=== PATIENT | male | born 1945 | race Caucasian/White ===

== ENCOUNTER 2017-01-28 04:24 | Inpatient (IN) ==
[2017-01-28] MEDS ORDERED: ONDANSETRON 4 MG/2 ML VIAL IV STA (04:47)
[2017-01-28] MEDS ORDERED: NITROGLYCERIN 2% OINT 1 INCH/GM PACK TOP STA (04:47)
[2017-01-28] MEDS ORDERED: ASPIRIN 325 MG TABLET PO STA (04:47)
[2017-01-28] MEDS ORDERED: ALUM/MAG/SIMETH/LIDO VISC 1:1 30 ML BOTTLE PO STA (04:47)
[2017-01-28] MEDS ORDERED: MORPHINE 2 MG/1 ML SYRINGE IV STA (04:47)
--- NOTE | 2017-01-28 04:50 | EKG Report ---
Stationary ECG Study 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
--- NOTE | 2017-01-28 04:50 | EKG Report ---
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
--- NOTE | 2017-01-28 05:26 | Emergency Department Note ---
Madi Sheehan Brittany, am scribing for, and in the presence of, Rufino Reyes MD 05:23. Eric Sheehan Charles R, MD, personally performed the services described in this documentation, ascribed by Tessa Barraza in my presence, and it is both accurate and complete . Arrival - Arrival ED Nursing Triage Note: C/O Midsternal chest pain/sweating waking him up from sleep at 0345. Describes pain as sharp in natures radiating into left shoulder. Reports that the pain lasted approx 10 minutes then went away. Denies having any pain at time of triage. Mode of Arrival: Wheelchair Limitations: No Limitations Source: Patient, RN Notes Reviewed - History of Present Illness Onset (ago): hour(s) (1) Consistency: now resolved Severity: moderate Quality: sharp <Rufino Reyes - Last Filed: 01/28/17 06:08> <Perico Calderón - Last Filed: 01/28/17 07:09> - Arrival Chief Complaint: Chest Pain Stated Complaint: chest pains sweats Time Seen by Provider: 01/28/17 04:42 - History of Present Illness HPI Narrative: Patient is a 71 y/o white male presenting to the ED with c/o sharp, left-sided chest pain that radiates into the shoulder that woke him out of his sleep at 0345 this morning. Patient reports that he did become diaphoretic and clammy, but has not had any shortness of breath or nausea/vomiting. He states that after onset of pain he took an Aspirin with relief. Pain is not worsened upon exertion or taking deep breaths. Patient reports that as of now he feels back to his normal. PMHx of HTN and Diabetes Mellitus, but denies any prior cardiac history. PCP is Dr. Landry. Denies use of cigarettes. No further complaints. (Tessa Barraza) Patient is a 71 y/o white male presenting to the ED with c/o sharp, left-sided chest pain that radiates into the shoulder that woke him out of his sleep at 0345 this morning. Patient reports that he did become diaphoretic and clammy, but has not had any shortness of breath or nausea/vomiting. He states that after onset of pain he took an Aspirin with relief. Pain is not worsened upon exertion or taking deep breaths. Patient reports that as of now he feels back to his normal. PMHx of HTN and Diabetes Mellitus, but denies any prior cardiac history. PCP is Dr. Landry. Denies use of cigarettes. No further complaints. (Rufino Reyes) Allergies/Adverse Reactions: Allergies Allergy/AdvReac Type Severity Reaction Status Date / Time No Known Allergies Allergy Verified 01/28/17 04:28 Home Medications: Home Medications Medication Instructions Recorded Confirmed Type Unable To Obtain [Unable to Obtain] 01/28/17 01/28/17 History Review of System - Review of System 12 point system: reviewed and no additional remarkable complaints except as stated - Review of System Constitutional: Present: diaphoresis Respiratory: Absent: respiratory distress Cardiovascular: Present: chest pain Gastrointestinal: Absent: nausea <Rufino Reyes - Last Filed: 01/28/17 06:08> Medical,Surgical,& Family Hx - Medical History Cardio: History of: Hypertension Endocrine: History of: Dyslipidemia - Social History Smoking Status: Never smoker Frequency of Alcohol Use: None Type of Drug Use: None <Rufino Reyes - Last Filed: 01/28/17 06:08> Exam - General General appearance: alert, in no apparent distress - Head Head exam: Present: atraumatic, normocephalic, normal inspection - Eye Eye exam: Present: normal appearance, PERRL, EOMI - ENT ENT exam: Present: normal exam, normal oropharynx - Neck Neck exam: Present: normal inspection, full ROM, trachea midline - Chest Chest inspection: Present: normal inspection, symmetric chest wall rise - Respiratory Respiratory exam: Present: normal lung sounds bilaterally - Cardiovascular Cardiovascular exam: Present: regular rate, normal rhythm, normal heart sounds - Abdominal Exam Abdominal exam: Present: soft, normal bowel sounds. Absent: tenderness - Extremities Exam Extremities exam: Present: normal inspection - Back Exam Back exam: Present: normal inspection - Neurological Exam Neurological exam: Present: alert, oriented X3, CN II-XII intact. Absent: motor sensory deficit - Psychiatric Psychiatric exam: Present: normal affect, normal mood - Skin Skin exam: Present: warm, dry, intact, normal color <Rufino Reyes - Last Filed: 01/28/17 06:08> Vital Signs: Vital Signs Temperature 98.4 F 01/28/17 04:28 Pulse Rate 53 L 01/28/17 07:00 Respiratory Rate 20 01/28/17 07:00 Blood Pressure 147/77 01/28/17 07:00 O2 Sat by Pulse Oximetry 98 01/28/17 07:00 Course - Consultations Time: 06:08 <Rufino Reyes - Last Filed: 01/28/17 06:08> - Consultations Time: 07:09 <Perico Calderón - Last Filed: 01/28/17 07:09> - Consultations Consultation #1: Signed out to Dr. Calderón assuming care of this patient ER physician (Rufino Reyes) Consultation #2: Discussed with hospitalist. Patient will be seen by them in the emergency department. (Perico Calderón) Results <Rufino Reyes - Last Filed: 01/28/17 06:08> - Labs CBC & BMP: 01/28/17 05:54 01/28/17 05:54 Lab Results: I have reviewed the patients labs - EKG EKG results: interpreted by ERMD - Diagnostic Findings Procedure: Chest x-ray: image reviewed by me (No infiltrates, no pleural effusions.) <Perico Calderón - Last Filed: 01/28/17 07:09> - Labs Labs: Laboratory Tests 01/28/17 05:54 Troponin I < 0.015 (Perico Calderón) - Impressions EKG: Normal sinus rhythm with first-degree AV block, rate 63, nonspecific ST-T wave changes, incomplete right bundle branch block (Perico Calderón) Disposition Case discussed with: patient <Rufino Reyes - Last Filed: 01/28/17 06:08> Case discussed with: patient <Perico Calderón - Last Filed: 01/28/17 07:09> Clinical Impression: Chest pain, Unstable angina Disposition: Still a Patient Condition: Stable
[2017-01-28] MEDS ORDERED: ASPIRIN 325 MG TABLET ONE (05:40)
[2017-01-28] MEDS ORDERED: MORPHINE 2 MG/1 ML SYRINGE ONE (05:40)
[2017-01-28] MEDS ORDERED: ALUM/MAG/SIMETH/LIDO VISC 1:1 30 ML BOTTLE PO ONE (05:40)
[2017-01-28] MEDS ORDERED: ONDANSETRON 4 MG/2 ML VIAL ONE (05:40)
[2017-01-28] MEDS ORDERED: NITROGLYCERIN 2% OINT 1 INCH/GM PACK TOP ONE (05:40)
[2017-01-28 06:12] LABS: Basophils # 0.1 10*3/uL (0.0-0.2); Basophils % 0.7 % (0.0-0.8); Eosinophils # 0.2 10*3/uL (0.0-0.87); Eosinophils % 3.1 % (0.00-10.9); Hematocrit 42.2 VOL% (42.0-52.0); Hemoglobin 14.6 GM/DL (14.0-18.0); Immature Granulocytes % 0.4 %; Immature Granulocytes Absolute 0.03 #; Lymphocytes # 2.4 10*3/uL (1.4-4.0); Lymphocytes % 35.1 % (21.2-54.2); Mean Corpuscular HGB Conc 34.6 GM/DL (32-36); Mean Corpuscular Hemoglobin 35 PG (27-34); Mean Corpuscular Volume 101.2 FL (87-102); Monocytes # 0.7 10*3/uL (0.11-0.8); Monocytes % 10.6 % (1.7-12.7); Neutrophils # 3.4 10*3/uL (1.4-7.4); Neutrophils % 50.1 % (38.7-73.9); Platelet Count 156 T/CUMM (130-400); Red Blood Count 4.17 MC/CUMM (3.8-5.5); White Blood Count 6.8 T/CUMM (4-12)
[2017-01-28 06:35] LABS: Alanine Aminotransferase 47 U/L (16-61); Albumin 3.8 G/DL (3.4-5.0); Alkaline Phosphatase 98 U/L (45-117); Aspartate Amino Transferase 30 U/L (0-37); Bilirubin,Total < 0.39 MG/DL (0.2-1.0); Blood Urea Nitrogen 21 MG/DL (7-18); Calcium 8.8 MG/DL (8.5-10.1); Glucose 108 MG/DL (74-106); Magnesium 2.5 MG/DL (1.8-2.4); Sodium 143 MMOL/L (136-145); Total Protein 6.9 G/DL (6.4-8.3)
[2017-01-28] MEDS ORDERED: ENOXAPARIN 80 MG/0.8 ML SYRINGE SUBCUT STA (06:50)
[2017-01-28] MEDS ORDERED: ENOXAPARIN 80 MG/0.8 ML SYRINGE SUBCUT ONE (06:55)
[2017-01-28] MEDS ORDERED: MAGNESIUM SULF RIDER 2 GM in PREMIX 1 EACH IV PRN (08:13)
[2017-01-28] MEDS ORDERED: INSULIN LISPRO 100 UNIT/ML SUBCUT ONE (08:13)
[2017-01-28] MEDS ORDERED: ONDANSETRON 4 MG/2 ML VIAL IV PRN (08:13)
[2017-01-28] MEDS ORDERED: POTASSIUM CHLORIDE 20 MEQ TABLET PO PRN (08:13)
[2017-01-28] MEDS ORDERED: MAGNESIUM SULF RIDER 4 GM in PREMIX 1 EACH IV PRN (08:13)
--- NOTE | 2017-01-28 08:27 | EKG Report ---
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
--- NOTE | 2017-01-28 09:20 | XRay Report ---
Single view the chest. Indication: Chest pain. The heart is enlarged. The pulmonary vasculature is normal. The lung davidson are clear. No pneumothorax or pleural effusion. Normal osseous structures. Impression: Cardiomegaly. PROCEDURE INTERPRETED AT [facility] DEPARTMENT OF RADIOLOGY Final Report Signed by: Dr. Charlene Myles
--- NOTE | 2017-01-28 09:29 | Hospitalist History & Physical ---
<Ozzie Bansal - Last Filed: 01/28/17 09:09> Assessment and Plan - Time spent with patient Time spent with patient: Greater than 30 minutes (1) Chest pain Status: Acute Assessment and plan: Admit to telemetry. Serial EKGs and troponins. Consult cardiology for possible outpatient stress test. Current Visit: Yes (2) Hypertension Status: Acute Assessment and plan: Generally well controlled on home medications. Continue to monitor and restart home medications. (Patient has asked to take his own medications) Current Visit: Yes (3) Diabetes mellitus Status: Acute Assessment and plan: Continue home medications. Current Visit: Yes History of Present Illness Chief complaint: chest pain History of present illness: Mr. Matos is a 71 year old white male with a risk factors significant for age, hypertension, hyperlipidemia, and diabetes mellitus who presents to the [place] ED with complains of chest pain that started around 0340 this morning. This patient reports that this pain woke him from his sleep at which time he took 1/2 of a 325 mg aspirin then another whole 325 mg aspirin prior to heading to the hospital. He describes this pain as a "sharp electrical shock" that radiated to his left shoulder. He rates it a 7/10. Patient notes that, since taking the aspirin, the pain has subsided. He reports that he has not had any pain since arriving at the emergency room. He denies headache, blurry vision, current chest pain, pain on inspiration, nausea or vomiting, numbness/tingling, edema. Serial EKGs show sinus bradycardia with prolonged [place] interval. Troponins have been negative so far. Lab work reveals: WBC 6.8, hemoglobin 14.6, hematocrit 42.2, platelets 156, sodium 143, potassium 4.0, chloride 115, BUN 21, creatinine 1.00, serum glucose 108, magnesium 2.5. Patient tells me that he is quite active plays tennis, rides bikes, and swims several times a week. He denies alcohol and tobacco use. He reports he has been admitted for similar complaints before; however, his last stress test was in the 80's. Given his history and description of the chest pain, it would not be unwise to admit for observation with cardiology consult. This case has been discussed with Dr. Calderón, ER physician, and Dr. Au , admitting physician, and the patient will be admitted to the hospital medicine service for further evaluation and treatment. Home Medications Medication Instructions Recorded Confirmed Type Aspirin 162.5 mg PO QAM 01/28/17 01/28/17 History Glimepiride [Glimepiride] 2 mg PO QAM 01/28/17 01/28/17 History Metoprolol Succinate Xl [Toprol Xl] 100 mg PO QAM 01/28/17 01/28/17 History Rosuvastatin Calcium [Rosuvastatin 10 mg PO QAM 01/28/17 01/28/17 History Calcium] Allergies Allergy/AdvReac Type Severity Reaction Status Date / Time No Known Allergies Allergy Verified 01/28/17 04:28 Medical,Surgical,& Family Hx - Medical History Cardio: History of: Hypertension Endocrine: History of: Dyslipidemia - Family History Family History: Reports;: Family Diabetes, Family Hypertension, Family Stroke - Social History Smoking Status: Never smoker Frequency of Alcohol Use: None Type of Drug Use: None Marital Status: Lives With:: Spouse Functional capacity: independent ambulation 12 point system: reviewed and no additional remarkable complaints except as stated Exam - Constitutional Vitals: Period Temp Pulse Resp BP Sys/Espinal Pulse Ox Last 24 Hr 98.4 F-98.4 F 53-66 16-220 137-197/70-88 98-100 Exam: General appearance: normal weight, no acute distress - Head Head exam: Present: normocephalic, atraumatic - Eye Eye exam: Present: EOMI. Absent: conjunctival injection, nystagmus Pupils: Present: VIKAS, normal accommodation - ENT ENT exam: Present: normal exam, normal external ear exam - Neck Neck exam: Present: normal inspection. Absent: lymphadenopathy, tenderness, thyromegaly - Respiratory Respiratory exam: Present: clear to auscultation bilaterally. Absent: rales, rhonchi, wheezes - Cardiovascular Cardiovascular exam: Present: regular rate and rhythm. Absent: carotid bruit, gallop, rubs - GI/Abdominal GI/Abdominal exam: Present: normal bowel sounds. Absent: ascites, distended, mass - Extremities Exam Extremities exam: Present: normal inspection, normal capillary refill. Absent: edema - Back Exam Back exam: Absent: CVA tenderness (L), CVA tenderness (R) - Neurological Exam Neurological exam: Present: alert, oriented X3, CN II-XII intact, reflexes normal - Psychiatric Psychiatric exam: Present: normal affect, normal mood - Skin Skin exam: Present: normal color, warm, dry Results - Labs CBC & BMP: 01/28/17 05:54 01/28/17 05:54 Lab Results: I have reviewed the past 24 hour labs - EKG EKG results: interpreted by ROSALIO EKG shows: bradycardia <RoeSpencer - Last Filed: 01/28/17 17:42> History of Present Illness History of present illness: Patient seen and examined independently of MARIE Bansal, agree with history, assessment and plan as documented. Agree that his clinical picture is more consistent with GERD type pain. Cardiology consulted. Plan is for stress test tomorrow. Exam - Constitutional Vitals: Period Temp Pulse Resp BP Sys/Espinal Pulse Ox Last 24 Hr 97.4 F-98.9 F 48-66 16-220 115-197/60-88 96-100 Results - Labs CBC & BMP: 01/28/17 05:54 01/28/17 05:54
[2017-01-28] MEDS: GLIMEPIRIDE 2 MG TABLET PO SCH (13:07)
[2017-01-28] MEDS: ROSUVASTATIN 10 MG TABLET PO SCH (13:08)
[2017-01-28] MEDS: METOPROLOL SUCCINATE XL 100 MG TABLET PO SCH (13:08)
--- NOTE | 2017-01-28 15:06 | Cardiology Consult Note ---
Assessment and Plan (1) Chest pain Status: Acute Assessment and plan: 71-year-old male, presenting with rest onset chest pain, not typical for angina. Type 2 diabetes mellitus, hyperlipidemia, controlled Doubt ACS. Pain is more suggestive of GI or musculoskeletal origin. -We discussed cardiac evaluation options. We will proceed with stress test, n.p.o. 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 He was not seen by cardiology before He was admitted with sudden onset chest pain, which started last night, woke him up from sleep. He described his lower left chest pain, shooting, happening every few seconds, radiating to his left arm. He became anxious, diaphoretic. He took half an aspirin the pain slowly subsided In the ER, EKG showed no ischemic changes, cardiac biomarkers unremarkable. He is not anemic. MCV normal. No prior history of black stools or GI bleed, or ulcer disease. Chest x-ray quite unremarkable. He is currently feeling fine. He is quite active and participates in multiple sports activities, without exertional issues. No lower extremity swelling, history of DVT PE. Has history of hyperlipidemia, type 2 diabetes mellitus, all well-controlled. CC: Spencer Au MD - Home Medications and Allergies Home Medications: Home Medications Medication Instructions Recorded Confirmed Type Aspirin 162.5 mg PO QAM 01/28/17 01/28/17 History Glimepiride [Glimepiride] 2 mg PO QAM 01/28/17 01/28/17 History Metoprolol Succinate Xl [Toprol Xl] 100 mg PO QAM 01/28/17 01/28/17 History Rosuvastatin Calcium [Rosuvastatin 10 mg PO QAM 01/28/17 01/28/17 History Calcium] Allergies/Adverse Reactions: Allergies Allergy/AdvReac Type Severity Reaction Status Date / Time No Known Allergies Allergy Verified 01/28/17 04:28 12 point system: reviewed and no additional remarkable complaints except as stated Medical,Surgical,& Family Hx - Medical History Cardio: History of: Hypertension HEENT: History of: Ear Problem (tinnitus) Endocrine: History of: Dyslipidemia, Endocrine Problems (borderline diabetic) - Family History Family History: Reports;: Family Diabetes, Family Hypertension, Family Stroke - Social History Smoking Status: Never smoker Frequency of Alcohol Use: None Type of Drug Use: None Physical Examination Vital Signs Temp Pulse Resp BP Pulse Ox 98.4 F 66 16 196/88 98 01/28/17 04:28 01/28/17 04:01/28/17 04:01/28/17 04:01/28/17 04:28 General: Present: Appears Well, No Apparent Distress HEENT: Present: Normocephaly, Mucus Membranes Moist Neck: Present: No JVD/HJR, No Bruit, No Thyromegaly Cardiac: Present: Regular Rate, Regular Rhythm, No Murmur Lungs: Present: Normal Breath Sounds, No Wheeze, Rales, Rhonchi Neuro: Present: Grossly Intact Abdomen: Present: Soft, Active Bowel Sounds Skin: Present: Clear Musculoskeletal: Present: No Pain Gait: Present: Normal Gait Extremities: Present: No Clubbing, No Cyanosis, No Edema Result/EKG - Labs CBC & BMP: 01/28/17 05:54 01/28/17 05:54 Lab Results: I have reviewed the past 24 hour labs Labs: Laboratory Results - last 24 hr 01/28/17 01/28/17 01/28/17 05:54 05:54 05:54 WBC 6.8 RBC 4.17 Hgb 14.6 Hct 42.2 MCV 101.2 MCH 35 H MCHC 34.6 RDW 13.0 Plt Count 156 MPV 11.0 Neut % (Auto) 50.1 Lymph % (Auto) 35.1 Hall % (Auto) 10.6 Eos % (Auto) 3.1 Baso % (Auto) 0.7 Neut # (Auto) 3.4 Lymph # (Auto) 2.4 Hall # (Auto) 0.7 Eos # (Auto) 0.2 Baso # (Auto) 0.1 Immature Gran % 0.4 Nucleated RBC % 0.0 Immature Gran # 0.03 Nucleated RBCs # 0.00 Immature Plt Fraction 0.0 Sodium 143 Potassium 4.0 Chloride 110 H Carbon Dioxide 27 Anion Gap 10.0 BUN 21 H Creatinine 1.00 GFR Calculation 82 BUN/Creatinine Ratio 21.00 H Glucose 108 H POC Glucose Calculated Osmolality 288.0 Calcium 8.8 Magnesium 2.5 H Total Bilirubin < 0.39 AST 30 ALT 47 Alkaline Phosphatase 98 Troponin I B-Natriuretic Peptide 55 Total Protein 6.9 Albumin 3.8 Globulin 3.1 Albumin/Globulin Ratio 1.2 Lipase 299.0 01/28/17 01/28/17 01/28/17 05:54 08:30 11:00 WBC RBC Hgb Hct MCV MCH MCHC RDW Plt Count MPV Neut % (Auto) Lymph % (Auto) Hall % (Auto) Eos % (Auto) Baso % (Auto) Neut # (Auto) Lymph # (Auto) Hall # (Auto) Eos # (Auto) Baso # (Auto) Immature Gran % Nucleated RBC % Immature Gran # Nucleated RBCs # Immature Plt Fraction Sodium Potassium Chloride Carbon Dioxide Anion Gap BUN Creatinine GFR Calculation BUN/Creatinine Ratio Glucose POC Glucose Calculated Osmolality Calcium Magnesium Total Bilirubin AST ALT Alkaline Phosphatase Troponin I < 0.015 < 0.015 < 0.015 B-Natriuretic Peptide Total Protein Albumin Globulin Albumin/Globulin Ratio Lipase 01/28/17 12:39 WBC RBC Hgb Hct MCV MCH MCHC RDW Plt Count MPV Neut % (Auto) Lymph % (Auto) Hall % (Auto) Eos % (Auto) Baso % (Auto) Neut # (Auto) Lymph # (Auto) Hall # (Auto) Eos # (Auto) Baso # (Auto) Immature Gran % Nucleated RBC % Immature Gran # Nucleated RBCs # Immature Plt Fraction Sodium Potassium Chloride Carbon Dioxide Anion Gap BUN Creatinine GFR Calculation BUN/Creatinine Ratio Glucose POC Glucose 200 H Calculated Osmolality Calcium Magnesium Total Bilirubin AST ALT Alkaline Phosphatase Troponin I B-Natriuretic Peptide Total Protein Albumin Globulin Albumin/Globulin Ratio Lipase - EKG EKG results: interpreted by me
[2017-01-28] MEDS: INSULIN LISPRO 100 UNIT/ML SUBCUT SCH ×2 (17:22→20:53)
--- NOTE | 2017-01-28 18:18 | EKG Report ---
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
[2017-01-29 06:43] LABS: Risk Ratio 2.77; VLDL CHOLESTEROL 15.2 MG/DL
--- NOTE | 2017-01-29 09:46 | Cardiology Progress Note ---
Assessment and Plan - Time spent with patient Time spent with patient: Less than 30 minutes (1) Chest pain Status: Acute Assessment and plan: See plan of care listed below. Current Visit: Yes (2) Hypertension Status: Chronic Assessment and plan: See plan of care listed below. Current Visit: Yes (3) Diabetes mellitus Status: Chronic Assessment and plan: See plan of care listed below. Current Visit: Yes (4) Hyperlipidemia Status: Chronic Assessment and plan: See plan of care listed below. 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 Matos is a 71-year-old WM who is known to cardiology. He is admitted to the hospital with sudden onset chest pain which woke him up from sleep, not typical for angina. His EKG and cardiac biomarkers have been unremarkable. He is quite active and participates in multiple sports activities without exertional issues. Cardiac evaluation options were discussed and he was scheduled for nuclear stress testing this morning. 2016: Patient underwent nuclear stress testing this morning without difficulty. Results pending. He will be held NPO pending results of stress test. He denies any further episodes of chest discomfort. His vital signs and lab work are stable. His pain is more suggestive of GI or musculoskeletal etiology; if stress test negative, would pursue evaluation for other causes. Dr. Ingram to follow with further plan an addendum. IMPRESSION/PLAN: 1. CHEST PAIN: Patient underwent nuclear stress testing this morning without difficulty. His EKGs and cardiac biomarkers have remained unremarkable. If stress test is negative, would pursue further evaluation of GI or musculoskeletal etiology of pain. Continue aspirin, Crestor, Toprol-XL. 2. HYPERTENSION: Continue Toprol-XL. Currently well controlled. Will continue to monitor and adjust accordingly. 3. DIABETES MELLITUS: He is on Accu-Cheks with sliding scale insulin. 4. HYPERLIPIDEMIA: LDL 96. Continue Crestor. Exam (Progress Note) - Constitutional Vitals: Period Temp Pulse Resp BP Sys/Espinal Pulse Ox Last 24 Hr 97.4 F-99 F 50-63 17-20 115-155/67-88 95-98 Exam: General appearance: Appears well. Pleasant and cooperative. Overweight, no acute distress. Head exam: Present: normal inspection, normocephalic, atraumatic. Absent: hematoma, laceration Eye exam: Present: EOMI. Absent: conjunctival injection, nystagmus, periorbital swelling, scleral icterus, laceration to eyelids, jaundice Pupils: Present: PERRL. Absent: constricted, dilated, fixed, irregular, unequal ENT exam: Present: normal exam, normal external ear exam, mucous membranes moist. Neck exam: Present: normal inspection, midline trachea. Absent: masses, lymphadenopathy, tenderness, thyromegaly, carotid bruit Respiratory exam: Present: clear to auscultation bilaterally. Absent: accessory muscle use, chest wall tenderness, rales, rhonchi, wheezing. Cardiovascular exam: Present: regular rate and rhythm. Absent: gallop, JVD, rubs, murmur GI/Abdominal exam: Present: normal bowel sounds, soft. Absent: distended, firm , hernia, mass, tenderness. Extremities exam: Present: Normal Gait, No Clubbing, No Cyanosis, Upper Extr. Pulses 2+, Lower Extr. Pulses 2+, No edema. Capillary refill less than 3 seconds. Musculoskeletal: Present: No Fluid Collection, No Pain, Normal Range of Motion Back exam: Present: normal inspection. Absent: muscle spasm, vertebral tenderness Neurological exam: Present: awake, alert, oriented X3, Moves all extremities well without hemiparesis or paralysis. Grossly intact without resting or essential tremor Psychiatric exam: Present: normal affect, normal mood Skin exam: Present: normal color, warm, dry, intact. Absent: cyanosis, diaphoretic, rash, urticaria Result/EKG - Labs CBC & BMP: 01/28/17 05:54 01/28/17 05:54 Lab Results: I have reviewed the past 24 hour labs Labs: Laboratory Results - last 24 hr 01/28/17 01/28/17 01/28/17 11:00 12:39 16:46 POC Glucose 200 H 187 H Troponin I < 0.015 Triglycerides Cholesterol LDL Cholesterol VLDL Cholesterol HDL Cholesterol Heart Disease Risk Ratio 01/28/17 01/29/17 19:38 05:36 POC Glucose 109 H Troponin I Triglycerides 76 Cholesterol 172 LDL Cholesterol 96.0 VLDL Cholesterol 15.2 HDL Cholesterol 62 H Heart Disease Risk Ratio 2.77 - EKG EKG results: interpreted by me, sinus rhythm (With first-degree AV block)
--- NOTE | 2017-01-29 09:48 | Event Note ---
Patient with atypical chest pain for nuclear stress test this morning. Resting EKG showed sinus rhythm with first-degree AV block. Patient had approximately 1.5-[address] depression inferior laterally during stress testing, improved with rest. No other significant EKG changes noted. Target heart rate achieved in stage III of Joaquim protocol. Blood pressure responded appropriately. Patient had moderate dyspnea on exertion and fatigue, fair exercise tolerance. No chest pain, heaviness, or tightness. No dizziness, lightheadedness, or syncope. Patient now to nuclear medicine for final scan. Dr. Ingram to read, interpreted, and advise.
[2017-01-29] MEDS: INSULIN LISPRO 100 UNIT/ML SUBCUT SCH ×4 (10:29→21:56)
[2017-01-29] MEDS: ROSUVASTATIN 10 MG TABLET PO SCH (10:31)
[2017-01-29] MEDS: GLIMEPIRIDE 2 MG TABLET PO SCH (10:31)
[2017-01-29] MEDS: METOPROLOL SUCCINATE XL 100 MG TABLET PO SCH (10:31)
[2017-01-29] MEDS ORDERED: RANITIDINE 150 MG TABLET PO SCH (13:00)
[2017-01-29] MEDS: ASPIRIN EC 325 MG TABLET PO SCH (13:26)
[2017-01-29] MEDS ORDERED: MAGNESIUM SULF RIDER 2 GM in PREMIX 1 EACH IV PRN (17:30)
[2017-01-29] MEDS ORDERED: POTASSIUM CHLORIDE RIDER 10 MEQ in PREMIX 1 EACH IV PRN (17:30)
--- NOTE | 2017-01-29 18:00 | Hospitalist Progress Note ---
Assessment and Plan (1) Chest pain Status: Acute Assessment and plan: The patient has been offered coronary arteriogram due to abnormal stress test. Current Visit: Yes (2) Hypertension Status: Chronic Current Visit: Yes (3) Diabetes mellitus Status: Chronic Current Visit: Yes Hospitalist: Subjective Interval history: Mr. Matos was admitted to the hospital with chest pain which awakened him about 2 AM. The patient had treadmill exercise test today and had some ST depression. He has been offered coronary arteriogram for tomorrow morning. Exam - Constitutional Vitals: Period Temp Pulse Resp BP Sys/Espinal Pulse Ox Last 24 Hr 97.3 F-99 F 50-58 18-20 119-155/71-79 95-100 General appearance: normal weight - Respiratory Respiratory exam: Present: clear to auscultation bilaterally - Cardiovascular Cardiovascular exam: Present: regular rate and rhythm - GI/Abdominal GI/Abdominal exam: Present: normal bowel sounds Results - Labs CBC & BMP: 01/28/17 05:54 01/28/17 05:54 Lab Results: I have reviewed the past 24 hour labs
[2017-01-29] MEDS ORDERED: CLORAZEPATE 3.75 MG TABLET PO PRN (18:37)
[2017-01-29] MEDS ORDERED: hydrALAZINE 20 MG/1 ML VIAL IV ONE (21:02)
--- NOTE | 2017-01-29 21:23 | Nuclear Medicine Report ---
ATTENDING PHYSICIAN: Dr. Au. BRIEF CLINICAL SUMMARY: The patient is a 71-year-old with history of chest pain. EXERCISE SESTAMIBI MYOCARDIAL PERFUSION SCAN WITH GATING: The patient was injected with 10 mCi of sestamibi before being sent for resting images to be obtained. He was then placed on a treadmill where he completed achieved target heart rate in stage III on a Naima protocol. He had moderate dyspnea on exertion and fatigue, but had no chest discomfort. He had some significant greater than [address] depression that is flat in the anterolateral leads. At peak exercise, he was injected with 30 mCi of sestamibi and later sent for stress images to be obtained. The 3-D orthogonal and reconstruction views show a modest-sized reversible anterior defect of moderate severity. Perfusion of the inferior and lateral segments appears to be normal. The gated stress images show normal LV systolic function with ejection fraction estimated to be 58%. Wall motion is normal by regional wall motion analysis with normal end- diastolic volume. The raw data in cine mode shows moderate increased pulmonary uptake with moderate patient motion. There is modest artifact from the subdiaphragmatic structures. IMPRESSION: 1. CLINICALLY UNREMARKABLE AND ELECTROCARDIOGRAPHICALLY POSITIVE EXERCISE TREADMILL TEST WITH GREATER THAN [address] DEPRESSION NOTED AT ONE MINUTE AND 32 SECONDS IN STAGE III ON A NAIMA PROTOCOL WITH MILD BASELINE ABNORMALITY. 2. MODERATE ANTERIOR ISCHEMIA NOTED ON MYOCARDIAL SCAN OTHERWISE NORMAL. 3. NORMAL LEFT VENTRICULAR SYSTOLIC FUNCTION WITH EJECTION FRACTION ESTIMATED TO BE 58%. 4. NORMAL WALL MOTION BY REGIONAL WALL MOTION ANALYSIS WITH NORMAL END- DIASTOLIC VOLUME. DISPOSITION: This study suggesting moderate amount of anterior ischemia without scarring or abnormality on the distributions. The patient has normal LV function and fairly good exercise tolerance or encouraging with regard to his cardiovascular prognosis. Consider invasive evaluation versus medical therapy. Procedure performed and interpreted at [facility] Department of Radiology. [facility]
[2017-01-29] MEDS: FAMOTIDINE 20 MG TABLET PO SCH (21:52)
[2017-01-30 05:47] LABS: Basophils % 0.6 % (0.0-0.8); Eosinophils # 0.2 10*3/uL (0.0-0.87); Eosinophils % 3.6 % (0.00-10.9); Hematocrit 39.8 VOL% (42.0-52.0); Hemoglobin 13.8 GM/DL (14.0-18.0); Immature Granulocytes % 0.3 %; Immature Granulocytes Absolute 0.02 #; Lymphocytes # 2.4 10*3/uL (1.4-4.0); Lymphocytes % 38.3 % (21.2-54.2); Mean Corpuscular HGB Conc 34.7 GM/DL (32-36); Mean Corpuscular Hemoglobin 35 PG (27-34); Mean Corpuscular Volume 99.7 FL (87-102); Mean Platelet Volume 11.1 FL (9.6-12.0); Monocytes # 0.7 10*3/uL (0.11-0.8); Monocytes % 11.1 % (1.7-12.7); NRBC # 0.03 10*3/uL; Neutrophils # 2.9 10*3/uL (1.4-7.4); Neutrophils % 46.1 % (38.7-73.9); Platelet Count 149 T/CUMM (130-400); Red Blood Count 3.99 MC/CUMM (3.8-5.5); White Blood Count 6.3 T/CUMM (4-12)
[2017-01-30 05:59] LABS: PT Patient Result 10.4 SECS
[2017-01-30 06:18] LABS: Calcium 8.4 MG/DL (8.5-10.1); Magnesium 2.4 MG/DL (1.8-2.4); Potassium 3.9 MMOL/L (3.5-5.1)
[2017-01-30] MEDS ORDERED: diphenhydrAMINE CAP 25 MG CAPSULE PO ONE (07:00)
[2017-01-30] MEDS ORDERED: DIAZEPAM 5 MG TABLET PO ONE (07:00)
--- NOTE | 2017-01-30 08:27 | History and Physical Update ---
Sedation H&P Update - History and Physical H&P was reviewed, the patient examined and there: are no changes in the patients condition since last H&P was completed. (The patient had a high risk stress test with ST depression and reversible ischemia in the anterior ventricular myocardium EF 58%) - Dictation Physical: refer to H&P completed by admitting physician - Physical Exam Mental Status: alert and oriented Heart: regular rate and rhythm Lung: clear to auscultation Abdomen: within normal limits Vitals: within normal limits - Sedation Plan for Sedation: moderate Patient Consent: Procedure disscussed with patient and patinet has consented., Risks and benefits were discussed with patient,including infection,, bleeding, injury to surrounding structures, seizure, temporary nerve, Patient understands and accepts potential risks/benefits and agrees to, proceed. ASA Class: II Airway Assessment: Class II: Soft palate, uvula, fauces visible
[2017-01-30] MEDS: METOPROLOL SUCCINATE XL 100 MG TABLET PO SCH (08:28)
[2017-01-30] MEDS: ROSUVASTATIN 10 MG TABLET PO SCH (08:28)
[2017-01-30] MEDS: ASPIRIN EC 325 MG TABLET PO SCH (08:29)
[2017-01-30] MEDS: FAMOTIDINE 20 MG TABLET PO SCH ×2 (08:29→21:06)
[2017-01-30] MEDS ORDERED: LIDOCAINE 1% 20 ML VIAL ONE (08:32)
[2017-01-30] MEDS ORDERED: HEPARIN/NACL 0.9% 2 UNITS/ML 1,000 ML IV ONE (08:32)
[2017-01-30] MEDS ORDERED: NITROGLYCERIN DRIP 50 MG/250 ML BOTTLE IV ONE (08:32)
[2017-01-30] MEDS ORDERED: VERAPAMIL 5 MG/2 ML VIAL ONE (08:32)
[2017-01-30] MEDS: INSULIN LISPRO 100 UNIT/ML SUBCUT SCH ×4 (08:41→21:13)
[2017-01-30] MEDS ORDERED: MIDAZOLAM 2 MG/2 ML VIAL ONE (08:48)
[2017-01-30] MEDS ORDERED: fentaNYL 100 MCG/2 ML VIAL ONE (08:48)
[2017-01-30] MEDS ORDERED: ENOXAPARIN 60 MG/0.6 ML SYRINGE ONE (09:00)
--- NOTE | 2017-01-30 09:46 | Event Note ---
Please see the [facility] operative note. The patient has triple-vessel coronary disease been referred for coronary bypass grafting Dr. Rose saw the patient the Tamper Operator the patient will be scheduled for multivessel coronary bypass grafting on . I discussed with the patient I discussed with the patient' s Dr. Rose discussed with the patient's will discuss and examined the patient tomorrow morning.
[2017-01-30] MEDS ORDERED: GLUCAGON 1 MG VIAL IM PRN (09:56)
[2017-01-30] MEDS ORDERED: DEXTROSE 50% 25 GM/50 ML VIAL IV PRN (09:56)
[2017-01-30] MEDS ORDERED: SODIUM CHLORIDE 0.45% 1,000 ML IV SCH (10:00)
[2017-01-30] MEDS ORDERED: SODIUM CHLORIDE 0.9% 1,000 ML IV SCH (10:00)
--- NOTE | 2017-01-30 10:00 | Cardiothoracic Progress Note ---
Cardiothoracic Subjective Interval history: Patient is a 71-year-old man with severe coronary disease including left main coronary involvement. I reviewed the films and discussed with Dr. Oakley and we both agree that coronary bypass surgery is best approach. Our tentative plan is for surgery morning. Exam (Progress Note) - Constitutional Vitals: Period Temp Pulse Resp BP Sys/Espinal Pulse Ox Last 24 Hr 97.3 F-98.1 F 51-56 18-20 119-173/63-89 96-100 Result/EKG - Labs CBC & BMP: 01/30/17 05:23 01/30/17 05:23 Labs: Laboratory Results - last 24 hr 01/29/17 01/29/17 01/30/17 07:25 12:13 05:23 WBC 6.3 RBC 3.99 Hgb 13.8 L Hct 39.8 L MCV 99.7 MCH 35 H MCHC 34.7 RDW 13.0 Plt Count 149 MPV 11.1 Neut % (Auto) 46.1 Lymph % (Auto) 38.3 [place] % (Auto) 11.1 Eos % (Auto) 3.6 Baso % (Auto) 0.6 Neut # (Auto) 2.9 Lymph # (Auto) 2.4 [place] # (Auto) 0.7 Eos # (Auto) 0.2 Baso # (Auto) 0.0 Immature Gran % 0.3 Nucleated RBC % 0.5 Immature Gran # 0.02 Nucleated RBCs # 0.03 Immature Plt Fraction 0.0 INR PT Patient/Control Mix Sodium Potassium Chloride Carbon Dioxide Anion Gap BUN Creatinine GFR Calculation BUN/Creatinine Ratio Glucose POC Glucose 91 102 Calculated Osmolality Calcium Magnesium 01/30/17 01/30/17 01/30/17 05:23 05:23 07:30 WBC RBC Hgb Hct MCV MCH MCHC RDW Plt Count MPV Neut % (Auto) Lymph % (Auto) [place] % (Auto) Eos % (Auto) Baso % (Auto) Neut # (Auto) Lymph # (Auto) [place] # (Auto) Eos # (Auto) Baso # (Auto) Immature Gran % Nucleated RBC % Immature Gran # Nucleated RBCs # Immature Plt Fraction INR 1.0 PT Patient/Control Mix 10.4 Sodium 143 Potassium 3.9 Chloride 110 H Carbon Dioxide 26 Anion Gap 10.9 BUN 17 Creatinine 0.90 GFR Calculation 93 BUN/Creatinine Ratio 18.00 Glucose 99 POC Glucose 111 H Calculated Osmolality 286.0 Calcium 8.4 L Magnesium 2.4 Quality Measures - VTE Contraindication to Pharmacological VTE Prophylaxis: Already on Theraputic Agent , No Prophylaxis Needed
[2017-01-30 10:20] LABS: Basophils % 0.7 % (0.0-0.8); Eosinophils # 0.2 10*3/uL (0.0-0.87); Eosinophils % 3.1 % (0.00-10.9); Hematocrit 40.2 VOL% (42.0-52.0); Immature Granulocytes % 0.4 %; Immature Granulocytes Absolute 0.02 #; Lymphocytes # 1.9 10*3/uL (1.4-4.0); Lymphocytes % 33.2 % (21.2-54.2); Mean Corpuscular HGB Conc 34.8 GM/DL (32-36); Mean Corpuscular Hemoglobin 35 PG (27-34); Monocytes # 0.5 10*3/uL (0.11-0.8); Neutrophils % 53.6 % (38.7-73.9); Platelet Count 147 T/CUMM (130-400); Red Blood Count 4.02 MC/CUMM (3.8-5.5); White Blood Count 5.6 T/CUMM (4-12)
[2017-01-30] MEDS: GLIMEPIRIDE 2 MG TABLET PO SCH (12:50)
--- NOTE | 2017-01-30 15:57 | Hospitalist Progress Note ---
Assessment and Plan (1) Chest pain Status: Acute Assessment and plan: The patient is scheduled for CAB on . Current Visit: Yes (2) Hypertension Status: Chronic Current Visit: Yes (3) Diabetes mellitus Status: Chronic Current Visit: Yes Hospitalist: Subjective Interval history: The patient had an abnormal stress test. Coronary Arteriogram shows multivessel disease with left main involvement. The patient is scheduled for CAB on . Exam - Constitutional Vitals: Period Temp Pulse Resp BP Sys/Espinal Pulse Ox Last 24 Hr 97.1 F-98.1 F 40-61 14-20 96-173/42-89 97-100 General appearance: no acute distress - Respiratory Respiratory exam: Present: clear to auscultation bilaterally - Cardiovascular Cardiovascular exam: Present: regular rate and rhythm Results - Labs CBC & BMP: 01/30/17 10:12 01/30/17 05:23 Lab Results: I have reviewed the past 24 hour labs Quality Measures - VTE Contraindication to Pharmacological VTE Prophylaxis: Already on Theraputic Agent , No Prophylaxis Needed
[2017-01-30] MEDS: CHLORHEXIDINE 0.12% ORAL RINSE 60 ML BOTTLE SWISH/SPIT SCH (21:06)
[2017-01-31 03:52] LABS: ABG Base Excess -0.7 MMOL/L (-2.5-2.5); ABG HCO3 23.8 MMOL/L (20-26); ABG Oxygen Saturation 97.7 % (95-100); ABG PCO2 35.9 MM HG (35-48); ABG PH 7.419 (7.35-7.45); ABG TCO2 19.9 MMOL/L (23-27); Allen Test Positive; Pt O2 Delivery Device Room Air
[2017-01-31 05:36] LABS: Basophils # 0.1 10*3/uL (0.0-0.2); Basophils % 0.8 % (0.0-0.8); Eosinophils # 0.3 10*3/uL (0.0-0.87); Hematocrit 40.5 VOL% (42.0-52.0); Hemoglobin 13.7 GM/DL (14.0-18.0); Immature Granulocytes % 0.3 %; Immature Granulocytes Absolute 0.02 #; Lymphocytes # 2.5 10*3/uL (1.4-4.0); Lymphocytes % 38.5 % (21.2-54.2); Mean Corpuscular HGB Conc 33.8 GM/DL (32-36); Mean Corpuscular Hemoglobin 34 PG (27-34); Mean Corpuscular Volume 100.5 FL (87-102); Monocytes # 0.6 10*3/uL (0.11-0.8); Monocytes % 9.6 % (1.7-12.7); Neutrophils # 3.1 10*3/uL (1.4-7.4); Neutrophils % 46.8 % (38.7-73.9); Platelet Count 141 T/CUMM (130-400); Red Blood Count 4.03 MC/CUMM (3.8-5.5); Red Cell Distribution Width 13.2 % (9.3-17.3); White Blood Count 6.5 T/CUMM (4-12)
[2017-01-31 06:06] LABS: Calcium 8.3 MG/DL (8.5-10.1); Osmolality,Calculated 282.3 MOS/KG (273-304); Potassium 4.1 MMOL/L (3.5-5.1)
[2017-01-31 06:10] LABS: Albumin 3.3 G/DL (3.4-5.0); Bilirubin,Total 0.7 MG/DL (0.2-1.0); Calcium 8.5 MG/DL (8.5-10.1); Osmolality,Calculated 282.3 MOS/KG (273-304); Potassium 4.1 MMOL/L (3.5-5.1); Total Protein 6.2 G/DL (6.4-8.3)
--- NOTE | 2017-01-31 06:27 | Cardiothoracic Progress Note ---
Cardiothoracic Subjective Interval history: Patient is scheduled for surgery morning. This is been discussed at length with the patient's and I will discuss further with her and with her later this morning. Her was still sedated when I saw him yesterday. Exam (Progress Note) - Constitutional Vitals: Period Temp Pulse Resp BP Sys/Espinal Pulse Ox Last 24 Hr 97.1 F-98.0 F 40-61 14-20 96-155/42-72 97-100 Result/EKG - Labs CBC & BMP: 01/31/17 05:14 01/31/17 05:14 Labs: Laboratory Results - last 24 hr 01/30/17 01/30/17 01/30/17 07:30 10:12 12:06 WBC 5.6 RBC 4.02 Hgb 14.0 Hct 40.2 L MCV 100.0 MCH 35 H MCHC 34.8 RDW 13.0 Plt Count 147 MPV 11.0 Neut % (Auto) 53.6 Lymph % (Auto) 33.2 [place] % (Auto) 9.0 Eos % (Auto) 3.1 Baso % (Auto) 0.7 Neut # (Auto) 3.0 Lymph # (Auto) 1.9 [place] # (Auto) 0.5 Eos # (Auto) 0.2 Baso # (Auto) 0.0 Immature Gran % 0.4 Nucleated RBC % 0.0 Immature Gran # 0.02 Nucleated RBCs # 0.00 Immature Plt Fraction 0.0 ABG pH ABG pCO2 ABG pO2 ABG HCO3 ABG Total CO2 ABG O2 Saturation ABG Base Excess FiO2 Sodium Potassium Chloride Carbon Dioxide Anion Gap BUN Creatinine GFR Calculation BUN/Creatinine Ratio Glucose POC Glucose 111 H 97 Calculated Osmolality Calcium Total Bilirubin AST ALT Alkaline Phosphatase Total Protein Albumin Globulin Albumin/Globulin Ratio Blood Type Antibody Screen 01/30/17 01/30/17 01/31/17 15:20 21:09 03:37 WBC RBC Hgb Hct MCV MCH MCHC RDW Plt Count MPV Neut % (Auto) Lymph % (Auto) [place] % (Auto) Eos % (Auto) Baso % (Auto) Neut # (Auto) Lymph # (Auto) [place] # (Auto) Eos # (Auto) Baso # (Auto) Immature Gran % Nucleated RBC % Immature Gran # Nucleated RBCs # Immature Plt Fraction ABG pH 7.419 ABG pCO2 35.9 ABG pO2 101.0 H ABG HCO3 23.8 ABG Total CO2 19.9 L ABG O2 Saturation 97.7 ABG Base Excess -0.7 FiO2 21.00 Sodium Potassium Chloride Carbon Dioxide Anion Gap BUN Creatinine GFR Calculation BUN/Creatinine Ratio Glucose POC Glucose 161 H 117 H Calculated Osmolality Calcium Total Bilirubin AST ALT Alkaline Phosphatase Total Protein Albumin Globulin Albumin/Globulin Ratio Blood Type Antibody Screen 01/31/17 01/31/17 01/31/17 05:14 05:14 05:14 WBC 6.5 RBC 4.03 Hgb 13.7 L Hct 40.5 L MCV 100.5 MCH 34 MCHC 33.8 RDW 13.2 Plt Count 141 MPV 11.0 Neut % (Auto) 46.8 Lymph % (Auto) 38.5 [place] % (Auto) 9.6 Eos % (Auto) 4.0 Baso % (Auto) 0.8 Neut # (Auto) 3.1 Lymph # (Auto) 2.5 [place] # (Auto) 0.6 Eos # (Auto) 0.3 Baso # (Auto) 0.1 Immature Gran % 0.3 Nucleated RBC % 0.0 Immature Gran # 0.02 Nucleated RBCs # 0.00 Immature Plt Fraction 0.0 ABG pH ABG pCO2 ABG pO2 ABG HCO3 ABG Total CO2 ABG O2 Saturation ABG Base Excess FiO2 Sodium 141 141 Potassium 4.1 4.1 Chloride 109 H 109 H Carbon Dioxide 24 24 Anion Gap 12.1 12.1 BUN 19 H 19 H Creatinine 0.90 0.90 GFR Calculation 93 93 BUN/Creatinine Ratio 21.00 H 21.00 H Glucose 100 103 POC Glucose Calculated Osmolality 282.3 282.3 Calcium 8.3 L 8.5 Total Bilirubin 0.70 AST 25 ALT 35 Alkaline Phosphatase 87 Total Protein 6.2 L Albumin 3.3 L Globulin 2.9 Albumin/Globulin Ratio 1.1 Blood Type Antibody Screen 01/31/17 01/31/17 05:15 Unknown WBC RBC Hgb Hct MCV MCH MCHC RDW Plt Count MPV Neut % (Auto) Lymph % (Auto) [place] % (Auto) Eos % (Auto) Baso % (Auto) Neut # (Auto) Lymph # (Auto) [place] # (Auto) Eos # (Auto) Baso # (Auto) Immature Gran % Nucleated RBC % Immature Gran # Nucleated RBCs # Immature Plt Fraction ABG pH ABG pCO2 ABG pO2 ABG HCO3 ABG Total CO2 ABG O2 Saturation ABG Base Excess FiO2 Sodium Potassium Chloride Carbon Dioxide Anion Gap BUN Creatinine GFR Calculation BUN/Creatinine Ratio Glucose POC Glucose Calculated Osmolality Calcium Total Bilirubin AST ALT Alkaline Phosphatase Total Protein Albumin Globulin Albumin/Globulin Ratio Blood Type A POSITIVE A POSITIVE Antibody Screen Negative Quality Measures - VTE Contraindication to Pharmacological VTE Prophylaxis: Already on Theraputic Agent , No Prophylaxis Needed
--- NOTE | 2017-01-31 07:49 | EKG Report ---
Stationary ECG Study [facility] Test Date: 01/31/2017 7:50:59 AM Pat Name: EDU MERA Department: Room: 280 Gender: M Back Hoe Operator: MAGGI : [id number] Requested by: Jay Overton Order Number: [id number] Reading MD: LAMAR MORLEY Intervals [place] Rate: 57 P: 70 VT: 219 QRS: 23 QRSD: 86 T: 44 QT: 432 QTc: 425 Interpretive Statements SINUS RHYTHM WITH FIRST-DEGREE A-V B, WITH OCCASIONAL SUPRAVENTRICULAR PREMATURE COMPLEXES at 57 bpm POSSIBLE RIGHT VENTRICULAR CONDUCTION DELAY SEPTAL MYOCARDIAL INFARCTION, OF INDETERMINATE AGE Electronically Signed On 02-03-17 12:16:35 CDT by LAMAR MORLEY [email or web address]
--- NOTE | 2017-01-31 08:25 | XRay Report ---
XR chest 2V Indication: Coronary artery disease Comparison: 28 January 2017 Findings: The heart and mediastinum are normal in size and configuration. The pulmonary vascularity is normal in caliber. No lung infiltrates, effusions, pneumothorax or other abnormality is demonstrated. Impression: No acute cardiopulmonary disease. PROCEDURE INTERPRETED AT [facility] DEPARTMENT OF RADIOLOGY Final Report Signed by: Dr. Olayinka Saeed
[2017-01-31] MEDS: GLIMEPIRIDE 2 MG TABLET PO SCH (09:09)
[2017-01-31] MEDS: ROSUVASTATIN 10 MG TABLET PO SCH (09:10)
[2017-01-31] MEDS: ASPIRIN EC 325 MG TABLET PO SCH (09:10)
[2017-01-31] MEDS: FAMOTIDINE 20 MG TABLET PO SCH (09:10)
[2017-01-31] MEDS: CHLORHEXIDINE 0.12% ORAL RINSE 60 ML BOTTLE SWISH/SPIT SCH ×2 (09:11→21:28)
[2017-01-31] MEDS: INSULIN LISPRO 100 UNIT/ML SUBCUT SCH ×4 (09:17→21:35)
[2017-01-31] MEDS: METOPROLOL SUCCINATE XL 100 MG TABLET PO SCH (09:20)
[2017-01-31] MEDS ORDERED: CEFUROXIME INJ 1,500 MG in SODIUM CHLORIDE 0.9% 100 ML IV ONE (09:56)
[2017-01-31] MEDS: CHLORHEXIDINE 4% SOLN 118 ML BOTTLE TOP SCH ×2 (11:00→21:28)
--- NOTE | 2017-01-31 14:34 | Hospitalist Progress Note ---
Assessment and Plan (1) Chest pain Status: Acute Assessment and plan: The patient is scheduled for CAB on . Current Visit: Yes (2) Hypertension Status: Chronic Current Visit: Yes (3) Diabetes mellitus Status: Chronic Current Visit: Yes Hospitalist: Subjective Interval history: Mr. Matos has no further angina. The patient says that he is ready for his bypass surgery tomorrow. Exam - Constitutional Vitals: Period Temp Pulse Resp BP Sys/Espinal Pulse Ox Last 24 Hr 97.1 F-98.2 F 46-60 16-18 104-155/57-79 95-99 General appearance: no acute distress - Respiratory Respiratory exam: Present: clear to auscultation bilaterally - Cardiovascular Cardiovascular exam: Present: regular rate and rhythm Results - Labs CBC & BMP: 01/31/17 05:14 01/31/17 05:14 Lab Results: I have reviewed the past 24 hour labs Quality Measures - VTE Contraindication to Pharmacological VTE Prophylaxis: Already on Theraputic Agent , No Prophylaxis Needed
--- NOTE | 2017-01-31 14:51 | Cardiology Progress Note ---
Assessment and Plan - Time spent with patient Time spent with patient: Less than 30 minutes (1) Coronary artery disease Status: Acute Assessment and plan: See plan of care listed below. Current Visit: Yes (2) Hypertension Status: Chronic Assessment and plan: See plan of care listed below. Current Visit: Yes (3) Diabetes mellitus Status: Chronic Assessment and plan: See plan of care listed below. Current Visit: Yes (4) Hyperlipidemia Status: Chronic Assessment and plan: See plan of care listed below. Current Visit: Yes Cardiology - PN: Subj Interval history: Non Destructive Evaluation Manager: new to Dr. Cardona SUMMARY: Mr. Matos is a 71-year-old WM who is known to cardiology. He is admitted to the hospital with sudden onset chest pain which woke him up from sleep, not typical for angina. His EKG and cardiac biomarkers have been unremarkable. He is quite active and participates in multiple sports activities without exertional issues. He had an abnormal stress test and underwent cardiac catheterization which revealed severe 3 vessel coronary artery disease. He was referred to Dr. Rose for CABG and is planned for surgery on 02/01/17. 2016: Mr. Matos is doing well today. He has no complaints. His right radial cath site looks good. It is covered with a bandaid. There is no bleeding, hematoma, or bruit at site. Right radial pulse is 3+. He is scheduled for CABG in the morning with Dr. Rose. We will continue to follow post operatively. Dr. Ingram to follow with further plan and addendum. IMPRESSION/PLAN: 1. CORONARY ARTERY DISEASE: Patient is for CABG on 02/01/17. C revealed severe three-vessel coronary artery disease. 2. HYPERTENSION: Continue Toprol-XL. Currently well controlled. Will continue to monitor and adjust accordingly. 3. DIABETES MELLITUS: He is on Accu-Cheks with sliding scale insulin. 4. HYPERLIPIDEMIA: LDL 96. Continue Crestor. Exam (Progress Note) - Constitutional Vitals: Period Temp Pulse Resp BP Sys/Espinal Pulse Ox Last 24 Hr 97.1 F-98.2 F 46-60 16-18 104-155/57-79 95-99 Exam: General appearance: Appears well. Pleasant and cooperative. Overweight, no acute distress. Head exam: Present: normal inspection, normocephalic, atraumatic. Absent: hematoma, laceration Eye exam: Present: EOMI. Absent: conjunctival injection, nystagmus, periorbital swelling, scleral icterus, laceration to eyelids, jaundice Pupils: Present: PERRL. Absent: constricted, dilated, fixed, irregular, unequal ENT exam: Present: normal exam, normal external ear exam, mucous membranes moist. Neck exam: Present: normal inspection, midline trachea. Absent: masses, lymphadenopathy, tenderness, thyromegaly, carotid bruit Respiratory exam: Present: clear to auscultation bilaterally. Absent: accessory muscle use, chest wall tenderness, rales, rhonchi, wheezing. Cardiovascular exam: Present: regular rate and rhythm. Absent: gallop, JVD, rubs, murmur GI/Abdominal exam: Present: normal bowel sounds, soft. Absent: distended, firm , hernia, mass, tenderness. Extremities exam: Present: Normal Gait, No Clubbing, No Cyanosis, Upper Extr. Pulses 2+, Lower Extr. Pulses 2+, No edema. Capillary refill less than 3 seconds. Musculoskeletal: Present: No Fluid Collection, No Pain, Normal Range of Motion Back exam: Present: normal inspection. Absent: muscle spasm, vertebral tenderness Neurological exam: Present: awake, alert, oriented X3, Moves all extremities well without hemiparesis or paralysis. Grossly intact without resting or essential tremor Psychiatric exam: Present: normal affect, normal mood Skin exam: Present: normal color, warm, dry, intact. Absent: cyanosis, diaphoretic, rash, urticaria Cath site: Right wrist with bandaid intact. No bleeding, hematoma, or bruit. Radial pulse 3+. Result/EKG - Labs CBC & BMP: 01/31/17 05:14 01/31/17 05:14 Lab Results: I have reviewed the past 24 hour labs Labs: Laboratory Results - last 24 hr 01/30/17 01/30/17 01/31/17 15:20 21:09 03:37 WBC RBC Hgb Hct MCV MCH MCHC RDW Plt Count MPV Neut % (Auto) Lymph % (Auto) [place] % (Auto) Eos % (Auto) Baso % (Auto) Neut # (Auto) Lymph # (Auto) [place] # (Auto) Eos # (Auto) Baso # (Auto) Immature Gran % Nucleated RBC % Immature Gran # Nucleated RBCs # Immature Plt Fraction ABG pH 7.419 ABG pCO2 35.9 ABG pO2 101.0 H ABG HCO3 23.8 ABG Total CO2 19.9 L ABG O2 Saturation 97.7 ABG Base Excess -0.7 FiO2 21.00 Sodium Potassium Chloride Carbon Dioxide Anion Gap BUN Creatinine GFR Calculation BUN/Creatinine Ratio Glucose POC Glucose 161 H 117 H Calculated Osmolality Calcium Total Bilirubin AST ALT Alkaline Phosphatase Total Protein Albumin Globulin Albumin/Globulin Ratio Blood Type Antibody Screen Crossmatch 01/31/17 01/31/17 01/31/17 05:14 05:14 05:14 WBC 6.5 RBC 4.03 Hgb 13.7 L Hct 40.5 L MCV 100.5 MCH 34 MCHC 33.8 RDW 13.2 Plt Count 141 MPV 11.0 Neut % (Auto) 46.8 Lymph % (Auto) 38.5 [place] % (Auto) 9.6 Eos % (Auto) 4.0 Baso % (Auto) 0.8 Neut # (Auto) 3.1 Lymph # (Auto) 2.5 [place] # (Auto) 0.6 Eos # (Auto) 0.3 Baso # (Auto) 0.1 Immature Gran % 0.3 Nucleated RBC % 0.0 Immature Gran # 0.02 Nucleated RBCs # 0.00 Immature Plt Fraction 0.0 ABG pH ABG pCO2 ABG pO2 ABG HCO3 ABG Total CO2 ABG O2 Saturation ABG Base Excess FiO2 Sodium 141 141 Potassium 4.1 4.1 Chloride 109 H 109 H Carbon Dioxide 24 24 Anion Gap 12.1 12.1 BUN 19 H 19 H Creatinine 0.90 0.90 GFR Calculation 93 93 BUN/Creatinine Ratio 21.00 H 21.00 H Glucose 100 103 POC Glucose Calculated Osmolality 282.3 282.3 Calcium 8.3 L 8.5 Total Bilirubin 0.70 AST 25 ALT 35 Alkaline Phosphatase 87 Total Protein 6.2 L Albumin 3.3 L Globulin 2.9 Albumin/Globulin Ratio 1.1 Blood Type Antibody Screen Crossmatch 01/31/17 01/31/17 01/31/17 05:15 08:00 11:01 WBC RBC Hgb Hct MCV MCH MCHC RDW Plt Count MPV Neut % (Auto) Lymph % (Auto) [place] % (Auto) Eos % (Auto) Baso % (Auto) Neut # (Auto) Lymph # (Auto) [place] # (Auto) Eos # (Auto) Baso # (Auto) Immature Gran % Nucleated RBC % Immature Gran # Nucleated RBCs # Immature Plt Fraction ABG pH ABG pCO2 ABG pO2 ABG HCO3 ABG Total CO2 ABG O2 Saturation ABG Base Excess FiO2 Sodium Potassium Chloride Carbon Dioxide Anion Gap BUN Creatinine GFR Calculation BUN/Creatinine Ratio Glucose POC Glucose 99 153 H Calculated Osmolality Calcium Total Bilirubin AST ALT Alkaline Phosphatase Total Protein Albumin Globulin Albumin/Globulin Ratio Blood Type A POSITIVE Antibody Screen Negative Crossmatch See Detail 01/31/17 Unknown WBC RBC Hgb Hct MCV MCH MCHC RDW Plt Count MPV Neut % (Auto) Lymph % (Auto) [place] % (Auto) Eos % (Auto) Baso % (Auto) Neut # (Auto) Lymph # (Auto) [place] # (Auto) Eos # (Auto) Baso # (Auto) Immature Gran % Nucleated RBC % Immature Gran # Nucleated RBCs # Immature Plt Fraction ABG pH ABG pCO2 ABG pO2 ABG HCO3 ABG Total CO2 ABG O2 Saturation ABG Base Excess FiO2 Sodium Potassium Chloride Carbon Dioxide Anion Gap BUN Creatinine GFR Calculation BUN/Creatinine Ratio Glucose POC Glucose Calculated Osmolality Calcium Total Bilirubin AST ALT Alkaline Phosphatase Total Protein Albumin Globulin Albumin/Globulin Ratio Blood Type A POSITIVE Antibody Screen Crossmatch - EKG EKG results: interpreted by me, sinus rhythm EKG shows: bradycardia Quality Measures - VTE Contraindication to Pharmacological VTE Prophylaxis: Already on Theraputic Agent , No Prophylaxis Needed
[2017-01-31] MEDS ORDERED: CLORAZEPATE 3.75 MG TABLET PO PRN (16:07)
--- NOTE | 2017-01-31 18:18 | Sleep Medicine Consult ---
Assessment and Plan (1) Obstructive sleep apnea Status: Acute Assessment and plan: This patient has had difficult control obstructive sleep apnea in the past. He is undergoing bypass surgery tomorrow. We will follow-up with him postoperatively and schedule him for follow-up in the sleep clinic after discharge. We can utilize auto titration BiPAP postoperatively if needed. He has had significant difficulty with BiPAP in the past primarily related to treatment emergent central sleep apnea and I think he would be better served by reassessment with follow-up in sleep lab. Current Visit: Yes (2) Hypertension Status: Chronic Assessment and plan: The prevalence rate for obstructive sleep apnea patients with hypertension is 35 %. That rate can be as high as 80% in patients who require 4 or more medications for blood pressure control. Current Visit: Yes (3) Diabetes mellitus Status: Chronic Assessment and plan: The prevalence rate for obstructive sleep apnea in patients with type 2 diabetes can be as high as 86%. Those patients with moderate to severe obstructive sleep apnea are at a greater risk for diabetic nephropathy and neuropathy. Compliance with CPAP therapy for these patients can lead to improvement in glycemic control and improvement in insulin sensitivity. Current Visit: Yes History of Present Illness Chief complaint: Sleep apnea History of present illness: Mr. Matos is a 71 year old male known to me from previous sleep evaluation several years ago. He was found to have mild obstructive sleep apnea with a diagnostic AHI of 13.9. However, with CPAP titration, he developed treatment emergent central sleep apnea and ended up on BiPAP. He continued to do poorly on BiPAP and still had evidence of uncontrolled sleep apnea. It was recommended at that time that he come in for adaptive servo ventilation therapy but he did not keep those appointments and did not return phone calls. He has been admitted with chest pain and has been found to have multivessel coronary artery disease and is scheduled for bypass surgery tomorrow. He does continue to snore loudly and does have abnormal breathing. His notes the significance of his snoring and no longer sleeps in the same bedroom with him because of his snoring. He does still seem to be bothered with sleep and is willing to have his sleep apnea reevaluated and treated. Home Medications Medication Instructions Recorded Confirmed Type Aspirin 162.5 mg PO QAM 01/28/17 01/28/17 History Glimepiride [Glimepiride] 2 mg PO QAM 01/28/17 01/28/17 History Metoprolol Succinate Xl [Toprol Xl] 100 mg PO QAM 01/28/17 01/28/17 History Rosuvastatin Calcium [Rosuvastatin 10 mg PO QAM 01/28/17 01/28/17 History Calcium] Allergies Allergy/AdvReac Type Severity Reaction Status Date / Time No Known Allergies Allergy Verified 01/28/17 04:28 Review of systems: Otherwise unremarkable from sleep standpoint. Exam (Pulmonay) H&P - Constitutional Vitals: Period Temp Pulse Resp BP Sys/Espinal Pulse Ox Last 24 Hr 97.1 F-98.2 F 46-60 16-20 104-155/57-79 95-99 Exam: He is alert and responsive in no acute distress. Pupils equal round reactive to light and accommodation. Extraocular movements intact. Oropharynx with a class III Mallampati exam. Neck supple without adenopathy or thyromegaly. No supraclavicular adenopathy is noted. Chest with symmetrical breath sounds without focal wheeze, rhonchi, or rales. Cardiac exam reveals regular rhythm without murmur or gallop. Abdomen soft nontender without palpable hepatosplenomegaly or mass. Extremities without increased clubbing, cyanosis, or edema. Neurologically, he is grossly intact. He moves all extremities with good strength and ambulates with a normal gait. Medical,Surgical,& Family Hx - Medical History Cardio: History of: Hypertension HEENT: History of: Ear Problem (tinnitus) Endocrine: History of: Dyslipidemia, Endocrine Problems (borderline diabetic) - Family History Family History: Reports;: Family Diabetes, Family Hypertension, Family Stroke - Social History Smoking Status: Never smoker Frequency of Alcohol Use: None Type of Drug Use: None Results - Labs CBC & BMP: 01/31/17 05:14 01/31/17 05:14 Lab Results: I have reviewed the past 24 hour labs Quality Measures - VTE Contraindication to Pharmacological VTE Prophylaxis: Already on Theraputic Agent , No Prophylaxis Needed
[2017-01-31] MEDS ORDERED: ROSUVASTATIN 20 MG TABLET PO SCH (21:00)
[2017-01-31] MEDS: CAPTOPRIL 6.25 MG TABLET PO SCH (21:28)
[2017-01-31] MEDS: METOPROLOL TARTRATE 25 MG TABLET PO SCH (21:28)
[2017-02-01] MEDS ORDERED: PAPAVERINE 60 MG/2 ML VIAL ONE (04:49)
[2017-02-01] MEDS ORDERED: VANCOMYCIN 1,000 MG VIAL ONE (04:49)
[2017-02-01] MEDS ORDERED: LORazepam 1 MG TABLET PO ONE (05:30)
[2017-02-01] MEDS: FAMOTIDINE 20 MG TABLET PO SCH ×2 (05:47→09:26)
[2017-02-01] MEDS: METOPROLOL TARTRATE 25 MG TABLET PO SCH ×2 (05:48→09:25)
[2017-02-01] MEDS ORDERED: SODIUM CHLORIDE 0.9% 1,000 ML IV SCH (06:00)
[2017-02-01] MEDS ORDERED: CEFUROXIME INJ 1,500 MG in SODIUM CHLORIDE 0.9% 100 ML IV ONE (06:00)
[2017-02-01] MEDS ORDERED: PHENYLEPHRINE 1 MG/10 ML SYRINGE IV ONE (06:45)
[2017-02-01] MEDS ORDERED: MINERAL OIL/PETROLATUM OPH OINT 3.5 GM TUBE ONE (06:45)
[2017-02-01] MEDS ORDERED: NITROGLYCERIN 50 MG/250 ML BOTTLE IV ONE (06:45)
[2017-02-01] MEDS ORDERED: PHENYLEPHRINE 20 MG/250 ML PREMIX IV ONE (06:45)
[2017-02-01] MEDS ORDERED: AMINOCAPROIC ACID 5,000 MG/20 ML VIAL IV ONE (06:45)
[2017-02-01] MEDS ORDERED: HEPARIN/NACL 0.9% 2 UNITS/ML 500 ML IV ONE (06:45)
[2017-02-01] MEDS ORDERED: ETOMIDATE 20 MG/10 ML VIAL IV ONE (06:45)
[2017-02-01] MEDS ORDERED: LIDOCAINE 2% 5 ML VIAL ONE (06:45)
[2017-02-01] MEDS ORDERED: ROCURONIUM 100 MG/10 ML VIAL IV ONE (06:45)
[2017-02-01 07:56] LABS: ABG Base Excess -1.5 MMOL/L (-2.5-2.5); ABG HCO3 23.2 MMOL/L (20-26); ABG Oxygen Saturation 99.4 % (95-100); ABG PCO2 32.1 MM HG (35-48); ABG PH 7.438 (7.35-7.45); ABG TCO2 18.6 MMOL/L (23-27); Glucose Heart Surgery 128 MG/DL (74-106); Hematocrit Heart Surgery 42.7 PERCENT (42-52); Hemoglobin Heart Surgery 13.9 G/DL (14.0-18.0); Ionized Calcium Arterial 1.13 MMOL/L (1.21-1.46); PCO2 Patient Temp Arterial 32.1 MMHG; PH Patient Temp Arterial 7.438; Patient Temperature 37 CELCIUS; Potassium Heart/CVR 3.6 MMOL/L (3.5-5.1); Sodium Heart/CVR 141 MMOL/L (135-145)
[2017-02-01 08:01] LABS: Apearance,Urine CLEAR (Clear); Bilirubin,Urine Negative (Negative); Blood, Urine Negative (Negative); Glucose,Urine (UA) Negative (Negative); Hyaline Casts,Urine 3 /LPF (0-3); Ketones,Urine 20 mg/dL (Negative); Mucus,Urine Occasional /LPF (Occasional); Nitrite,Urine Negative (Negative); Protein,Urine Negative; RBC,Urine <1 /HPF (0-4); Squamous Epithelial Cell,Urine Occasional /HPF (0-10); Urine Color Yellow (Yellow); Urine Specific Gravity 1.021 (1.001-1.035); Urine Urobilinogen < 2.0 EU/DL (0.2-1.0); WBC,Urine <1 /HPF (0-6)
[2017-02-01] MEDS ORDERED: PHENYLEPHRINE DRIP 40 MG/250 ML PREMIX IV ONE (08:57)
[2017-02-01] MEDS ORDERED: POTASSIUM CHLORIDE RIDER 100 ML IV ONE (08:57)
[2017-02-01] MEDS ORDERED: CALCIUM CHLORIDE 1,000 MG/10 ML SYRINGE IV ONE (08:57)
[2017-02-01] MEDS ORDERED: NITROPRUSSIDE 50 MG/2 ML VIAL ONE (08:57)
[2017-02-01] MEDS ORDERED: SODIUM BICARBONATE 50 MEQ/50 ML SYRINGE IV ONE ×2 (08:59→12:26)
[2017-02-01] MEDS ORDERED: ALBUMIN 5% 12.5 GM/250 ML VIAL IV ONE (08:59)
[2017-02-01] MEDS: INSULIN LISPRO 100 UNIT/ML SUBCUT SCH ×2 (09:24→11:40)
[2017-02-01] MEDS: ASPIRIN EC 325 MG TABLET PO SCH (09:25)
[2017-02-01] MEDS: GLIMEPIRIDE 2 MG TABLET PO SCH (09:25)
[2017-02-01] MEDS: CAPTOPRIL 6.25 MG TABLET PO SCH (09:25)
[2017-02-01] MEDS: CHLORHEXIDINE 4% SOLN 118 ML BOTTLE TOP SCH (09:25)
[2017-02-01] MEDS: CHLORHEXIDINE 0.12% ORAL RINSE 60 ML BOTTLE SWISH/SPIT SCH ×2 (09:26→20:21)
[2017-02-01 10:42] LABS: Hematocrit Heart Surgery 27.6 PERCENT (42-52); Hemoglobin Heart Surgery 8.9 G/DL (14.0-18.0); PCO2 Patient Temp Venous 36.5 MM HG; PH Patient Temp Venous 7.421; PO2 Patient Temp Venous 39.8 MM HG; Potassium Heart/CVR 5.1 MMOL/L (3.5-5.1); VBG Base Excess -0.4 MEQ/L (0-4); VBG HCO3 23.9 MEQ/L (24-28); VBG Oxygen Saturation 84.3 %; VBG PCO2 42.2 MMHG (41-51); VBG PH 7.377; VBG PO2 48.9 MMHG (17-40)
[2017-02-01 11:17] LABS: Hematocrit Heart Surgery 28.3 PERCENT (42-52); Hemoglobin Heart Surgery 9.1 G/DL (14.0-18.0); PCO2 Patient Temp Venous 32.7 MM HG; PH Patient Temp Venous 7.446; PO2 Patient Temp Venous 39.7 MM HG; Potassium Heart/CVR 4.1 MMOL/L (3.5-5.1); VBG HCO3 23.4 MEQ/L (24-28); VBG Oxygen Saturation 84.7 %; VBG PCO2 37.8 MMHG (41-51); VBG PH 7.402; VBG PO2 48.8 MMHG (17-40)
[2017-02-01 12:23] LABS: ABG Base Excess -2.4 MMOL/L (-2.5-2.5); ABG HCO3 22.4 MMOL/L (20-26); ABG Oxygen Saturation 98.4 % (95-100); ABG PCO2 44.7 MM HG (35-48); ABG PH 7.331 (7.35-7.45); ABG TCO2 21.5 MMOL/L (23-27); Glucose Heart Surgery 225 MG/DL (74-106); Hematocrit Heart Surgery 32.7 PERCENT (42-52); Hemoglobin Heart Surgery 10.6 G/DL (14.0-18.0); Ionized Calcium Arterial 1.24 MMOL/L (1.21-1.46); PCO2 Patient Temp Arterial 44.7 MMHG; PH Patient Temp Arterial 7.331; Patient Temperature 37 CELCIUS; Potassium Heart/CVR 3.6 MMOL/L (3.5-5.1); Sodium Heart/CVR 142 MMOL/L (135-145)
[2017-02-01] MEDS ORDERED: ALBUMIN 25% 25 GM/100 ML VIAL IV ONE (12:26)
[2017-02-01] MEDS ORDERED: DEXTROSE 5% KCL 20 MEQ 20 MEQ/1,000 ML BAG IV ONE (12:26)
[2017-02-01] MEDS ORDERED: PROTAMINE SULFATE 250 MG/25 ML VIAL IV ONE (12:26)
[2017-02-01] MEDS ORDERED: MANNITOL 100 GM/500 ML BAG IV ONE (12:26)
[2017-02-01] MEDS ORDERED: PHENYLEPHRINE DRIP 20 MG/250 ML PREMIX IV ONE (12:26)
[2017-02-01] MEDS ORDERED: MAGNESIUM SULFATE 1 GM/2 ML VIAL ONE (12:26)
[2017-02-01] MEDS ORDERED: HEPARIN 10,000 UNIT/10 ML VIAL ONE (12:27)
[2017-02-01] MEDS ORDERED: POTASSIUM CHLORIDE 20 MEQ/10 ML VIAL ONE (12:27)
[2017-02-01] MEDS ORDERED: FUROSEMIDE 20 MG/2 ML VIAL ONE (12:27)
[2017-02-01] MEDS ORDERED: methylPREDNISolone SOD SUC 1,000 MG/8 ML VIAL ONE (12:27)
[2017-02-01] MEDS ORDERED: INSULIN REGULAR DRIP 100 ML IV ONE (12:35)
[2017-02-01] MEDS ORDERED: PROTAMINE SULFATE 50 MG/5 ML VIAL IV ONE ×2 (13:04→13:40)
--- NOTE | 2017-02-01 13:05 | Operative Note ---
Date of procedure: 02/01/17 Pre-op diagnosis: Coronary artery disease Post-op diagnosis: same Procedure: Coronary bypass grafting 3 with a left internal mammary artery graft to the diagonal coronary artery and saphenous vein graft to the obtuse marginal and right posterior descending coronary arteries. Findings: Patient is a 71-year-old man who presented with three-vessel coronary disease including left main coronary involvement. The time of surgery left ventricular function was noted to be normal. Saphenous vein grafts were placed to the obtuse marginal and to the right posterior descending coronary arteries. The left internal mammary artery was grafted to what I think was a diagonal coronary artery. He was the only vessel I could find on the anterior lateral surface of the heart and it appeared to be more lateral than the normal LAD position. However I was unable to find a vessel in the normal position of the anterior descending coronary artery. All of the distal vessels were of adequate size and free of disease at the site of anastomosis. Of note is that the saphenous vein in the lower legs was suboptimal for grafting. Accordingly vein was taken from the left thigh. Procedure: Patient brought to the operating room placed on the operating table in supine position. After satisfactory induction of general anesthesia the chest abdomen and legs were prepped and draped in sterile fashion. The greater saphenous vein was harvested as noted above from the left thigh. There was prepared as an arterial graft. Incisions in the leg were closed with 3-0 subcutaneous Monocryl and skin katelynn in the skin. Standard sternotomy incision was made and the sternum was divided and the heart suspended in a pericardial cradle. Left internal mammary artery was dissected free and prepared as an arterial graft. Patient was prepared for cardiopulmonary bypass with systemic heparinization and cannulation of the ascending aorta and right atrium. Cardiopulmonary bypass was begun and the aorta was crossclamped and the heart arrested with cardioplegia solution injected into the aortic root. Heart was protected during the period of crossclamping with topical saline slush. Distal anastomoses were constructed as noted above and then the aorta was unclamped reestablishing cardiac action. Proximal anastomoses were constructed between the ascending aorta and influenza of the saphenous vein grafts. Following this the patient was weaned from cardiopulmonary bypass without difficulty and heparin effect was reversed with protamine. Operative field was inspected for hemostasis and this was considered adequate the incision was closed with interrupted stainless steel wire and the sternum and 0 Monocryl on the presternal fascia. The skin was closed with 3-0 subcuticular Monocryl. Chest tubes were left in the left hemithorax in the right hemithorax in the anterior mediastinum and these were all brought out through separate stab incisions. Sterile dressings were applied and the patient was returned to intensive care in satisfactory condition. Anesthesia: SHERIF Surgeon / Physician: Jay Rose Estimated blood loss: other (Unable to determine because of cardiopulmonary bypass) Condition: stable Disposition: ICU Results - Labs CBC & BMP: 02/01/17 12:12 01/31/17 05:14 Discharge Plan - Discharge Medications No Action Rosuvastatin Calcium [Rosuvastatin Calcium] 10 mg PO QAM Aspirin 162.5 mg PO QAM Metoprolol Succinate Xl [Toprol Xl] 100 mg PO QAM Glimepiride [Glimepiride] 2 mg PO QAM - Follow Up or Referral - Forms/Instructions
[2017-02-01] MEDS ORDERED: ONDANSETRON 4 MG/2 ML VIAL IV PRN (13:11)
[2017-02-01] MEDS ORDERED: MAGNESIUM SULF RIDER 4 GM in PREMIX 1 EACH IV PRN (13:11)
[2017-02-01] MEDS ORDERED: DEXTROSE 50% 25 GM/50 ML SYRINGE IV PRN ×2 (13:11)
[2017-02-01] MEDS ORDERED: POTASSIUM CHLORIDE RIDER 10 MEQ in PREMIX 1 EACH IV PRN (13:11)
[2017-02-01] MEDS ORDERED: INSULIN REGULAR 100 UNIT/ML IV PRN (13:11)
[2017-02-01] MEDS ORDERED: LACTATED RINGERS 250 ML IV PRN (13:11)
[2017-02-01] MEDS ORDERED: PHENYLEPHRINE DRIP 40 MG/250 ML PREMIX IV PRN (13:11)
[2017-02-01] MEDS ORDERED: VECURONIUM 10 MG VIAL IV PRN ×2 (13:11)
[2017-02-01] MEDS ORDERED: MAGNESIUM SULF RIDER 2 GM in PREMIX 1 EACH IV PRN (13:11)
[2017-02-01] MEDS ORDERED: CALCIUM CHLORIDE 1,000 MG/10 ML SYRINGE IV PRN (13:11)
[2017-02-01] MEDS ORDERED: INSULIN REGULAR 100 UNIT/ML IV ONE (13:11)
[2017-02-01] MEDS ORDERED: ACETAMINOPHEN 650 MG SUPP RECTAL PRN (13:11)
[2017-02-01] MEDS ORDERED: MIDAZOLAM 10 MG/2 ML VIAL IV PRN (13:11)
[2017-02-01] MEDS ORDERED: NITROPRUSSIDE 100 MG in DEXTROSE 5% 250 ML IV PRN (13:11)
[2017-02-01] MEDS ORDERED: SEVOFLURANE 1 UNIT/15 MINUTE INH ONE (13:13)
[2017-02-01] MEDS ORDERED: SUFentanil 250 MCG/5 ML AMP ONE (13:13)
[2017-02-01] MEDS ORDERED: ePHEDrine 50 MG/ML AMP ONE (13:14)
[2017-02-01] MEDS ORDERED: SODIUM CHLORIDE 0.9% 250 ML IV ONE (13:14)
[2017-02-01] MEDS ORDERED: SODIUM CHLORIDE 0.9% 1,000 ML IV ONE (13:14)
[2017-02-01] MEDS: INSULIN REGULAR DRIP 100 ML IV SCH (13:15)
[2017-02-01 13:24] LABS: ABG Base Excess -1.7 MMOL/L (-2.5-2.5); ABG HCO3 20.7 MMOL/L (20-26); ABG Oxygen Saturation 97.7 % (95-100); ABG PCO2 28.4 MM HG (35-48); ABG TCO2 21.5 MMOL/L (23-27); Glucose Heart Surgery 202 MG/DL (74-106); Potassium Heart/CVR 3.9 MMOL/L (3.5-5.1)
[2017-02-01] MEDS: SODIUM CHLORIDE 0.45% 1,000 ML IV SCH ×2 (13:25→13:26)
[2017-02-01 13:28] LABS: Basophils % 0.2 % (0.0-0.8); Eosinophils % 0.3 % (0.00-10.9); Hematocrit 35.7 VOL% (42.0-52.0); Hemoglobin 12.5 GM/DL (14.0-18.0); Immature Granulocytes % 0.4 %; Immature Granulocytes Absolute 0.04 #; Lymphocytes % 9.2 % (21.2-54.2); Mean Corpuscular Hemoglobin 35 PG (27-34); Mean Platelet Volume 11.2 FL (9.6-12.0); Monocytes # 0.3 10*3/uL (0.11-0.8); Monocytes % 2.5 % (1.7-12.7); Neutrophils # 9.1 10*3/uL (1.4-7.4); Neutrophils % 87.4 % (38.7-73.9); Platelet Count 110 T/CUMM (130-400); Red Blood Count 3.57 MC/CUMM (3.8-5.5); Red Cell Distribution Width 13.2 % (9.3-17.3); White Blood Count 10.4 T/CUMM (4-12)
[2017-02-01] MEDS: MIDAZOLAM 2 MG/2 ML VIAL IV PRN (13:40)
[2017-02-01 13:46] LABS: INR 1.3; PT Patient Result 13.7 SECS; Partial Thromboplastin Time 28.5 SECS (0-40)
--- NOTE | 2017-02-01 13:49 | Hospitalist Progress Note ---
Assessment and Plan (1) Chest pain Status: Acute Assessment and plan: The patient had bypass surgery today. Dr. Rose says ventricular function was good. We anticipate a routine postoperative recovery Current Visit: Yes (2) Hypertension Status: Chronic Current Visit: Yes (3) Diabetes mellitus Status: Chronic Current Visit: Yes Hospitalist: Subjective Interval history: I evaluated Mr. Matos in the cardiovascular intensive care unit. I coordinated care with Dr. Rose. The patient tolerated bypass surgery well. Exam - Constitutional Vitals: Period Temp Pulse Resp BP Sys/Espinal Pulse Ox Last 24 Hr 97.2 F-98.0 F 55-64 10-20 109-154/66-72 96-98 General appearance: mild distress - Respiratory Respiratory exam: Present: clear to auscultation bilaterally - Cardiovascular Cardiovascular exam: Present: regular rate and rhythm - GI/Abdominal GI/Abdominal exam: Present: hypoactive bowel sounds Results - Labs CBC & BMP: 02/01/17 13:10 01/31/17 05:14 Lab Results: I have reviewed the past 24 hour labs Quality Measures - VTE Contraindication to Pharmacological VTE Prophylaxis: Already on Theraputic Agent , No Prophylaxis Needed
[2017-02-01 13:57] LABS: Albumin 3.4 G/DL (3.4-5.0); Bilirubin,Total 1.7 MG/DL (0.2-1.0); Calcium 8.5 MG/DL (8.5-10.1); Magnesium 2.4 MG/DL (1.8-2.4); Osmolality,Calculated 300.4 MOS/KG (273-304); Potassium 4.2 MMOL/L (3.5-5.1); Total Protein 5.7 G/DL (6.4-8.3)
[2017-02-01 13:59] LABS: CKMB % 7.4 %
[2017-02-01 14:02] LABS: Troponin I Only 7.79 NG/ML (0.00-0.045)
--- NOTE | 2017-02-01 14:08 | Cardiology Progress Note ---
Assessment and Plan - Time spent with patient Time spent with patient: Less than 30 minutes (1) Coronary artery disease Status: Acute Assessment and plan: See plan of care listed below. Current Visit: Yes (2) Hypertension Status: Chronic Assessment and plan: See plan of care listed below. Current Visit: Yes (3) Diabetes mellitus Status: Chronic Assessment and plan: See plan of care listed below. Current Visit: Yes (4) Hyperlipidemia Status: Chronic Assessment and plan: See plan of care listed below. Current Visit: Yes Cardiology - PN: Subj Interval history: [employer]: new to Dr. Cardona SUMMARY: Mr. Matos is a 71-year-old WM who is known to cardiology. He is admitted to the hospital with sudden onset chest pain which woke him up from sleep, not typical for angina. His EKG and cardiac biomarkers have been unremarkable. He is quite active and participates in multiple sports activities without exertional issues. He had an abnormal stress test and underwent cardiac catheterization which revealed severe 3 vessel coronary artery disease. He was referred to Dr. Rose for CABG and is planned for surgery on 02/01/17. 2016: Mr. Matos is seen post operatively from CABG. He is currently stable, requiring low doses of vasopressors. Mediastinal chest tubes are intact. He is currently fairly stable. We will continue to follow post operatively. Once able, we will resume his metoprolol, captopril, and crestor. Dr. Ingram to follow with further plan and addendum. IMPRESSION/PLAN: 1. CORONARY ARTERY DISEASE: Patient is post operative from CABG x3 with HESS to diagonal, SVG to obtuse marginal, and SVG to right PDA. 2. HYPERTENSION: Continue Toprol-XL once able to tolerate. Currently requiring vasopressors. 3. DIABETES MELLITUS: He is on Accu-Cheks with insulin infusion. 4. HYPERLIPIDEMIA: LDL 96. Continue Crestor once able. Exam (Progress Note) - Constitutional Vitals: Period Temp Pulse Resp BP Sys/Espinal Pulse Ox Last 24 Hr 97.2 F-98.0 F 55-64 10-20 109-154/66-72 96-98 Exam: General appearance: Orally intubated and on ventilator. Normal weight, no acute distress. Head exam: Present: normal inspection, normocephalic, atraumatic. Absent: hematoma, laceration Eye exam: Present: EOMI. Absent: conjunctival injection, nystagmus, periorbital swelling, scleral icterus, laceration to eyelids Pupils: Present: PERRL. Absent: constricted, dilated, fixed, irregular, unequal ENT exam: Present: Orally intubated, normal external ear exam Neck exam: Present: normal inspection. Absent: lymphadenopathy, meningismus, tenderness, thyromegaly Respiratory exam: Present: Mechanically ventilated breath sounds. Absent: accessory muscle use Cardiovascular exam: Present: regular rate and rhythm. Absent: carotid bruit, gallop, JVD, rubs, murmur GI/Abdominal exam: Present: absent, soft. Absent: distended, firm, guarding, hernia, mass, tenderness, rebound. Extremities exam: Present: normal inspection, normal capillary refill. Upper extremity pulses 2+. Lower extremity pulses 2+. Absent: calf tenderness, edema Back exam: Present: Unable to examine due to habitus. Post op on mechanical ventilator. Neurological exam: Present: Limited due to habitus (on ventilator). No resting or essential tremor. Psychiatric exam: Present: Unable to adequately assess due to patient being post op from CABG and on mechanical ventilation. Skin exam: Present: normal color, warm, dry, intact. Absent: cyanosis, diaphoretic, rash, urticaria Result/EKG - Labs CBC & BMP: 02/01/17 13:10 02/01/17 13:10 Lab Results: I have reviewed the past 24 hour labs Labs: Laboratory Results - last 24 hr 01/31/17 01/31/17 01/31/17 05:15 15:21 19:28 WBC RBC Hgb Hct MCV MCH MCHC RDW Plt Count MPV Neut % (Auto) Lymph % (Auto) [place] % (Auto) Eos % (Auto) Baso % (Auto) Neut # (Auto) Lymph # (Auto) [place] # (Auto) Eos # (Auto) Baso # (Auto) Immature Gran % Nucleated RBC % Immature Gran # Nucleated RBCs # Immature Plt Fraction INR PT Patient/Control Mix Circ Anticoag PTT Patient Temperature ABG pH ABG pH at Pt Temp ABG pCO2 ABG pCO2 at Pt Temp ABG pO2 ABG pO2 at Pt Temp ABG HCO3 ABG Total CO2 ABG O2 Saturation ABG Base Excess ABG Sodium VBG pH VBG pCO2 VBG pO2 VBG HCO3 VBG Total CO2 VBG O2 Saturation VBG Base Excess Hemoglobin Hematocrit Potassium Glucose Ionized Calcium FiO2 Sodium Chloride Carbon Dioxide Anion Gap BUN Creatinine GFR Calculation BUN/Creatinine Ratio POC Glucose 117 H 196 H Calculated Osmolality Calcium Venous Ioniz Calcium Magnesium Total Bilirubin AST ALT Alkaline Phosphatase Total Creatine Kinase CK-MB (CK-2) CK and CKMB Interp Troponin I Total Protein Albumin Globulin Albumin/Globulin Ratio Urine Color Urine Appearance Urine pH Ur Specific [place] Urine Protein Urine Glucose (UA) Urine Ketones Urine Blood Urine Nitrate Urine Bilirubin Urine Urobilinogen Urine Leukocytes Urine RBC Urine WBC Ur Squamous Epith Cells Hyaline Casts Urine Mucus Ur Culture Indicated? Blood Type A POSITIVE Antibody Screen Negative Crossmatch See Detail 02/01/17 02/01/17 02/01/17 04:35 07:51 07:51 WBC RBC Hgb Hct MCV MCH MCHC RDW Plt Count 83 L D MPV Neut % (Auto) Lymph % (Auto) [place] % (Auto) Eos % (Auto) Baso % (Auto) Neut # (Auto) Lymph # (Auto) [place] # (Auto) Eos # (Auto) Baso # (Auto) Immature Gran % Nucleated RBC % Immature Gran # Nucleated RBCs # Immature Plt Fraction INR PT Patient/Control Mix Circ Anticoag PTT Patient Temperature 37 ABG pH 7.438 ABG pH at Pt Temp 7.438 ABG pCO2 32.1 L ABG pCO2 at Pt Temp 32.1 ABG pO2 267.0 H ABG pO2 at Pt Temp 267.0 ABG HCO3 23.2 ABG Total CO2 18.6 L ABG O2 Saturation 99.4 ABG Base Excess -1.5 ABG Sodium 141 VBG pH VBG pCO2 VBG pO2 VBG HCO3 VBG Total CO2 VBG O2 Saturation VBG Base Excess Hemoglobin 13.9 L Hematocrit 42.7 Potassium 3.6 Glucose 128 H Ionized Calcium 1.13 L FiO2 Sodium Chloride Carbon Dioxide Anion Gap BUN Creatinine GFR Calculation BUN/Creatinine Ratio POC Glucose 120 H Calculated Osmolality Calcium Venous Ioniz Calcium Magnesium Total Bilirubin AST ALT Alkaline Phosphatase Total Creatine Kinase CK-MB (CK-2) CK and CKMB Interp Troponin I Total Protein Albumin Globulin Albumin/Globulin Ratio Urine Color Urine Appearance Urine pH Ur Specific [place] Urine Protein Urine Glucose (UA) Urine Ketones Urine Blood Urine Nitrate Urine Bilirubin Urine Urobilinogen Urine Leukocytes Urine RBC Urine WBC Ur Squamous Epith Cells Hyaline Casts Urine Mucus Ur Culture Indicated? Blood Type Antibody Screen Crossmatch 02/01/17 02/01/17 02/01/17 07:54 10:40 11:10 WBC RBC Hgb Hct MCV MCH MCHC RDW Plt Count MPV Neut % (Auto) Lymph % (Auto) [place] % (Auto) Eos % (Auto) Baso % (Auto) Neut # (Auto) Lymph # (Auto) [place] # (Auto) Eos # (Auto) Baso # (Auto) Immature Gran % Nucleated RBC % Immature Gran # Nucleated RBCs # Immature Plt Fraction INR PT Patient/Control Mix Circ Anticoag PTT Patient Temperature 34 34 ABG pH ABG pH at Pt Temp 7.421 7.446 ABG pCO2 ABG pCO2 at Pt Temp 36.5 32.7 ABG pO2 ABG pO2 at Pt Temp 39.8 39.7 ABG HCO3 ABG Total CO2 ABG O2 Saturation ABG Base Excess ABG Sodium 136 139 VBG pH 7.377 7.402 VBG pCO2 42.2 37.8 L VBG pO2 48.9 H 48.8 H VBG HCO3 23.9 L 23.4 L VBG Total CO2 23.0 21.7 VBG O2 Saturation 84.3 84.7 VBG Base Excess -0.4 L -1.0 L Hemoglobin 8.9 L D 9.1 L Hematocrit 27.6 L 28.3 L Potassium 5.1 4.1 Glucose 357 H 288 H Ionized Calcium FiO2 80.00 80.00 Sodium Chloride Carbon Dioxide Anion Gap BUN Creatinine GFR Calculation BUN/Creatinine Ratio POC Glucose Calculated Osmolality Calcium Venous Ioniz Calcium 0.90 L 0.94 L Magnesium Total Bilirubin AST ALT Alkaline Phosphatase Total Creatine Kinase CK-MB (CK-2) CK and CKMB Interp Troponin I Total Protein Albumin Globulin Albumin/Globulin Ratio Urine Color Yellow Urine Appearance Clear Urine pH 5.0 Ur Specific [place] 1.021 Urine Protein Negative Urine Glucose (UA) Negative Urine Ketones 20 Urine Blood Negative Urine Nitrate Negative Urine Bilirubin Negative Urine Urobilinogen < 2.0 H Urine Leukocytes Negative Urine RBC <1 Urine WBC <1 Ur Squamous Epith Cells Occasional Hyaline Casts 3 Urine Mucus Occasional Ur Culture Indicated? Not indicated Blood Type Antibody Screen Crossmatch 02/01/17 02/01/17 02/01/17 12:12 12:20 13:10 WBC 10.4 D RBC 3.57 L Hgb 12.5 L Hct 35.7 L MCV 100.0 MCH 35 H MCHC 35.0 RDW 13.2 Plt Count 87 L 110 L D MPV 11.2 Neut % (Auto) 87.4 H Lymph % (Auto) 9.2 L [place] % (Auto) 2.5 Eos % (Auto) 0.3 Baso % (Auto) 0.2 Neut # (Auto) 9.1 H Lymph # (Auto) 1.0 L [place] # (Auto) 0.3 Eos # (Auto) 0.0 Baso # (Auto) 0.0 Immature Gran % 0.4 Nucleated RBC % 0.0 Immature Gran # 0.04 Nucleated RBCs # 0.00 Immature Plt Fraction 0.0 INR PT Patient/Control Mix Circ Anticoag PTT Patient Temperature 37 ABG pH 7.331 L ABG pH at Pt Temp 7.331 ABG pCO2 44.7 ABG pCO2 at Pt Temp 44.7 ABG pO2 133.0 H ABG pO2 at Pt Temp 133.0 ABG HCO3 22.4 ABG Total CO2 21.5 L ABG O2 Saturation 98.4 ABG Base Excess -2.4 ABG Sodium 142 VBG pH VBG pCO2 VBG pO2 VBG HCO3 VBG Total CO2 VBG O2 Saturation VBG Base Excess Hemoglobin 10.6 L Hematocrit 32.7 L Potassium 3.6 Glucose 225 H Ionized Calcium 1.24 FiO2 Sodium Chloride Carbon Dioxide Anion Gap BUN Creatinine GFR Calculation BUN/Creatinine Ratio POC Glucose Calculated Osmolality Calcium Venous Ioniz Calcium Magnesium Total Bilirubin AST ALT Alkaline Phosphatase Total Creatine Kinase CK-MB (CK-2) CK and CKMB Interp Troponin I Total Protein Albumin Globulin Albumin/Globulin Ratio Urine Color Urine Appearance Urine pH Ur Specific [place] Urine Protein Urine Glucose (UA) Urine Ketones Urine Blood Urine Nitrate Urine Bilirubin Urine Urobilinogen Urine Leukocytes Urine RBC Urine WBC Ur Squamous Epith Cells Hyaline Casts Urine Mucus Ur Culture Indicated? Blood Type Antibody Screen Crossmatch 02/01/17 02/01/17 02/01/17 13:10 13:10 13:10 WBC RBC Hgb Hct MCV MCH MCHC RDW Plt Count MPV Neut % (Auto) Lymph % (Auto) [place] % (Auto) Eos % (Auto) Baso % (Auto) Neut # (Auto) Lymph # (Auto) [place] # (Auto) Eos # (Auto) Baso # (Auto) Immature Gran % Nucleated RBC % Immature Gran # Nucleated RBCs # Immature Plt Fraction INR 1.3 PT Patient/Control Mix 13.7 D Circ Anticoag PTT 28.5 Patient Temperature ABG pH ABG pH at Pt Temp ABG pCO2 ABG pCO2 at Pt Temp ABG pO2 ABG pO2 at Pt Temp ABG HCO3 ABG Total CO2 ABG O2 Saturation ABG Base Excess ABG Sodium VBG pH VBG pCO2 VBG pO2 VBG HCO3 VBG Total CO2 VBG O2 Saturation VBG Base Excess Hemoglobin Hematocrit Potassium 4.2 Glucose 220 H Ionized Calcium FiO2 Sodium 147 H Chloride 113 H Carbon Dioxide 24 Anion Gap 14.2 BUN 17 Creatinine 1.20 GFR Calculation 65 BUN/Creatinine Ratio 14.00 POC Glucose Calculated Osmolality 300.4 Calcium 8.5 Venous Ioniz Calcium Magnesium 2.4 Total Bilirubin 1.70 H AST 41 H ALT 29 Alkaline Phosphatase 74 Total Creatine Kinase 371 H CK-MB (CK-2) 27.6 H CK and CKMB Interp 7.4 Troponin I 7.790 H Total Protein 5.7 L Albumin 3.4 Globulin 2.3 Albumin/Globulin Ratio 1.4 Urine Color Urine Appearance Urine pH Ur Specific [place] Urine Protein Urine Glucose (UA) Urine Ketones Urine Blood Urine Nitrate Urine Bilirubin Urine Urobilinogen Urine Leukocytes Urine RBC Urine WBC Ur Squamous Epith Cells Hyaline Casts Urine Mucus Ur Culture Indicated? Blood Type Antibody Screen Crossmatch 02/01/17 13:11 WBC RBC Hgb Hct MCV MCH MCHC RDW Plt Count MPV Neut % (Auto) Lymph % (Auto) [place] % (Auto) Eos % (Auto) Baso % (Auto) Neut # (Auto) Lymph # (Auto) [place] # (Auto) Eos # (Auto) Baso # (Auto) Immature Gran % Nucleated RBC % Immature Gran # Nucleated RBCs # Immature Plt Fraction INR PT Patient/Control Mix Circ Anticoag PTT Patient Temperature ABG pH 7.480 H ABG pH at Pt Temp ABG pCO2 28.4 L ABG pCO2 at Pt Temp ABG pO2 97.0 H ABG pO2 at Pt Temp ABG HCO3 20.7 ABG Total CO2 21.5 L ABG O2 Saturation 97.7 ABG Base Excess -1.7 ABG Sodium VBG pH VBG pCO2 VBG pO2 VBG HCO3 VBG Total CO2 VBG O2 Saturation VBG Base Excess Hemoglobin 13.0 L Hematocrit 38.0 L Potassium 3.9 Glucose 202 H Ionized Calcium FiO2 Sodium Chloride Carbon Dioxide Anion Gap BUN Creatinine GFR Calculation BUN/Creatinine Ratio POC Glucose Calculated Osmolality Calcium Venous Ioniz Calcium Magnesium Total Bilirubin AST ALT Alkaline Phosphatase Total Creatine Kinase CK-MB (CK-2) CK and CKMB Interp Troponin I Total Protein Albumin Globulin Albumin/Globulin Ratio Urine Color Urine Appearance Urine pH Ur Specific [place] Urine Protein Urine Glucose (UA) Urine Ketones Urine Blood Urine Nitrate Urine Bilirubin Urine Urobilinogen Urine Leukocytes Urine RBC Urine WBC Ur Squamous Epith Cells Hyaline Casts Urine Mucus Ur Culture Indicated? Blood Type Antibody Screen Crossmatch - EKG EKG results: interpreted by me, sinus rhythm Quality Measures - VTE Contraindication to Pharmacological VTE Prophylaxis: Already on Theraputic Agent , No Prophylaxis Needed
[2017-02-01] MEDS: KETOROLAC 30 MG/1 ML VIAL IV SCH ×2 (14:11→19:35)
[2017-02-01] MEDS: ALBUMIN 5% 12.5 GM in PREMIX 1 EACH IV PRN ×6 (14:13→23:14)
--- NOTE | 2017-02-01 14:13 | Event Note ---
Hog[place]-Vivian catheter placed via right subclavian vein.
--- NOTE | 2017-02-01 14:19 | XRay Report ---
Single view the chest. Indication: Line placement. Postoperative. Comparison: Exam from yesterday. The heart is enlarged. Post median sternotomy. Distal tip of an endotracheal tube is at T3-T4, well above the [place]. [place]-Vivian catheter distal tip is in the pulmonary outflow tract on the left. Right IJ line is in satisfactory position. A mediastinal chest tube is in satisfactory position. The nasogastric tube is turned on itself, at the midthoracic level, and terminates in the cervical esophagus. A right-sided chest tube and a left-sided chest tube are also in place. The right lung is clear. There is mild atelectasis at the left lung base. No pneumothorax. Impression: Postoperative appearance of the chest. Mild left basilar atelectasis. The distal tip of the nasogastric tube turns on itself within the esophagus. It needs to be retracted and replaced. Findings were called to the nursing service in the CVR. PROCEDURE INTERPRETED AT [facility] DEPARTMENT OF RADIOLOGY Final Report Signed by: Dr. Charlene Myles
[2017-02-01 14:52] LABS: ABG Base Excess -1.7 MMOL/L (-2.5-2.5); ABG HCO3 19.8 MMOL/L (20-26); ABG Oxygen Saturation 98.2 % (95-100); ABG PCO2 25.2 MM HG (35-48); ABG PH 7.513 (7.35-7.45); ABG PO2 118.7 MM HG (80-95); ABG TCO2 20.6 MMOL/L (23-27); Glucose Heart Surgery 158 MG/DL (74-106); Hemoglobin Heart Surgery 12.8 G/DL (14.0-18.0); Potassium Heart/CVR 3.6 MMOL/L (3.5-5.1)
[2017-02-01] MEDS: POTASSIUM CHLORIDE RIDER 20 MEQ in PREMIX 1 EACH IV PRN ×3 (15:02→18:29)
[2017-02-01] MEDS: LACTATED RINGERS 1,000 ML IV PRN ×2 (15:26→15:28)
[2017-02-01 16:27] LABS: ABG Base Excess -0.5 MMOL/L (-2.5-2.5); ABG PCO2 26.8 MM HG (35-48); ABG PH 7.508 (7.35-7.45); ABG TCO2 18.8 MMOL/L (23-27); Glucose Heart Surgery 136 MG/DL (74-106); Hematocrit Heart Surgery 36.7 PERCENT (42-52); Hemoglobin Heart Surgery 11.9 G/DL (14.0-18.0)
[2017-02-01 17:18] LABS: VBG Base Excess -0.9 MEQ/L (0-4); VBG Oxygen Saturation 57.3 %; VBG PCO2 31.1 MMHG (41-51); VBG PH 7.461; VBG PO2 29.5 MMHG (17-40)
[2017-02-01 18:21] LABS: ABG Base Excess -1.6 MMOL/L (-2.5-2.5); ABG HCO3 22.1 MMOL/L (20-26); ABG Oxygen Saturation 97.5 % (95-100); ABG PH 7.431 (7.35-7.45); ABG PO2 107.2 MM HG (80-95); ABG TCO2 23.2 MMOL/L (23-27); Glucose Heart Surgery 107 MG/DL (74-106); Hemoglobin Heart Surgery 11.3 G/DL (14.0-18.0); Potassium Heart/CVR 3.9 MMOL/L (3.5-5.1)
[2017-02-01 20:05] LABS: VBG Base Excess -1.2 MEQ/L (0-4); VBG HCO3 22.9 MEQ/L (24-28); VBG Oxygen Saturation 66.4 %; VBG PCO2 35.4 MMHG (41-51); VBG PH 7.418; VBG PO2 34.7 MMHG (17-40)
[2017-02-01] MEDS: CEFUROXIME INJ 1,500 MG in SODIUM CHLORIDE 0.9% 100 ML IV SCH (21:11)
[2017-02-01 22:04] LABS: ABG Base Excess -2.8 MMOL/L (-2.5-2.5); ABG HCO3 22.1 MMOL/L (20-26); ABG Oxygen Saturation 98.8 % (95-100); ABG PCO2 37.6 MM HG (35-48); ABG PH 7.376 (7.35-7.45); Glucose Heart Surgery 136 MG/DL (74-106); Hematocrit Heart Surgery 31.9 PERCENT (42-52); Hemoglobin Heart Surgery 10.3 G/DL (14.0-18.0); Potassium Heart/CVR 4.4 MMOL/L (3.5-5.1)
[2017-02-01] MEDS ORDERED: FUROSEMIDE 40 MG/4 ML VIAL IV PRN (22:13)
[2017-02-01] MEDS ORDERED: PROPOFOL 1,000 MG/100 ML BOTTLE IV ONE (23:42)
[2017-02-01] MEDS ORDERED: PROPOFOL 1,000 MG/100 ML BOTTLE IV SCH (23:45)
[2017-02-01] MEDS: MORPHINE 10 MG/1 ML VIAL IV PRN (23:47)
[2017-02-02 00:09] LABS: ABG HCO3 19.6 MMOL/L (20-26); ABG Oxygen Saturation 98.5 % (95-100); ABG PCO2 31.1 MM HG (35-48); ABG PH 7.418 (7.35-7.45); ABG PO2 158.5 MM HG (80-95); ABG TCO2 20.6 MMOL/L (23-27); Glucose Heart Surgery 139 MG/DL (74-106); Hemoglobin Heart Surgery 11.2 G/DL (14.0-18.0); Potassium Heart/CVR 4.3 MMOL/L (3.5-5.1)
[2017-02-02 01:02] LABS: ABG Base Excess -1.6 MMOL/L (-2.5-2.5); ABG HCO3 20.9 MMOL/L (20-26); ABG Oxygen Saturation 98.2 % (95-100); ABG PCO2 28.3 MM HG (35-48); ABG PH 7.486 (7.35-7.45); ABG PO2 131.7 MM HG (80-95); ABG TCO2 21.8 MMOL/L (23-27); Glucose Heart Surgery 150 MG/DL (74-106); Hemoglobin Heart Surgery 10.7 G/DL (14.0-18.0); Potassium Heart/CVR 4.3 MMOL/L (3.5-5.1)
[2017-02-02] MEDS: KETOROLAC 30 MG/1 ML VIAL IV SCH ×4 (01:26→20:45)
[2017-02-02 02:07] LABS: ABG Base Excess -1.3 MMOL/L (-2.5-2.5); ABG HCO3 23.3 MMOL/L (20-26); ABG Oxygen Saturation 98.5 % (95-100); ABG PCO2 33.7 MM HG (35-48); ABG PH 7.431 (7.35-7.45); ABG TCO2 20.3 MMOL/L (23-27); Glucose Heart Surgery 155 MG/DL (74-106); Potassium Heart/CVR 4.2 MMOL/L (3.5-5.1)
[2017-02-02] MEDS: POTASSIUM CHLORIDE RIDER 20 MEQ in PREMIX 1 EACH IV PRN (02:15)
[2017-02-02 03:13] LABS: VBG Base Excess -0.4 MEQ/L (0-4); VBG HCO3 23.9 MEQ/L (24-28); VBG Oxygen Saturation 65.9 %; VBG PCO2 37.8 MMHG (41-51); VBG PH 7.418; VBG PO2 27.8 MMHG (17-40)
[2017-02-02 03:58] LABS: Hematocrit 29.6 VOL% (42.0-52.0); Hemoglobin 10.1 GM/DL (14.0-18.0); Immature Granulocytes % 0.5 %; Immature Granulocytes Absolute 0.06 #; Lymphocytes # 0.8 10*3/uL (1.4-4.0); Lymphocytes % 6.5 % (21.2-54.2); Mean Corpuscular HGB Conc 34.1 GM/DL (32-36); Mean Corpuscular Hemoglobin 35 PG (27-34); Mean Corpuscular Volume 102.4 FL (87-102); Mean Platelet Volume 12.2 FL (9.6-12.0); Monocytes # 0.5 10*3/uL (0.11-0.8); Monocytes % 4.1 % (1.7-12.7); Neutrophils # 10.9 10*3/uL (1.4-7.4); Neutrophils % 88.9 % (38.7-73.9); Red Blood Count 2.89 MC/CUMM (3.8-5.5); Red Cell Distribution Width 13.4 % (9.3-17.3); White Blood Count 12.2 T/CUMM (4-12)
[2017-02-02 04:19] LABS: Platelet Count 77 T/CUMM (130-400)
[2017-02-02] MEDS: ALBUMIN 5% 12.5 GM in PREMIX 1 EACH IV PRN ×2 (04:31→17:06)
[2017-02-02 04:32] LABS: Bilirubin,Direct 0.33 MG/DL (0.0-0.20); Calcium 8.2 MG/DL (8.5-10.1); Magnesium 2.1 MG/DL (1.8-2.4); Osmolality,Calculated 289.8 MOS/KG (273-304); Potassium 4.6 MMOL/L (3.5-5.1); Total Protein 5.9 G/DL (6.4-8.3)
[2017-02-02 04:45] LABS: Anisocytosis 2+; Band Neutrophils 3 % (0-10); Lymphocytes 7 % (20-55); Macrocytosis 2+; Ovalocytes 1+; Platelet Estimate Decreased; Segmented Neutrophils 88 % (50-85); Total Cells Counted 100
[2017-02-02] MEDS: MORPHINE 10 MG/1 ML VIAL IV PRN ×2 (04:46→05:50)
[2017-02-02 04:56] LABS: CKMB % 8.5 %
[2017-02-02 05:02] LABS: Troponin I Only 30.1 NG/ML (0.00-0.045)
[2017-02-02 05:39] LABS: ABG Oxygen Saturation 98.2 % (95-100); ABG PCO2 33.7 MM HG (35-48); ABG PH 7.412 (7.35-7.45); ABG PO2 136.8 MM HG (80-95); Glucose Heart Surgery 140 MG/DL (74-106); Hemoglobin Heart Surgery 11.3 G/DL (14.0-18.0); Potassium Heart/CVR 4.3 MMOL/L (3.5-5.1)
--- NOTE | 2017-02-02 06:11 | Cardiothoracic Progress Note ---
Cardiothoracic Subjective Interval history: Patient is intubated on CPAP. He has tolerated this well and his blood gases are satisfactory. He is awake alert and responsive. Think he is ready for extubation and we are preparing for that now. Otherwise she had a reasonably stable night although initially he did wake up confused and agitated and had to be re-sedated. His vital signs have been stable and his cardiac output this morning is 5.7 L/min. His blood pressures a little on the high side right now but we will see what it is like when he is extubated. He did have a moderate troponin elevation to 30 this morning but as noted his hemodynamics have been stable. His chest tube drainage has been minimal and we can probably remove his chest tubes later this morning. Urine output has been good and creatinine is within normal limits. I will check him again after surgery this morning but hopefully we can remove his chest tubes and he may be ready for transfer to telemetry later today. Overall his progress appears satisfactory. Exam (Progress Note) - Constitutional Vitals: Period Temp Pulse Resp BP Sys/Espinal Pulse Ox Last 24 Hr 97.1 F-99.0 F 61-78 10-20 81-140/45-74 96-100 Result/EKG - Labs CBC & BMP: 02/02/17 03:00 02/02/17 03:00 Labs: Laboratory Results - last 24 hr 01/31/17 02/01/17 02/01/17 05:15 07:51 07:51 WBC RBC Hgb Hct MCV MCH MCHC RDW Plt Count 83 L D MPV Neut % (Auto) Lymph % (Auto) [place] % (Auto) Eos % (Auto) Baso % (Auto) Neut # (Auto) Lymph # (Auto) [place] # (Auto) Eos # (Auto) Baso # (Auto) Total Counted Immature Gran % Nucleated RBC % Immature Gran # Segmented Neutrophils Band Neutrophils Lymphocytes Monocytes Nucleated RBCs # Platelet Estimate Immature Plt Fraction Anisocytosis Macrocytosis Ovalocytes INR PT Patient/Control Mix Circ Anticoag PTT Patient Temperature 37 ABG pH 7.438 ABG pH at Pt Temp 7.438 ABG pCO2 32.1 L ABG pCO2 at Pt Temp 32.1 ABG pO2 267.0 H ABG pO2 at Pt Temp 267.0 ABG HCO3 23.2 ABG Total CO2 18.6 L ABG O2 Saturation 99.4 ABG Base Excess -1.5 ABG Sodium 141 VBG pH VBG pCO2 VBG pO2 VBG HCO3 VBG Total CO2 VBG O2 Saturation VBG Base Excess Hemoglobin 13.9 L Hematocrit 42.7 Potassium 3.6 Glucose 128 H Ionized Calcium 1.13 L FiO2 Sodium Chloride Carbon Dioxide Anion Gap BUN Creatinine GFR Calculation BUN/Creatinine Ratio POC Glucose Calculated Osmolality Calcium Venous Ioniz Calcium Magnesium Total Bilirubin Direct Bilirubin AST ALT Alkaline Phosphatase Total Creatine Kinase CK-MB (CK-2) CK and CKMB Interp Troponin I Total Protein Albumin Globulin Albumin/Globulin Ratio Urine Color Urine Appearance Urine pH Ur Specific [place] Urine Protein Urine Glucose (UA) Urine Ketones Urine Blood Urine Nitrate Urine Bilirubin Urine Urobilinogen Urine Leukocytes Urine RBC Urine WBC Ur Squamous Epith Cells Hyaline Casts Urine Mucus Ur Culture Indicated? Blood Type A POSITIVE Antibody Screen Negative Crossmatch See Detail 02/01/17 02/01/17 02/01/17 07:54 10:40 11:10 WBC RBC Hgb Hct MCV MCH MCHC RDW Plt Count MPV Neut % (Auto) Lymph % (Auto) [place] % (Auto) Eos % (Auto) Baso % (Auto) Neut # (Auto) Lymph # (Auto) [place] # (Auto) Eos # (Auto) Baso # (Auto) Total Counted Immature Gran % Nucleated RBC % Immature Gran # Segmented Neutrophils Band Neutrophils Lymphocytes Monocytes Nucleated RBCs # Platelet Estimate Immature Plt Fraction Anisocytosis Macrocytosis Ovalocytes INR PT Patient/Control Mix Circ Anticoag PTT Patient Temperature 34 34 ABG pH ABG pH at Pt Temp 7.421 7.446 ABG pCO2 ABG pCO2 at Pt Temp 36.5 32.7 ABG pO2 ABG pO2 at Pt Temp 39.8 39.7 ABG HCO3 ABG Total CO2 ABG O2 Saturation ABG Base Excess ABG Sodium 136 139 VBG pH 7.377 7.402 VBG pCO2 42.2 37.8 L VBG pO2 48.9 H 48.8 H VBG HCO3 23.9 L 23.4 L VBG Total CO2 23.0 21.7 VBG O2 Saturation 84.3 84.7 VBG Base Excess -0.4 L -1.0 L Hemoglobin 8.9 L D 9.1 L Hematocrit 27.6 L 28.3 L Potassium 5.1 4.1 Glucose 357 H 288 H Ionized Calcium FiO2 80.00 80.00 Sodium Chloride Carbon Dioxide Anion Gap BUN Creatinine GFR Calculation BUN/Creatinine Ratio POC Glucose Calculated Osmolality Calcium Venous Ioniz Calcium 0.90 L 0.94 L Magnesium Total Bilirubin Direct Bilirubin AST ALT Alkaline Phosphatase Total Creatine Kinase CK-MB (CK-2) CK and CKMB Interp Troponin I Total Protein Albumin Globulin Albumin/Globulin Ratio Urine Color Yellow Urine Appearance Clear Urine pH 5.0 Ur Specific [place] 1.021 Urine Protein Negative Urine Glucose (UA) Negative Urine Ketones 20 Urine Blood Negative Urine Nitrate Negative Urine Bilirubin Negative Urine Urobilinogen < 2.0 H Urine Leukocytes Negative Urine RBC <1 Urine WBC <1 Ur Squamous Epith Cells Occasional Hyaline Casts 3 Urine Mucus Occasional Ur Culture Indicated? Not indicated Blood Type Antibody Screen Crossmatch 02/01/17 02/01/17 02/01/17 12:12 12:20 13:10 WBC 10.4 D RBC 3.57 L Hgb 12.5 L Hct 35.7 L MCV 100.0 MCH 35 H MCHC 35.0 RDW 13.2 Plt Count 87 L 110 L D MPV 11.2 Neut % (Auto) 87.4 H Lymph % (Auto) 9.2 L [place] % (Auto) 2.5 Eos % (Auto) 0.3 Baso % (Auto) 0.2 Neut # (Auto) 9.1 H Lymph # (Auto) 1.0 L [place] # (Auto) 0.3 Eos # (Auto) 0.0 Baso # (Auto) 0.0 Total Counted Immature Gran % 0.4 Nucleated RBC % 0.0 Immature Gran # 0.04 Segmented Neutrophils Band Neutrophils Lymphocytes Monocytes Nucleated RBCs # 0.00 Platelet Estimate Immature Plt Fraction 0.0 Anisocytosis Macrocytosis Ovalocytes INR PT Patient/Control Mix Circ Anticoag PTT Patient Temperature 37 ABG pH 7.331 L ABG pH at Pt Temp 7.331 ABG pCO2 44.7 ABG pCO2 at Pt Temp 44.7 ABG pO2 133.0 H ABG pO2 at Pt Temp 133.0 ABG HCO3 22.4 ABG Total CO2 21.5 L ABG O2 Saturation 98.4 ABG Base Excess -2.4 ABG Sodium 142 VBG pH VBG pCO2 VBG pO2 VBG HCO3 VBG Total CO2 VBG O2 Saturation VBG Base Excess Hemoglobin 10.6 L Hematocrit 32.7 L Potassium 3.6 Glucose 225 H Ionized Calcium 1.24 FiO2 Sodium Chloride Carbon Dioxide Anion Gap BUN Creatinine GFR Calculation BUN/Creatinine Ratio POC Glucose Calculated Osmolality Calcium Venous Ioniz Calcium Magnesium Total Bilirubin Direct Bilirubin AST ALT Alkaline Phosphatase Total Creatine Kinase CK-MB (CK-2) CK and CKMB Interp Troponin I Total Protein Albumin Globulin Albumin/Globulin Ratio Urine Color Urine Appearance Urine pH Ur Specific [place] Urine Protein Urine Glucose (UA) Urine Ketones Urine Blood Urine Nitrate Urine Bilirubin Urine Urobilinogen Urine Leukocytes Urine RBC Urine WBC Ur Squamous Epith Cells Hyaline Casts Urine Mucus Ur Culture Indicated? Blood Type Antibody Screen Crossmatch 02/01/17 02/01/17 02/01/17 13:10 13:10 13:10 WBC RBC Hgb Hct MCV MCH MCHC RDW Plt Count MPV Neut % (Auto) Lymph % (Auto) [place] % (Auto) Eos % (Auto) Baso % (Auto) Neut # (Auto) Lymph # (Auto) [place] # (Auto) Eos # (Auto) Baso # (Auto) Total Counted Immature Gran % Nucleated RBC % Immature Gran # Segmented Neutrophils Band Neutrophils Lymphocytes Monocytes Nucleated RBCs # Platelet Estimate Immature Plt Fraction Anisocytosis Macrocytosis Ovalocytes INR 1.3 PT Patient/Control Mix 13.7 D Circ Anticoag PTT 28.5 Patient Temperature ABG pH ABG pH at Pt Temp ABG pCO2 ABG pCO2 at Pt Temp ABG pO2 ABG pO2 at Pt Temp ABG HCO3 ABG Total CO2 ABG O2 Saturation ABG Base Excess ABG Sodium VBG pH VBG pCO2 VBG pO2 VBG HCO3 VBG Total CO2 VBG O2 Saturation VBG Base Excess Hemoglobin Hematocrit Potassium 4.2 Glucose 220 H Ionized Calcium FiO2 Sodium 147 H Chloride 113 H Carbon Dioxide 24 Anion Gap 14.2 BUN 17 Creatinine 1.20 GFR Calculation 65 BUN/Creatinine Ratio 14.00 POC Glucose Calculated Osmolality 300.4 Calcium 8.5 Venous Ioniz Calcium Magnesium 2.4 Total Bilirubin 1.70 H Direct Bilirubin AST 41 H ALT 29 Alkaline Phosphatase 74 Total Creatine Kinase 371 H CK-MB (CK-2) 27.6 H CK and CKMB Interp 7.4 Troponin I 7.790 H Total Protein 5.7 L Albumin 3.4 Globulin 2.3 Albumin/Globulin Ratio 1.4 Urine Color Urine Appearance Urine pH Ur Specific [place] Urine Protein Urine Glucose (UA) Urine Ketones Urine Blood Urine Nitrate Urine Bilirubin Urine Urobilinogen Urine Leukocytes Urine RBC Urine WBC Ur Squamous Epith Cells Hyaline Casts Urine Mucus Ur Culture Indicated? Blood Type Antibody Screen Crossmatch 02/01/17 02/01/17 02/01/17 13:11 14:47 15:58 WBC RBC Hgb Hct MCV MCH MCHC RDW Plt Count MPV Neut % (Auto) Lymph % (Auto) [place] % (Auto) Eos % (Auto) Baso % (Auto) Neut # (Auto) Lymph # (Auto) [place] # (Auto) Eos # (Auto) Baso # (Auto) Total Counted Immature Gran % Nucleated RBC % Immature Gran # Segmented Neutrophils Band Neutrophils Lymphocytes Monocytes Nucleated RBCs # Platelet Estimate Immature Plt Fraction Anisocytosis Macrocytosis Ovalocytes INR PT Patient/Control Mix Circ Anticoag PTT Patient Temperature ABG pH 7.480 H 7.513 H ABG pH at Pt Temp ABG pCO2 28.4 L 25.2 L ABG pCO2 at Pt Temp ABG pO2 97.0 H 118.7 H ABG pO2 at Pt Temp ABG HCO3 20.7 19.8 L ABG Total CO2 21.5 L 20.6 L ABG O2 Saturation 97.7 98.2 ABG Base Excess -1.7 -1.7 ABG Sodium VBG pH VBG pCO2 VBG pO2 VBG HCO3 VBG Total CO2 VBG O2 Saturation VBG Base Excess Hemoglobin 13.0 L 12.8 L Hematocrit 38.0 L 38.0 L Potassium 3.9 3.6 Glucose 202 H 158 H Ionized Calcium FiO2 Sodium Chloride Carbon Dioxide Anion Gap BUN Creatinine GFR Calculation BUN/Creatinine Ratio POC Glucose 138 H Calculated Osmolality Calcium Venous Ioniz Calcium Magnesium Total Bilirubin Direct Bilirubin AST ALT Alkaline Phosphatase Total Creatine Kinase CK-MB (CK-2) CK and CKMB Interp Troponin I Total Protein Albumin Globulin Albumin/Globulin Ratio Urine Color Urine Appearance Urine pH Ur Specific [place] Urine Protein Urine Glucose (UA) Urine Ketones Urine Blood Urine Nitrate Urine Bilirubin Urine Urobilinogen Urine Leukocytes Urine RBC Urine WBC Ur Squamous Epith Cells Hyaline Casts Urine Mucus Ur Culture Indicated? Blood Type Antibody Screen Crossmatch 02/01/17 02/01/17 02/01/17 16:20 17:12 18:20 WBC RBC Hgb Hct MCV MCH MCHC RDW Plt Count MPV Neut % (Auto) Lymph % (Auto) [place] % (Auto) Eos % (Auto) Baso % (Auto) Neut # (Auto) Lymph # (Auto) [place] # (Auto) Eos # (Auto) Baso # (Auto) Total Counted Immature Gran % Nucleated RBC % Immature Gran # Segmented Neutrophils Band Neutrophils Lymphocytes Monocytes Nucleated RBCs # Platelet Estimate Immature Plt Fraction Anisocytosis Macrocytosis Ovalocytes INR PT Patient/Control Mix Circ Anticoag PTT Patient Temperature ABG pH 7.508 H 7.431 ABG pH at Pt Temp ABG pCO2 26.8 L 34.0 L ABG pCO2 at Pt Temp ABG pO2 131.0 H 107.2 H ABG pO2 at Pt Temp ABG HCO3 24.0 22.1 ABG Total CO2 18.8 L 23.2 ABG O2 Saturation 99.0 97.5 ABG Base Excess -0.5 -1.6 ABG Sodium VBG pH 7.461 VBG pCO2 31.1 L VBG pO2 29.5 VBG HCO3 23.0 L VBG Total CO2 20.2 VBG O2 Saturation 57.3 VBG Base Excess -0.9 L Hemoglobin 11.9 L 11.3 L Hematocrit 36.7 L 33.0 L Potassium 4.0 3.9 Glucose 136 H 107 H Ionized Calcium FiO2 21.00 Sodium Chloride Carbon Dioxide Anion Gap BUN Creatinine GFR Calculation BUN/Creatinine Ratio POC Glucose Calculated Osmolality Calcium Venous Ioniz Calcium Magnesium Total Bilirubin Direct Bilirubin AST ALT Alkaline Phosphatase Total Creatine Kinase CK-MB (CK-2) CK and CKMB Interp Troponin I Total Protein Albumin Globulin Albumin/Globulin Ratio Urine Color Urine Appearance Urine pH Ur Specific [place] Urine Protein Urine Glucose (UA) Urine Ketones Urine Blood Urine Nitrate Urine Bilirubin Urine Urobilinogen Urine Leukocytes Urine RBC Urine WBC Ur Squamous Epith Cells Hyaline Casts Urine Mucus Ur Culture Indicated? Blood Type Antibody Screen Crossmatch 02/01/17 02/01/17 02/01/17 19:05 19:56 20:13 WBC RBC Hgb Hct MCV MCH MCHC RDW Plt Count MPV Neut % (Auto) Lymph % (Auto) [place] % (Auto) Eos % (Auto) Baso % (Auto) Neut # (Auto) Lymph # (Auto) [place] # (Auto) Eos # (Auto) Baso # (Auto) Total Counted Immature Gran % Nucleated RBC % Immature Gran # Segmented Neutrophils Band Neutrophils Lymphocytes Monocytes Nucleated RBCs # Platelet Estimate Immature Plt Fraction Anisocytosis Macrocytosis Ovalocytes INR PT Patient/Control Mix Circ Anticoag PTT Patient Temperature ABG pH ABG pH at Pt Temp ABG pCO2 ABG pCO2 at Pt Temp ABG pO2 ABG pO2 at Pt Temp ABG HCO3 ABG Total CO2 ABG O2 Saturation ABG Base Excess ABG Sodium VBG pH 7.418 VBG pCO2 35.4 L VBG pO2 34.7 VBG HCO3 22.9 L VBG Total CO2 20.9 VBG O2 Saturation 66.4 VBG Base Excess -1.2 L Hemoglobin Hematocrit Potassium Glucose Ionized Calcium FiO2 21.00 Sodium Chloride Carbon Dioxide Anion Gap BUN Creatinine GFR Calculation BUN/Creatinine Ratio POC Glucose 121 H 127 H Calculated Osmolality Calcium Venous Ioniz Calcium Magnesium Total Bilirubin Direct Bilirubin AST ALT Alkaline Phosphatase Total Creatine Kinase CK-MB (CK-2) CK and CKMB Interp Troponin I Total Protein Albumin Globulin Albumin/Globulin Ratio Urine Color Urine Appearance Urine pH Ur Specific [place] Urine Protein Urine Glucose (UA) Urine Ketones Urine Blood Urine Nitrate Urine Bilirubin Urine Urobilinogen Urine Leukocytes Urine RBC Urine WBC Ur Squamous Epith Cells Hyaline Casts Urine Mucus Ur Culture Indicated? Blood Type Antibody Screen Crossmatch 02/01/17 02/01/17 02/01/17 20:54 21:51 21:52 WBC RBC Hgb Hct MCV MCH MCHC RDW Plt Count MPV Neut % (Auto) Lymph % (Auto) [place] % (Auto) Eos % (Auto) Baso % (Auto) Neut # (Auto) Lymph # (Auto) [place] # (Auto) Eos # (Auto) Baso # (Auto) Total Counted Immature Gran % Nucleated RBC % Immature Gran # Segmented Neutrophils Band Neutrophils Lymphocytes Monocytes Nucleated RBCs # Platelet Estimate Immature Plt Fraction Anisocytosis Macrocytosis Ovalocytes INR PT Patient/Control Mix Circ Anticoag PTT Patient Temperature ABG pH 7.376 ABG pH at Pt Temp ABG pCO2 37.6 ABG pCO2 at Pt Temp ABG pO2 148.0 H ABG pO2 at Pt Temp ABG HCO3 22.1 ABG Total CO2 20.0 L ABG O2 Saturation 98.8 ABG Base Excess -2.8 L ABG Sodium VBG pH VBG pCO2 VBG pO2 VBG HCO3 VBG Total CO2 VBG O2 Saturation VBG Base Excess Hemoglobin 10.3 L Hematocrit 31.9 L Potassium 4.4 Glucose 136 H Ionized Calcium FiO2 Sodium Chloride Carbon Dioxide Anion Gap BUN Creatinine GFR Calculation BUN/Creatinine Ratio POC Glucose 123 H Calculated Osmolality Calcium Venous Ioniz Calcium Magnesium Total Bilirubin Direct Bilirubin AST ALT Alkaline Phosphatase Total Creatine Kinase 1019 H D CK-MB (CK-2) 81.7 H D CK and CKMB Interp 8.0 Troponin I 21.000 H D Total Protein Albumin Globulin Albumin/Globulin Ratio Urine Color Urine Appearance Urine pH Ur Specific [place] Urine Protein Urine Glucose (UA) Urine Ketones Urine Blood Urine Nitrate Urine Bilirubin Urine Urobilinogen Urine Leukocytes Urine RBC Urine WBC Ur Squamous Epith Cells Hyaline Casts Urine Mucus Ur Culture Indicated? Blood Type Antibody Screen Crossmatch 02/01/17 02/01/17 02/02/17 23:07 23:52 00:55 WBC RBC Hgb Hct MCV MCH MCHC RDW Plt Count MPV Neut % (Auto) Lymph % (Auto) [place] % (Auto) Eos % (Auto) Baso % (Auto) Neut # (Auto) Lymph # (Auto) [place] # (Auto) Eos # (Auto) Baso # (Auto) Total Counted Immature Gran % Nucleated RBC % Immature Gran # Segmented Neutrophils Band Neutrophils Lymphocytes Monocytes Nucleated RBCs # Platelet Estimate Immature Plt Fraction Anisocytosis Macrocytosis Ovalocytes INR PT Patient/Control Mix Circ Anticoag PTT Patient Temperature ABG pH 7.418 7.486 H ABG pH at Pt Temp ABG pCO2 31.1 L 28.3 L ABG pCO2 at Pt Temp ABG pO2 158.5 H 131.7 H ABG pO2 at Pt Temp ABG HCO3 19.6 L 20.9 ABG Total CO2 20.6 L 21.8 L ABG O2 Saturation 98.5 98.2 ABG Base Excess -4.0 L -1.6 ABG Sodium VBG pH VBG pCO2 VBG pO2 VBG HCO3 VBG Total CO2 VBG O2 Saturation VBG Base Excess Hemoglobin 11.2 L 10.7 L Hematocrit 33.0 L 31.0 L Potassium 4.3 4.3 Glucose 139 H 150 H Ionized Calcium FiO2 Sodium Chloride Carbon Dioxide Anion Gap BUN Creatinine GFR Calculation BUN/Creatinine Ratio POC Glucose 163 H Calculated Osmolality Calcium Venous Ioniz Calcium Magnesium Total Bilirubin Direct Bilirubin AST ALT Alkaline Phosphatase Total Creatine Kinase CK-MB (CK-2) CK and CKMB Interp Troponin I Total Protein Albumin Globulin Albumin/Globulin Ratio Urine Color Urine Appearance Urine pH Ur Specific [place] Urine Protein Urine Glucose (UA) Urine Ketones Urine Blood Urine Nitrate Urine Bilirubin Urine Urobilinogen Urine Leukocytes Urine RBC Urine WBC Ur Squamous Epith Cells Hyaline Casts Urine Mucus Ur Culture Indicated? Blood Type Antibody Screen Crossmatch 02/02/17 02/02/17 02/02/17 02:00 03:00 03:00 WBC 12.2 H RBC 2.89 L Hgb 10.1 L D Hct 29.6 L MCV 102.4 H MCH 35 H MCHC 34.1 RDW 13.4 Plt Count 77 L D MPV 12.2 H Neut % (Auto) 88.9 H Lymph % (Auto) 6.5 L [place] % (Auto) 4.1 Eos % (Auto) 0.0 Baso % (Auto) 0.0 Neut # (Auto) 10.9 H Lymph # (Auto) 0.8 L [place] # (Auto) 0.5 Eos # (Auto) 0.0 Baso # (Auto) 0.0 Total Counted 100 Immature Gran % 0.5 Nucleated RBC % 0.0 Immature Gran # 0.06 Segmented Neutrophils 88 H Band Neutrophils 3 Lymphocytes 7 L Monocytes 2 Nucleated RBCs # 0.00 Platelet Estimate Decreased Immature Plt Fraction 5.2 Anisocytosis 2+ Macrocytosis 2+ Ovalocytes 1+ INR PT Patient/Control Mix Circ Anticoag PTT Patient Temperature ABG pH 7.431 ABG pH at Pt Temp ABG pCO2 33.7 L ABG pCO2 at Pt Temp ABG pO2 112.0 H ABG pO2 at Pt Temp ABG HCO3 23.3 ABG Total CO2 20.3 L ABG O2 Saturation 98.5 ABG Base Excess -1.3 ABG Sodium VBG pH VBG pCO2 VBG pO2 VBG HCO3 VBG Total CO2 VBG O2 Saturation VBG Base Excess Hemoglobin 10.0 L Hematocrit 31.0 L Potassium 4.2 4.6 Glucose 155 H 143 H Ionized Calcium FiO2 Sodium 144 Chloride 112 H Carbon Dioxide 24 Anion Gap 12.6 BUN 18 Creatinine 1.20 GFR Calculation 65 BUN/Creatinine Ratio 15.00 POC Glucose Calculated Osmolality 289.8 Calcium 8.2 L Venous Ioniz Calcium Magnesium 2.1 Total Bilirubin 1.00 Direct Bilirubin 0.330 H AST 151 H ALT 35 Alkaline Phosphatase 48 Total Creatine Kinase CK-MB (CK-2) CK and CKMB Interp Troponin I Total Protein 5.9 L Albumin 4.0 Globulin 1.9 L Albumin/Globulin Ratio 2.1 Urine Color Urine Appearance Urine pH Ur Specific [place] Urine Protein Urine Glucose (UA) Urine Ketones Urine Blood Urine Nitrate Urine Bilirubin Urine Urobilinogen Urine Leukocytes Urine RBC Urine WBC Ur Squamous Epith Cells Hyaline Casts Urine Mucus Ur Culture Indicated? Blood Type Antibody Screen Crossmatch 02/02/17 02/02/17 02/02/17 03:00 03:04 05:30 WBC RBC Hgb Hct MCV MCH MCHC RDW Plt Count MPV Neut % (Auto) Lymph % (Auto) [place] % (Auto) Eos % (Auto) Baso % (Auto) Neut # (Auto) Lymph # (Auto) [place] # (Auto) Eos # (Auto) Baso # (Auto) Total Counted Immature Gran % Nucleated RBC % Immature Gran # Segmented Neutrophils Band Neutrophils Lymphocytes Monocytes Nucleated RBCs # Platelet Estimate Immature Plt Fraction Anisocytosis Macrocytosis Ovalocytes INR PT Patient/Control Mix Circ Anticoag PTT Patient Temperature ABG pH 7.412 ABG pH at Pt Temp ABG pCO2 33.7 L ABG pCO2 at Pt Temp ABG pO2 136.8 H ABG pO2 at Pt Temp ABG HCO3 21.0 ABG Total CO2 22.0 L ABG O2 Saturation 98.2 ABG Base Excess -3.0 L ABG Sodium VBG pH 7.418 VBG pCO2 37.8 L VBG pO2 27.8 VBG HCO3 23.9 L VBG Total CO2 25.0 VBG O2 Saturation 65.9 VBG Base Excess -0.4 L Hemoglobin 11.3 L Hematocrit 33.0 L Potassium 4.3 Glucose 140 H Ionized Calcium FiO2 Sodium Chloride Carbon Dioxide Anion Gap BUN Creatinine GFR Calculation BUN/Creatinine Ratio POC Glucose Calculated Osmolality Calcium Venous Ioniz Calcium Magnesium Total Bilirubin Direct Bilirubin AST ALT Alkaline Phosphatase Total Creatine Kinase 1431 H D CK-MB (CK-2) 121.7 H D CK and CKMB Interp 8.5 Troponin I 30.100 H D Total Protein Albumin Globulin Albumin/Globulin Ratio Urine Color Urine Appearance Urine pH Ur Specific [place] Urine Protein Urine Glucose (UA) Urine Ketones Urine Blood Urine Nitrate Urine Bilirubin Urine Urobilinogen Urine Leukocytes Urine RBC Urine WBC Ur Squamous Epith Cells Hyaline Casts Urine Mucus Ur Culture Indicated? Blood Type Antibody Screen Crossmatch Quality Measures - VTE Contraindication to Pharmacological VTE Prophylaxis: Already on Theraputic Agent , No Prophylaxis Needed
[2017-02-02] MEDS ORDERED: GLUCAGON 1 MG VIAL IM PRN (06:13)
[2017-02-02] MEDS ORDERED: DEXTROSE 50% 25 GM/50 ML SYRINGE IV PRN (06:13)
[2017-02-02] MEDS ORDERED: NITROGLYCERIN DRIP 50 MG/250 ML BOTTLE IV ONE (06:14)
[2017-02-02] MEDS: NITROGLYCERIN DRIP 50 MG/250 ML BOTTLE IV SCH ×2 (06:19→18:32)
[2017-02-02 06:53] LABS: ABG Base Excess -5.2 MMOL/L (-2.5-2.5); ABG HCO3 20.5 MMOL/L (20-26); ABG PCO2 40.7 MM HG (35-48); ABG PO2 122.7 MM HG (80-95); ABG TCO2 21.7 MMOL/L (23-27); Glucose Heart Surgery 161 MG/DL (74-106); Hemoglobin Heart Surgery 11.7 G/DL (14.0-18.0)
--- NOTE | 2017-02-02 07:19 | XRay Report ---
Exam: XR chest 1V portable Date: 02/02/2017 4:00 AM Indication: Follow-up cardiac surgery postop Comparison: 02/01/2017 Technical: AP Findings: Endotracheal tube nasogastric tube and a right-sided [place]-Vivian catheter is in the pulmonary outflow tract. A right IJ catheters in these right atrium. By basilar thoracotomy tubes are present. Mediastinal drain is noted. No pneumothorax. Tiny effusion in the left base. Sternotomy wires are present with underlying cardiac enlargement. Impression: 1. Status post sternotomy and stable appearance of life support tubes 2. Tiny low volume left effusion without pneumothorax PROCEDURE INTERPRETED AT [facility] DEPARTMENT OF RADIOLOGY Final Report Signed by: Dr. Sergio Vidal
--- NOTE | 2017-02-02 07:58 | EKG Report ---
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
--- NOTE | 2017-02-02 08:42 | Anesthesia Post-Op ---
Anesthesia Post OP - Post Ansesthetic Evaluation Patient seen in post op: Yes Resp: within normal limits CV: within normal limits Mental: within normal limits Temp: within normal limits [id number]: within normal limits Nausea and Vomiting: within normal limits Pain: within normal limits
[2017-02-02] MEDS: METOPROLOL TARTRATE 25 MG TABLET PO SCH ×2 (08:52→20:36)
[2017-02-02] MEDS: GLIMEPIRIDE 2 MG TABLET PO SCH (08:52)
[2017-02-02] MEDS: CHLORHEXIDINE 0.12% ORAL RINSE 60 ML BOTTLE SWISH/SPIT SCH ×2 (08:52→20:36)
[2017-02-02] MEDS: CAPTOPRIL 6.25 MG TABLET PO SCH ×3 (08:52→20:36)
[2017-02-02] MEDS: CEFUROXIME INJ 1,500 MG in SODIUM CHLORIDE 0.9% 100 ML IV SCH ×2 (09:18→20:37)
--- NOTE | 2017-02-02 10:30 | Cardiology Progress Note ---
Assessment and Plan - Time spent with patient Time spent with patient: Less than 30 minutes (1) Coronary artery disease Status: Acute Assessment and plan: See plan of care listed below. Current Visit: Yes (2) Hypertension Status: Chronic Assessment and plan: See plan of care listed below. Current Visit: Yes (3) Diabetes mellitus Status: Chronic Assessment and plan: See plan of care listed below. Current Visit: Yes (4) Hyperlipidemia Status: Chronic Assessment and plan: See plan of care listed below. Current Visit: Yes Cardiology - PN: Subj Interval history: Acute Care Physician: new to Dr. Cardona SUMMARY: Mr. Matos is a 71-year-old WM who is known to cardiology. He is admitted to the hospital with sudden onset chest pain which woke him up from sleep, not typical for angina. His EKG and cardiac biomarkers have been unremarkable. He is quite active and participates in multiple sports activities without exertional issues. He had an abnormal stress test and underwent cardiac catheterization which revealed severe 3 vessel coronary artery disease. He was referred to Dr. Rose for CABG and is planned for surgery on 02/01/17. 2016: Mr. Matos is seen post op day #1 from CABG. He is currently stable. Not currently requiring vasopressors. Mediastinal chest tubes are intact. Captopril, metoprolol, crestor have been resumed. We will continue to follow post operatively. Dr. Ingram to follow with further plan and addendum. IMPRESSION/PLAN: 1. CORONARY ARTERY DISEASE: Patient is post operative day #1 from CABG x3 with HESS to diagonal, SVG to obtuse marginal, and SVG to right PDA. 2. HYPERTENSION: Continue captopril, metoprolol. Currently hemodynamically stable. 3. DIABETES MELLITUS: He is on Accu-Cheks with insulin PRN. 4. HYPERLIPIDEMIA: LDL 96. Continue lipid lowering agent. Exam (Progress Note) - Constitutional Vitals: Period Temp Pulse Resp BP Sys/Espinal Pulse Ox Last 24 Hr 97.1 F-99.0 F 61-102 10-20 81-175/45-84 92-100 Exam: General appearance: Appears well. Pleasant and cooperative. Overweight, no acute distress. Head exam: Present: normal inspection, normocephalic, atraumatic. Absent: hematoma, laceration Eye exam: Present: EOMI. Absent: conjunctival injection, nystagmus, periorbital swelling, scleral icterus, laceration to eyelids, jaundice Pupils: Present: PERRL. Absent: constricted, dilated, fixed, irregular, unequal ENT exam: Present: normal exam, normal external ear exam, mucous membranes moist. Neck exam: Present: normal inspection, midline trachea. Right subclavian [place] catheter intact. Absent: masses, lymphadenopathy, tenderness, thyromegaly, carotid bruit Respiratory exam: Present: clear to auscultation bilaterally. Mediastinal chest tubes intact. Absent: accessory muscle use, chest wall tenderness, rales, rhonchi, wheezing. Cardiovascular exam: Present: regular rate and rhythm. Midsternal surgical dressing dry and intact. Absent: gallop, JVD, rubs, murmur GI/Abdominal exam: Present: normal bowel sounds, soft. Absent: distended, firm , hernia, mass, tenderness. Extremities exam: Present: Normal Gait, No Clubbing, No Cyanosis, Upper Extr. Pulses 2+, Lower Extr. Pulses 2+, No edema. Dressings to BLE dry and intact. Capillary refill less than 3 seconds. Musculoskeletal: Present: No Fluid Collection, No Pain, Normal Range of Motion Back exam: Present: normal inspection. Absent: muscle spasm, vertebral tenderness Neurological exam: Present: awake, alert, oriented to person and place, Moves all extremities well without hemiparesis or paralysis. Grossly intact without resting or essential tremor Psychiatric exam: Present: normal affect, normal mood Skin exam: Present: normal color, warm, dry, intact. Absent: cyanosis, diaphoretic, rash, urticaria Result/EKG - Labs CBC & BMP: 02/02/17 03:00 02/02/17 03:00 Lab Results: I have reviewed the past 24 hour labs Labs: Laboratory Results - last 24 hr 01/31/17 02/01/17 02/01/17 05:15 10:40 11:10 WBC RBC Hgb Hct MCV MCH MCHC RDW Plt Count MPV Neut % (Auto) Lymph % (Auto) Amelia % (Auto) Eos % (Auto) Baso % (Auto) Neut # (Auto) Lymph # (Auto) Amelia # (Auto) Eos # (Auto) Baso # (Auto) Total Counted Immature Gran % Nucleated RBC % Immature Gran # Segmented Neutrophils Band Neutrophils Lymphocytes Monocytes Nucleated RBCs # Platelet Estimate Immature Plt Fraction Anisocytosis Macrocytosis Ovalocytes INR PT Patient/Control Mix Circ Anticoag PTT Patient Temperature 34 34 ABG pH ABG pH at Pt Temp 7.421 7.446 ABG pCO2 ABG pCO2 at Pt Temp 36.5 32.7 ABG pO2 ABG pO2 at Pt Temp 39.8 39.7 ABG HCO3 ABG Total CO2 ABG O2 Saturation ABG Base Excess ABG Sodium 136 139 VBG pH 7.377 7.402 VBG pCO2 42.2 37.8 L VBG pO2 48.9 H 48.8 H VBG HCO3 23.9 L 23.4 L VBG Total CO2 23.0 21.7 VBG O2 Saturation 84.3 84.7 VBG Base Excess -0.4 L -1.0 L Hemoglobin 8.9 L D 9.1 L Hematocrit 27.6 L 28.3 L Potassium 5.1 4.1 Glucose 357 H 288 H Ionized Calcium FiO2 80.00 80.00 Sodium Chloride Carbon Dioxide Anion Gap BUN Creatinine GFR Calculation BUN/Creatinine Ratio POC Glucose Calculated Osmolality Calcium Venous Ioniz Calcium 0.90 L 0.94 L Magnesium Total Bilirubin Direct Bilirubin AST ALT Alkaline Phosphatase Total Creatine Kinase CK-MB (CK-2) CK and CKMB Interp Troponin I Total Protein Albumin Globulin Albumin/Globulin Ratio Blood Type A POSITIVE Antibody Screen Negative Crossmatch See Detail 02/01/17 02/01/17 02/01/17 12:12 12:20 13:10 WBC 10.4 D RBC 3.57 L Hgb 12.5 L Hct 35.7 L MCV 100.0 MCH 35 H MCHC 35.0 RDW 13.2 Plt Count 87 L 110 L D MPV 11.2 Neut % (Auto) 87.4 H Lymph % (Auto) 9.2 L Amelia % (Auto) 2.5 Eos % (Auto) 0.3 Baso % (Auto) 0.2 Neut # (Auto) 9.1 H Lymph # (Auto) 1.0 L Amelia # (Auto) 0.3 Eos # (Auto) 0.0 Baso # (Auto) 0.0 Total Counted Immature Gran % 0.4 Nucleated RBC % 0.0 Immature Gran # 0.04 Segmented Neutrophils Band Neutrophils Lymphocytes Monocytes Nucleated RBCs # 0.00 Platelet Estimate Immature Plt Fraction 0.0 Anisocytosis Macrocytosis Ovalocytes INR PT Patient/Control Mix Circ Anticoag PTT Patient Temperature 37 ABG pH 7.331 L ABG pH at Pt Temp 7.331 ABG pCO2 44.7 ABG pCO2 at Pt Temp 44.7 ABG pO2 133.0 H ABG pO2 at Pt Temp 133.0 ABG HCO3 22.4 ABG Total CO2 21.5 L ABG O2 Saturation 98.4 ABG Base Excess -2.4 ABG Sodium 142 VBG pH VBG pCO2 VBG pO2 VBG HCO3 VBG Total CO2 VBG O2 Saturation VBG Base Excess Hemoglobin 10.6 L Hematocrit 32.7 L Potassium 3.6 Glucose 225 H Ionized Calcium 1.24 FiO2 Sodium Chloride Carbon Dioxide Anion Gap BUN Creatinine GFR Calculation BUN/Creatinine Ratio POC Glucose Calculated Osmolality Calcium Venous Ioniz Calcium Magnesium Total Bilirubin Direct Bilirubin AST ALT Alkaline Phosphatase Total Creatine Kinase CK-MB (CK-2) CK and CKMB Interp Troponin I Total Protein Albumin Globulin Albumin/Globulin Ratio Blood Type Antibody Screen Crossmatch 02/01/17 02/01/17 02/01/17 13:10 13:10 13:10 WBC RBC Hgb Hct MCV MCH MCHC RDW Plt Count MPV Neut % (Auto) Lymph % (Auto) Amelia % (Auto) Eos % (Auto) Baso % (Auto) Neut # (Auto) Lymph # (Auto) Amelia # (Auto) Eos # (Auto) Baso # (Auto) Total Counted Immature Gran % Nucleated RBC % Immature Gran # Segmented Neutrophils Band Neutrophils Lymphocytes Monocytes Nucleated RBCs # Platelet Estimate Immature Plt Fraction Anisocytosis Macrocytosis Ovalocytes INR 1.3 PT Patient/Control Mix 13.7 D Circ Anticoag PTT 28.5 Patient Temperature ABG pH ABG pH at Pt Temp ABG pCO2 ABG pCO2 at Pt Temp ABG pO2 ABG pO2 at Pt Temp ABG HCO3 ABG Total CO2 ABG O2 Saturation ABG Base Excess ABG Sodium VBG pH VBG pCO2 VBG pO2 VBG HCO3 VBG Total CO2 VBG O2 Saturation VBG Base Excess Hemoglobin Hematocrit Potassium 4.2 Glucose 220 H Ionized Calcium FiO2 Sodium 147 H Chloride 113 H Carbon Dioxide 24 Anion Gap 14.2 BUN 17 Creatinine 1.20 GFR Calculation 65 BUN/Creatinine Ratio 14.00 POC Glucose Calculated Osmolality 300.4 Calcium 8.5 Venous Ioniz Calcium Magnesium 2.4 Total Bilirubin 1.70 H Direct Bilirubin AST 41 H ALT 29 Alkaline Phosphatase 74 Total Creatine Kinase 371 H CK-MB (CK-2) 27.6 H CK and CKMB Interp 7.4 Troponin I 7.790 H Total Protein 5.7 L Albumin 3.4 Globulin 2.3 Albumin/Globulin Ratio 1.4 Blood Type Antibody Screen Crossmatch 02/01/17 02/01/17 02/01/17 13:11 14:47 15:58 WBC RBC Hgb Hct MCV MCH MCHC RDW Plt Count MPV Neut % (Auto) Lymph % (Auto) Amelia % (Auto) Eos % (Auto) Baso % (Auto) Neut # (Auto) Lymph # (Auto) Amelia # (Auto) Eos # (Auto) Baso # (Auto) Total Counted Immature Gran % Nucleated RBC % Immature Gran # Segmented Neutrophils Band Neutrophils Lymphocytes Monocytes Nucleated RBCs # Platelet Estimate Immature Plt Fraction Anisocytosis Macrocytosis Ovalocytes INR PT Patient/Control Mix Circ Anticoag PTT Patient Temperature ABG pH 7.480 H 7.513 H ABG pH at Pt Temp ABG pCO2 28.4 L 25.2 L ABG pCO2 at Pt Temp ABG pO2 97.0 H 118.7 H ABG pO2 at Pt Temp ABG HCO3 20.7 19.8 L ABG Total CO2 21.5 L 20.6 L ABG O2 Saturation 97.7 98.2 ABG Base Excess -1.7 -1.7 ABG Sodium VBG pH VBG pCO2 VBG pO2 VBG HCO3 VBG Total CO2 VBG O2 Saturation VBG Base Excess Hemoglobin 13.0 L 12.8 L Hematocrit 38.0 L 38.0 L Potassium 3.9 3.6 Glucose 202 H 158 H Ionized Calcium FiO2 Sodium Chloride Carbon Dioxide Anion Gap BUN Creatinine GFR Calculation BUN/Creatinine Ratio POC Glucose 138 H Calculated Osmolality Calcium Venous Ioniz Calcium Magnesium Total Bilirubin Direct Bilirubin AST ALT Alkaline Phosphatase Total Creatine Kinase CK-MB (CK-2) CK and CKMB Interp Troponin I Total Protein Albumin Globulin Albumin/Globulin Ratio Blood Type Antibody Screen Crossmatch 02/01/17 02/01/17 02/01/17 16:20 17:12 18:20 WBC RBC Hgb Hct MCV MCH MCHC RDW Plt Count MPV Neut % (Auto) Lymph % (Auto) Amelia % (Auto) Eos % (Auto) Baso % (Auto) Neut # (Auto) Lymph # (Auto) Amelia # (Auto) Eos # (Auto) Baso # (Auto) Total Counted Immature Gran % Nucleated RBC % Immature Gran # Segmented Neutrophils Band Neutrophils Lymphocytes Monocytes Nucleated RBCs # Platelet Estimate Immature Plt Fraction Anisocytosis Macrocytosis Ovalocytes INR PT Patient/Control Mix Circ Anticoag PTT Patient Temperature ABG pH 7.508 H 7.431 ABG pH at Pt Temp ABG pCO2 26.8 L 34.0 L ABG pCO2 at Pt Temp ABG pO2 131.0 H 107.2 H ABG pO2 at Pt Temp ABG HCO3 24.0 22.1 ABG Total CO2 18.8 L 23.2 ABG O2 Saturation 99.0 97.5 ABG Base Excess -0.5 -1.6 ABG Sodium VBG pH 7.461 VBG pCO2 31.1 L VBG pO2 29.5 VBG HCO3 23.0 L VBG Total CO2 20.2 VBG O2 Saturation 57.3 VBG Base Excess -0.9 L Hemoglobin 11.9 L 11.3 L Hematocrit 36.7 L 33.0 L Potassium 4.0 3.9 Glucose 136 H 107 H Ionized Calcium FiO2 21.00 Sodium Chloride Carbon Dioxide Anion Gap BUN Creatinine GFR Calculation BUN/Creatinine Ratio POC Glucose Calculated Osmolality Calcium Venous Ioniz Calcium Magnesium Total Bilirubin Direct Bilirubin AST ALT Alkaline Phosphatase Total Creatine Kinase CK-MB (CK-2) CK and CKMB Interp Troponin I Total Protein Albumin Globulin Albumin/Globulin Ratio Blood Type Antibody Screen Crossmatch 02/01/17 02/01/17 02/01/17 19:05 19:56 20:13 WBC RBC Hgb Hct MCV MCH MCHC RDW Plt Count MPV Neut % (Auto) Lymph % (Auto) Amelia % (Auto) Eos % (Auto) Baso % (Auto) Neut # (Auto) Lymph # (Auto) Amelia # (Auto) Eos # (Auto) Baso # (Auto) Total Counted Immature Gran % Nucleated RBC % Immature Gran # Segmented Neutrophils Band Neutrophils Lymphocytes Monocytes Nucleated RBCs # Platelet Estimate Immature Plt Fraction Anisocytosis Macrocytosis Ovalocytes INR PT Patient/Control Mix Circ Anticoag PTT Patient Temperature ABG pH ABG pH at Pt Temp ABG pCO2 ABG pCO2 at Pt Temp ABG pO2 ABG pO2 at Pt Temp ABG HCO3 ABG Total CO2 ABG O2 Saturation ABG Base Excess ABG Sodium VBG pH 7.418 VBG pCO2 35.4 L VBG pO2 34.7 VBG HCO3 22.9 L VBG Total CO2 20.9 VBG O2 Saturation 66.4 VBG Base Excess -1.2 L Hemoglobin Hematocrit Potassium Glucose Ionized Calcium FiO2 21.00 Sodium Chloride Carbon Dioxide Anion Gap BUN Creatinine GFR Calculation BUN/Creatinine Ratio POC Glucose 121 H 127 H Calculated Osmolality Calcium Venous Ioniz Calcium Magnesium Total Bilirubin Direct Bilirubin AST ALT Alkaline Phosphatase Total Creatine Kinase CK-MB (CK-2) CK and CKMB Interp Troponin I Total Protein Albumin Globulin Albumin/Globulin Ratio Blood Type Antibody Screen Crossmatch 02/01/17 02/01/17 02/01/17 20:54 21:51 21:52 WBC RBC Hgb Hct MCV MCH MCHC RDW Plt Count MPV Neut % (Auto) Lymph % (Auto) Amelia % (Auto) Eos % (Auto) Baso % (Auto) Neut # (Auto) Lymph # (Auto) Amelia # (Auto) Eos # (Auto) Baso # (Auto) Total Counted Immature Gran % Nucleated RBC % Immature Gran # Segmented Neutrophils Band Neutrophils Lymphocytes Monocytes Nucleated RBCs # Platelet Estimate Immature Plt Fraction Anisocytosis Macrocytosis Ovalocytes INR PT Patient/Control Mix Circ Anticoag PTT Patient Temperature ABG pH 7.376 ABG pH at Pt Temp ABG pCO2 37.6 ABG pCO2 at Pt Temp ABG pO2 148.0 H ABG pO2 at Pt Temp ABG HCO3 22.1 ABG Total CO2 20.0 L ABG O2 Saturation 98.8 ABG Base Excess -2.8 L ABG Sodium VBG pH VBG pCO2 VBG pO2 VBG HCO3 VBG Total CO2 VBG O2 Saturation VBG Base Excess Hemoglobin 10.3 L Hematocrit 31.9 L Potassium 4.4 Glucose 136 H Ionized Calcium FiO2 Sodium Chloride Carbon Dioxide Anion Gap BUN Creatinine GFR Calculation BUN/Creatinine Ratio POC Glucose 123 H Calculated Osmolality Calcium Venous Ioniz Calcium Magnesium Total Bilirubin Direct Bilirubin AST ALT Alkaline Phosphatase Total Creatine Kinase 1019 H D CK-MB (CK-2) 81.7 H D CK and CKMB Interp 8.0 Troponin I 21.000 H D Total Protein Albumin Globulin Albumin/Globulin Ratio Blood Type Antibody Screen Crossmatch 02/01/17 02/01/17 02/02/17 23:07 23:52 00:55 WBC RBC Hgb Hct MCV MCH MCHC RDW Plt Count MPV Neut % (Auto) Lymph % (Auto) Amelia % (Auto) Eos % (Auto) Baso % (Auto) Neut # (Auto) Lymph # (Auto) Amelia # (Auto) Eos # (Auto) Baso # (Auto) Total Counted Immature Gran % Nucleated RBC % Immature Gran # Segmented Neutrophils Band Neutrophils Lymphocytes Monocytes Nucleated RBCs # Platelet Estimate Immature Plt Fraction Anisocytosis Macrocytosis Ovalocytes INR PT Patient/Control Mix Circ Anticoag PTT Patient Temperature ABG pH 7.418 7.486 H ABG pH at Pt Temp ABG pCO2 31.1 L 28.3 L ABG pCO2 at Pt Temp ABG pO2 158.5 H 131.7 H ABG pO2 at Pt Temp ABG HCO3 19.6 L 20.9 ABG Total CO2 20.6 L 21.8 L ABG O2 Saturation 98.5 98.2 ABG Base Excess -4.0 L -1.6 ABG Sodium VBG pH VBG pCO2 VBG pO2 VBG HCO3 VBG Total CO2 VBG O2 Saturation VBG Base Excess Hemoglobin 11.2 L 10.7 L Hematocrit 33.0 L 31.0 L Potassium 4.3 4.3 Glucose 139 H 150 H Ionized Calcium FiO2 Sodium Chloride Carbon Dioxide Anion Gap BUN Creatinine GFR Calculation BUN/Creatinine Ratio POC Glucose 163 H Calculated Osmolality Calcium Venous Ioniz Calcium Magnesium Total Bilirubin Direct Bilirubin AST ALT Alkaline Phosphatase Total Creatine Kinase CK-MB (CK-2) CK and CKMB Interp Troponin I Total Protein Albumin Globulin Albumin/Globulin Ratio Blood Type Antibody Screen Crossmatch 02/02/17 02/02/17 02/02/17 02:00 03:00 03:00 WBC 12.2 H RBC 2.89 L Hgb 10.1 L D Hct 29.6 L MCV 102.4 H MCH 35 H MCHC 34.1 RDW 13.4 Plt Count 77 L D MPV 12.2 H Neut % (Auto) 88.9 H Lymph % (Auto) 6.5 L Amelia % (Auto) 4.1 Eos % (Auto) 0.0 Baso % (Auto) 0.0 Neut # (Auto) 10.9 H Lymph # (Auto) 0.8 L Amelia # (Auto) 0.5 Eos # (Auto) 0.0 Baso # (Auto) 0.0 Total Counted 100 Immature Gran % 0.5 Nucleated RBC % 0.0 Immature Gran # 0.06 Segmented Neutrophils 88 H Band Neutrophils 3 Lymphocytes 7 L Monocytes 2 Nucleated RBCs # 0.00 Platelet Estimate Decreased Immature Plt Fraction 5.2 Anisocytosis 2+ Macrocytosis 2+ Ovalocytes 1+ INR PT Patient/Control Mix Circ Anticoag PTT Patient Temperature ABG pH 7.431 ABG pH at Pt Temp ABG pCO2 33.7 L ABG pCO2 at Pt Temp ABG pO2 112.0 H ABG pO2 at Pt Temp ABG HCO3 23.3 ABG Total CO2 20.3 L ABG O2 Saturation 98.5 ABG Base Excess -1.3 ABG Sodium VBG pH VBG pCO2 VBG pO2 VBG HCO3 VBG Total CO2 VBG O2 Saturation VBG Base Excess Hemoglobin 10.0 L Hematocrit 31.0 L Potassium 4.2 4.6 Glucose 155 H 143 H Ionized Calcium FiO2 Sodium 144 Chloride 112 H Carbon Dioxide 24 Anion Gap 12.6 BUN 18 Creatinine 1.20 GFR Calculation 65 BUN/Creatinine Ratio 15.00 POC Glucose Calculated Osmolality 289.8 Calcium 8.2 L Venous Ioniz Calcium Magnesium 2.1 Total Bilirubin 1.00 Direct Bilirubin 0.330 H AST 151 H ALT 35 Alkaline Phosphatase 48 Total Creatine Kinase CK-MB (CK-2) CK and CKMB Interp Troponin I Total Protein 5.9 L Albumin 4.0 Globulin 1.9 L Albumin/Globulin Ratio 2.1 Blood Type Antibody Screen Crossmatch 02/02/17 02/02/17 02/02/17 03:00 03:04 03:12 WBC RBC Hgb Hct MCV MCH MCHC RDW Plt Count MPV Neut % (Auto) Lymph % (Auto) Amelia % (Auto) Eos % (Auto) Baso % (Auto) Neut # (Auto) Lymph # (Auto) Amelia # (Auto) Eos # (Auto) Baso # (Auto) Total Counted Immature Gran % Nucleated RBC % Immature Gran # Segmented Neutrophils Band Neutrophils Lymphocytes Monocytes Nucleated RBCs # Platelet Estimate Immature Plt Fraction Anisocytosis Macrocytosis Ovalocytes INR PT Patient/Control Mix Circ Anticoag PTT Patient Temperature ABG pH ABG pH at Pt Temp ABG pCO2 ABG pCO2 at Pt Temp ABG pO2 ABG pO2 at Pt Temp ABG HCO3 ABG Total CO2 ABG O2 Saturation ABG Base Excess ABG Sodium VBG pH 7.418 VBG pCO2 37.8 L VBG pO2 27.8 VBG HCO3 23.9 L VBG Total CO2 25.0 VBG O2 Saturation 65.9 VBG Base Excess -0.4 L Hemoglobin Hematocrit Potassium Glucose Ionized Calcium FiO2 Sodium Chloride Carbon Dioxide Anion Gap BUN Creatinine GFR Calculation BUN/Creatinine Ratio POC Glucose 155 H Calculated Osmolality Calcium Venous Ioniz Calcium Magnesium Total Bilirubin Direct Bilirubin AST ALT Alkaline Phosphatase Total Creatine Kinase 1431 H D CK-MB (CK-2) 121.7 H D CK and CKMB Interp 8.5 Troponin I 30.100 H D Total Protein Albumin Globulin Albumin/Globulin Ratio Blood Type Antibody Screen Crossmatch 02/02/17 02/02/17 02/02/17 04:11 05:11 05:30 WBC RBC Hgb Hct MCV MCH MCHC RDW Plt Count MPV Neut % (Auto) Lymph % (Auto) Amelia % (Auto) Eos % (Auto) Baso % (Auto) Neut # (Auto) Lymph # (Auto) Amelia # (Auto) Eos # (Auto) Baso # (Auto) Total Counted Immature Gran % Nucleated RBC % Immature Gran # Segmented Neutrophils Band Neutrophils Lymphocytes Monocytes Nucleated RBCs # Platelet Estimate Immature Plt Fraction Anisocytosis Macrocytosis Ovalocytes INR PT Patient/Control Mix Circ Anticoag PTT Patient Temperature ABG pH 7.412 ABG pH at Pt Temp ABG pCO2 33.7 L ABG pCO2 at Pt Temp ABG pO2 136.8 H ABG pO2 at Pt Temp ABG HCO3 21.0 ABG Total CO2 22.0 L ABG O2 Saturation 98.2 ABG Base Excess -3.0 L ABG Sodium VBG pH VBG pCO2 VBG pO2 VBG HCO3 VBG Total CO2 VBG O2 Saturation VBG Base Excess Hemoglobin 11.3 L Hematocrit 33.0 L Potassium 4.3 Glucose 140 H Ionized Calcium FiO2 Sodium Chloride Carbon Dioxide Anion Gap BUN Creatinine GFR Calculation BUN/Creatinine Ratio POC Glucose 164 H 145 H Calculated Osmolality Calcium Venous Ioniz Calcium Magnesium Total Bilirubin Direct Bilirubin AST ALT Alkaline Phosphatase Total Creatine Kinase CK-MB (CK-2) CK and CKMB Interp Troponin I Total Protein Albumin Globulin Albumin/Globulin Ratio Blood Type Antibody Screen Crossmatch 02/02/17 06:49 WBC RBC Hgb Hct MCV MCH MCHC RDW Plt Count MPV Neut % (Auto) Lymph % (Auto) Amelia % (Auto) Eos % (Auto) Baso % (Auto) Neut # (Auto) Lymph # (Auto) Amelia # (Auto) Eos # (Auto) Baso # (Auto) Total Counted Immature Gran % Nucleated RBC % Immature Gran # Segmented Neutrophils Band Neutrophils Lymphocytes Monocytes Nucleated RBCs # Platelet Estimate Immature Plt Fraction Anisocytosis Macrocytosis Ovalocytes INR PT Patient/Control Mix Circ Anticoag PTT Patient Temperature ABG pH 7.320 L ABG pH at Pt Temp ABG pCO2 40.7 ABG pCO2 at Pt Temp ABG pO2 122.7 H ABG pO2 at Pt Temp ABG HCO3 20.5 ABG Total CO2 21.7 L ABG O2 Saturation 98.0 ABG Base Excess -5.2 L ABG Sodium VBG pH VBG pCO2 VBG pO2 VBG HCO3 VBG Total CO2 VBG O2 Saturation VBG Base Excess Hemoglobin 11.7 L Hematocrit 34.0 L Potassium 4.0 Glucose 161 H Ionized Calcium FiO2 Sodium Chloride Carbon Dioxide Anion Gap BUN Creatinine GFR Calculation BUN/Creatinine Ratio POC Glucose Calculated Osmolality Calcium Venous Ioniz Calcium Magnesium Total Bilirubin Direct Bilirubin AST ALT Alkaline Phosphatase Total Creatine Kinase CK-MB (CK-2) CK and CKMB Interp Troponin I Total Protein Albumin Globulin Albumin/Globulin Ratio Blood Type Antibody Screen Crossmatch - EKG EKG results: interpreted by me, sinus rhythm Quality Measures - VTE Contraindication to Pharmacological VTE Prophylaxis: Already on Theraputic Agent , No Prophylaxis Needed Specialty Discharge - Follow Up or Referrals
--- NOTE | 2017-02-02 10:44 | Hospitalist Progress Note ---
Assessment and Plan (1) Chest pain Status: Acute Assessment and plan: The patient is postoperative day #1 from bypass surgery. Glucose is well controlled on insulin infusion. Current Visit: Yes (2) Hypertension Status: Chronic Current Visit: Yes (3) Diabetes mellitus Status: Chronic Current Visit: Yes Hospitalist: Subjective Interval history: The patient is successfully weaned from the ventilator and is breathing comfortably. The patient is able to move all extremities. The patient awakens and appears to recognize me. Chest tubes remain in place. Exam - Constitutional Vitals: Period Temp Pulse Resp BP Sys/Espinal Pulse Ox Last 24 Hr 97.1 F-99.0 F 61-102 10-20 81-175/45-84 92-100 Exam: Constitutional System: Mild distress. No tremulousness. Head: Normocephalic, atraumatic. Ears, Nose and Throat System: No evidence of Otitis or Mastoiditis. No epistaxis or discharge Eyes System: Pupils equal, round, and reactive. Extraocular muscles intact. Neck: Supple, without adenopathy, No jugular venous distention. No thyromegaly , neck mass, or prior surgery apparent. Respiratory System: Chest clear to auscultation. Cardiovascular System: Heart with regular rate and rhythm. There is a 2/6 systolic murmur. Chest tubes are in place GI System: Abdomen soft, nontender. Normo active bowel sounds present. Results - Labs CBC & BMP: 02/02/17 03:00 02/02/17 03:00 Lab Results: I have reviewed the past 24 hour labs Quality Measures - VTE Contraindication to Pharmacological VTE Prophylaxis: Already on Theraputic Agent , No Prophylaxis Needed Specialty Discharge - Follow Up or Referrals
[2017-02-02] MEDS ORDERED: FUROSEMIDE 40 MG/4 ML VIAL IV ONE (10:59)
[2017-02-02] MEDS: INSULIN REGULAR DRIP 100 ML IV SCH (14:15)
[2017-02-02] MEDS: SODIUM CHLORIDE 0.45% 1,000 ML IV SCH ×2 (14:15→18:28)
[2017-02-02 15:01] LABS: CKMB % 7.1 %
[2017-02-02 15:09] LABS: Troponin I Only 24.3 NG/ML (0.00-0.045)
[2017-02-02] MEDS ORDERED: HEPARIN/NACL 0.9% 2 UNITS/ML 500 ML IV ONE (15:18)
[2017-02-02 15:20] LABS: VBG HCO3 24.6 MEQ/L (24-28); VBG Oxygen Saturation 61.2 %; VBG PCO2 48.4 MMHG (41-51); VBG PH 7.355; VBG PO2 33.5 MMHG (17-40)
[2017-02-02] MEDS: MORPHINE 2 MG/1 ML SYRINGE IV PRN ×3 (15:42→23:40)
[2017-02-02] MEDS: INSULIN REGULAR 100 UNIT/ML SUBCUT SCH ×2 (18:33→20:35)
[2017-02-02] MEDS: ROSUVASTATIN 20 MG TABLET PO SCH (20:36)
[2017-02-02] MEDS ORDERED: KETOROLAC 30 MG/1 ML VIAL IV SCH (21:00)
[2017-02-03 04:06] LABS: ABG Base Excess 3.3 MMOL/L (-2.5-2.5); ABG HCO3 27.4 MMOL/L (20-26); ABG Oxygen Saturation 97.8 % (95-100); ABG PCO2 41.2 MM HG (35-48); ABG PH 7.437 (7.35-7.45); ABG PO2 95.8 MM HG (80-95); ABG TCO2 24.8 MMOL/L (23-27)
[2017-02-03 04:16] LABS: Basophils % 0.1 % (0.0-0.8); Hemoglobin 10.6 GM/DL (14.0-18.0); Immature Granulocytes % 0.9 %; Immature Granulocytes Absolute 0.13 #; Lymphocytes # 1.2 10*3/uL (1.4-4.0); Lymphocytes % 7.9 % (21.2-54.2); Mean Corpuscular HGB Conc 34.2 GM/DL (32-36); Mean Corpuscular Hemoglobin 34 PG (27-34); Mean Corpuscular Volume 100.6 FL (87-102); Mean Platelet Volume 12.5 FL (9.6-12.0); Monocytes % 6.4 % (1.7-12.7); Neutrophils # 12.7 10*3/uL (1.4-7.4); Neutrophils % 84.7 % (38.7-73.9); Red Blood Count 3.08 MC/CUMM (3.8-5.5); Red Cell Distribution Width 15.9 % (9.3-17.3)
[2017-02-03 04:24] LABS: Platelet Count 59 T/CUMM (130-400)
[2017-02-03 04:47] LABS: Albumin 3.9 G/DL (3.4-5.0); Bilirubin,Direct 0.22 MG/DL (0.0-0.20); Bilirubin,Total 0.7 MG/DL (0.2-1.0); Calcium 8.2 MG/DL (8.5-10.1); Magnesium 2.3 MG/DL (1.8-2.4); Potassium 4.3 MMOL/L (3.5-5.1); Total Protein 5.9 G/DL (6.4-8.3)
[2017-02-03 06:29] LABS: Lymphocytes 7 % (20-55); Segmented Neutrophils 89 % (50-85)
[2017-02-03 06:30] LABS: Anisocytosis 1+; Hypochromasia 1+; Macrocytosis 1+; Platelet Estimate Decreased
[2017-02-03 06:32] LABS: Total Cells Counted 100
[2017-02-03] MEDS: NITROGLYCERIN DRIP 50 MG/250 ML BOTTLE IV SCH (07:21)
--- NOTE | 2017-02-03 08:04 | Cardiothoracic Progress Note ---
Cardiothoracic Subjective Interval history: Patient is awake alert and extubated. Vital signs have been stable through the night and cardiac output is around 4 L/min. He is breathing comfortably and blood gases have been satisfactory. Chest tube drainage is minimal and the air leak has stopped and the lungs are expanded with the chest tubes clamped. We are going to discontinue his chest tubes and transfer him to telemetry later this morning. Overall his progress is satisfactory. Exam (Progress Note) - Constitutional Vitals: Period Temp Pulse Resp BP Sys/Espinal Pulse Ox Last 24 Hr 98.1 F-99.1 F 68-96 12-20 96-178/53-77 92-100 Result/EKG - Labs CBC & BMP: 02/03/17 03:45 02/03/17 03:45 Labs: Laboratory Results - last 24 hr 01/31/17 02/02/17 02/02/17 05:15 03:12 04:11 WBC RBC Hgb Hct MCV MCH MCHC RDW Plt Count MPV Neut % (Auto) Lymph % (Auto) [place] % (Auto) Eos % (Auto) Baso % (Auto) Neut # (Auto) Lymph # (Auto) [place] # (Auto) Eos # (Auto) Baso # (Auto) Total Counted Immature Gran % Nucleated RBC % Immature Gran # Segmented Neutrophils Lymphocytes Monocytes Nucleated RBCs # Platelet Estimate Immature Plt Fraction Hypochromasia Anisocytosis Macrocytosis ABG pH ABG pCO2 ABG pO2 ABG HCO3 ABG Total CO2 ABG O2 Saturation ABG Base Excess VBG pH VBG pCO2 VBG pO2 VBG HCO3 VBG Total CO2 VBG O2 Saturation VBG Base Excess FiO2 Sodium Potassium Chloride Carbon Dioxide Anion Gap BUN Creatinine GFR Calculation BUN/Creatinine Ratio Glucose POC Glucose 155 H 164 H Calculated Osmolality Calcium Magnesium Total Bilirubin Direct Bilirubin AST ALT Alkaline Phosphatase Total Creatine Kinase CK-MB (CK-2) CK and CKMB Interp Troponin I Total Protein Albumin Globulin Albumin/Globulin Ratio Crossmatch See Detail 02/02/17 02/02/17 02/02/17 05:11 08:55 10:42 WBC RBC Hgb Hct MCV MCH MCHC RDW Plt Count MPV Neut % (Auto) Lymph % (Auto) [place] % (Auto) Eos % (Auto) Baso % (Auto) Neut # (Auto) Lymph # (Auto) [place] # (Auto) Eos # (Auto) Baso # (Auto) Total Counted Immature Gran % Nucleated RBC % Immature Gran # Segmented Neutrophils Lymphocytes Monocytes Nucleated RBCs # Platelet Estimate Immature Plt Fraction Hypochromasia Anisocytosis Macrocytosis ABG pH ABG pCO2 ABG pO2 ABG HCO3 ABG Total CO2 ABG O2 Saturation ABG Base Excess VBG pH VBG pCO2 VBG pO2 VBG HCO3 VBG Total CO2 VBG O2 Saturation VBG Base Excess FiO2 Sodium Potassium Chloride Carbon Dioxide Anion Gap BUN Creatinine GFR Calculation BUN/Creatinine Ratio Glucose POC Glucose 145 H 146 H 121 H Calculated Osmolality Calcium Magnesium Total Bilirubin Direct Bilirubin AST ALT Alkaline Phosphatase Total Creatine Kinase CK-MB (CK-2) CK and CKMB Interp Troponin I Total Protein Albumin Globulin Albumin/Globulin Ratio Crossmatch 02/02/17 02/02/17 02/02/17 14:10 15:10 15:39 WBC RBC Hgb Hct MCV MCH MCHC RDW Plt Count MPV Neut % (Auto) Lymph % (Auto) [place] % (Auto) Eos % (Auto) Baso % (Auto) Neut # (Auto) Lymph # (Auto) [place] # (Auto) Eos # (Auto) Baso # (Auto) Total Counted Immature Gran % Nucleated RBC % Immature Gran # Segmented Neutrophils Lymphocytes Monocytes Nucleated RBCs # Platelet Estimate Immature Plt Fraction Hypochromasia Anisocytosis Macrocytosis ABG pH ABG pCO2 ABG pO2 ABG HCO3 ABG Total CO2 ABG O2 Saturation ABG Base Excess VBG pH 7.355 VBG pCO2 48.4 VBG pO2 33.5 VBG HCO3 24.6 VBG Total CO2 24.7 VBG O2 Saturation 61.2 VBG Base Excess 1.0 FiO2 21.00 Sodium Potassium Chloride Carbon Dioxide Anion Gap BUN Creatinine GFR Calculation BUN/Creatinine Ratio Glucose POC Glucose 198 H Calculated Osmolality Calcium Magnesium Total Bilirubin Direct Bilirubin AST ALT Alkaline Phosphatase Total Creatine Kinase 1841 H D CK-MB (CK-2) 131.2 H D CK and CKMB Interp 7.1 Troponin I 24.300 H Total Protein Albumin Globulin Albumin/Globulin Ratio Crossmatch 02/02/17 02/02/17 02/03/17 17:23 20:20 03:45 WBC 15.0 H RBC 3.08 L Hgb 10.6 L Hct 31.0 L MCV 100.6 MCH 34 MCHC 34.2 RDW 15.9 Plt Count 59 L D MPV 12.5 H Neut % (Auto) 84.7 H Lymph % (Auto) 7.9 L [place] % (Auto) 6.4 Eos % (Auto) 0.0 Baso % (Auto) 0.1 Neut # (Auto) 12.7 H Lymph # (Auto) 1.2 L [place] # (Auto) 1.0 H Eos # (Auto) 0.0 Baso # (Auto) 0.0 Total Counted 100 Immature Gran % 0.9 Nucleated RBC % 0.0 Immature Gran # 0.13 Segmented Neutrophils 89 H Lymphocytes 7 L Monocytes 4 Nucleated RBCs # 0.00 Platelet Estimate Decreased Immature Plt Fraction 0.0 Hypochromasia 1+ Anisocytosis 1+ Macrocytosis 1+ ABG pH ABG pCO2 ABG pO2 ABG HCO3 ABG Total CO2 ABG O2 Saturation ABG Base Excess VBG pH VBG pCO2 VBG pO2 VBG HCO3 VBG Total CO2 VBG O2 Saturation VBG Base Excess FiO2 Sodium Potassium 4.6 Chloride Carbon Dioxide Anion Gap BUN Creatinine GFR Calculation BUN/Creatinine Ratio Glucose POC Glucose 242 H Calculated Osmolality Calcium Magnesium Total Bilirubin Direct Bilirubin AST ALT Alkaline Phosphatase Total Creatine Kinase CK-MB (CK-2) CK and CKMB Interp Troponin I Total Protein Albumin Globulin Albumin/Globulin Ratio Crossmatch 02/03/17 02/03/17 02/03/17 03:45 03:45 07:23 WBC RBC Hgb Hct MCV MCH MCHC RDW Plt Count MPV Neut % (Auto) Lymph % (Auto) [place] % (Auto) Eos % (Auto) Baso % (Auto) Neut # (Auto) Lymph # (Auto) [place] # (Auto) Eos # (Auto) Baso # (Auto) Total Counted Immature Gran % Nucleated RBC % Immature Gran # Segmented Neutrophils Lymphocytes Monocytes Nucleated RBCs # Platelet Estimate Immature Plt Fraction Hypochromasia Anisocytosis Macrocytosis ABG pH 7.437 ABG pCO2 41.2 ABG pO2 95.8 H ABG HCO3 27.4 H ABG Total CO2 24.8 ABG O2 Saturation 97.8 ABG Base Excess 3.3 H VBG pH VBG pCO2 VBG pO2 VBG HCO3 VBG Total CO2 VBG O2 Saturation VBG Base Excess FiO2 Sodium 143 Potassium 4.3 Chloride 108 H Carbon Dioxide 30 Anion Gap 9.3 BUN 24 H Creatinine 0.90 GFR Calculation 93 BUN/Creatinine Ratio 26.00 H Glucose 167 H POC Glucose 166 H Calculated Osmolality 292.0 Calcium 8.2 L Magnesium 2.3 Total Bilirubin 0.70 Direct Bilirubin 0.220 H AST 159 H ALT 40 Alkaline Phosphatase 53 Total Creatine Kinase CK-MB (CK-2) CK and CKMB Interp Troponin I Total Protein 5.9 L Albumin 3.9 Globulin 2.0 L Albumin/Globulin Ratio 1.9 Crossmatch Quality Measures - VTE Contraindication to Pharmacological VTE Prophylaxis: Already on Theraputic Agent , No Prophylaxis Needed Specialty Discharge - Follow Up or Referrals
--- NOTE | 2017-02-03 08:24 | Cardiology Progress Note ---
Assessment and Plan (1) Unstable angina Status: Acute Assessment and plan: 1. Postop day #2 after CABG alert and oriented without complaint and hemodynamically stable 2. No evidence of dysrhythmia 3. Thrombocytopenia consistent with postoperative state 4. Given troponin elevation will check follow-up EKG; HESS was placed in diagonal row that LAD likely because the LAD has a significant intramyocardial course; the LAD would be somewhat difficult to intervene upon percutaneously given its smaller size and bridging. Continue medical therapy with high intensity statin, beta-tono, and antiplatelet therapy. Current Visit: Yes (2) Hypertension Status: Chronic Current Visit: Yes (3) Coronary artery disease Status: Acute Current Visit: Yes Cardiology - PN: Subj Interval history: Mr. Matos is alert and oriented has a good sense of humor. He denies dyspnea or dizziness. His cardiac output is reasonable given he has a couple days out. He has not had any rhythm problems. Exam (Progress Note) - Constitutional Vitals: Period Temp Pulse Resp BP Sys/Espinal Pulse Ox Last 24 Hr 98.1 F-99.1 F 68-96 12-20 96-178/53-77 92-100 General appearance: normal weight, no acute distress - Head Head exam: Present: normal inspection, normocephalic, atraumatic - Neck Neck exam: Present: normal inspection - Respiratory Respiratory exam: Present: rhonchi. Absent: stridor, wheezes - Cardiovascular Cardiovascular exam: Present: regular rate and rhythm. Absent: diastolic murmur , rubs - GI/Abdominal GI/Abdominal exam: Present: soft. Absent: tenderness - Extremities Exam Extremities exam: Present: other (Vein graft harvest sites look good without edema or exudate.). Absent: edema - Neurological Exam Neurological exam: Present: alert, oriented X3 Result/EKG - Labs CBC & BMP: 02/03/17 03:45 02/03/17 03:45 Labs: Laboratory Results - last 24 hr 01/31/17 02/02/17 02/02/17 05:15 03:12 04:11 WBC RBC Hgb Hct MCV MCH MCHC RDW Plt Count MPV Neut % (Auto) Lymph % (Auto) [place] % (Auto) Eos % (Auto) Baso % (Auto) Neut # (Auto) Lymph # (Auto) [place] # (Auto) Eos # (Auto) Baso # (Auto) Total Counted Immature Gran % Nucleated RBC % Immature Gran # Segmented Neutrophils Lymphocytes Monocytes Nucleated RBCs # Platelet Estimate Immature Plt Fraction Hypochromasia Anisocytosis Macrocytosis ABG pH ABG pCO2 ABG pO2 ABG HCO3 ABG Total CO2 ABG O2 Saturation ABG Base Excess VBG pH VBG pCO2 VBG pO2 VBG HCO3 VBG Total CO2 VBG O2 Saturation VBG Base Excess FiO2 Sodium Potassium Chloride Carbon Dioxide Anion Gap BUN Creatinine GFR Calculation BUN/Creatinine Ratio Glucose POC Glucose 155 H 164 H Calculated Osmolality Calcium Magnesium Total Bilirubin Direct Bilirubin AST ALT Alkaline Phosphatase Total Creatine Kinase CK-MB (CK-2) CK and CKMB Interp Troponin I Total Protein Albumin Globulin Albumin/Globulin Ratio Crossmatch See Detail 02/02/17 02/02/17 02/02/17 05:11 08:55 10:42 WBC RBC Hgb Hct MCV MCH MCHC RDW Plt Count MPV Neut % (Auto) Lymph % (Auto) [place] % (Auto) Eos % (Auto) Baso % (Auto) Neut # (Auto) Lymph # (Auto) [place] # (Auto) Eos # (Auto) Baso # (Auto) Total Counted Immature Gran % Nucleated RBC % Immature Gran # Segmented Neutrophils Lymphocytes Monocytes Nucleated RBCs # Platelet Estimate Immature Plt Fraction Hypochromasia Anisocytosis Macrocytosis ABG pH ABG pCO2 ABG pO2 ABG HCO3 ABG Total CO2 ABG O2 Saturation ABG Base Excess VBG pH VBG pCO2 VBG pO2 VBG HCO3 VBG Total CO2 VBG O2 Saturation VBG Base Excess FiO2 Sodium Potassium Chloride Carbon Dioxide Anion Gap BUN Creatinine GFR Calculation BUN/Creatinine Ratio Glucose POC Glucose 145 H 146 H 121 H Calculated Osmolality Calcium Magnesium Total Bilirubin Direct Bilirubin AST ALT Alkaline Phosphatase Total Creatine Kinase CK-MB (CK-2) CK and CKMB Interp Troponin I Total Protein Albumin Globulin Albumin/Globulin Ratio Crossmatch 02/02/17 02/02/17 02/02/17 14:10 15:10 15:39 WBC RBC Hgb Hct MCV MCH MCHC RDW Plt Count MPV Neut % (Auto) Lymph % (Auto) [place] % (Auto) Eos % (Auto) Baso % (Auto) Neut # (Auto) Lymph # (Auto) [place] # (Auto) Eos # (Auto) Baso # (Auto) Total Counted Immature Gran % Nucleated RBC % Immature Gran # Segmented Neutrophils Lymphocytes Monocytes Nucleated RBCs # Platelet Estimate Immature Plt Fraction Hypochromasia Anisocytosis Macrocytosis ABG pH ABG pCO2 ABG pO2 ABG HCO3 ABG Total CO2 ABG O2 Saturation ABG Base Excess VBG pH 7.355 VBG pCO2 48.4 VBG pO2 33.5 VBG HCO3 24.6 VBG Total CO2 24.7 VBG O2 Saturation 61.2 VBG Base Excess 1.0 FiO2 21.00 Sodium Potassium Chloride Carbon Dioxide Anion Gap BUN Creatinine GFR Calculation BUN/Creatinine Ratio Glucose POC Glucose 198 H Calculated Osmolality Calcium Magnesium Total Bilirubin Direct Bilirubin AST ALT Alkaline Phosphatase Total Creatine Kinase 1841 H D CK-MB (CK-2) 131.2 H D CK and CKMB Interp 7.1 Troponin I 24.300 H Total Protein Albumin Globulin Albumin/Globulin Ratio Crossmatch 02/02/17 02/02/17 02/03/17 17:23 20:20 03:45 WBC 15.0 H RBC 3.08 L Hgb 10.6 L Hct 31.0 L MCV 100.6 MCH 34 MCHC 34.2 RDW 15.9 Plt Count 59 L D MPV 12.5 H Neut % (Auto) 84.7 H Lymph % (Auto) 7.9 L [place] % (Auto) 6.4 Eos % (Auto) 0.0 Baso % (Auto) 0.1 Neut # (Auto) 12.7 H Lymph # (Auto) 1.2 L [place] # (Auto) 1.0 H Eos # (Auto) 0.0 Baso # (Auto) 0.0 Total Counted 100 Immature Gran % 0.9 Nucleated RBC % 0.0 Immature Gran # 0.13 Segmented Neutrophils 89 H Lymphocytes 7 L Monocytes 4 Nucleated RBCs # 0.00 Platelet Estimate Decreased Immature Plt Fraction 0.0 Hypochromasia 1+ Anisocytosis 1+ Macrocytosis 1+ ABG pH ABG pCO2 ABG pO2 ABG HCO3 ABG Total CO2 ABG O2 Saturation ABG Base Excess VBG pH VBG pCO2 VBG pO2 VBG HCO3 VBG Total CO2 VBG O2 Saturation VBG Base Excess FiO2 Sodium Potassium 4.6 Chloride Carbon Dioxide Anion Gap BUN Creatinine GFR Calculation BUN/Creatinine Ratio Glucose POC Glucose 242 H Calculated Osmolality Calcium Magnesium Total Bilirubin Direct Bilirubin AST ALT Alkaline Phosphatase Total Creatine Kinase CK-MB (CK-2) CK and CKMB Interp Troponin I Total Protein Albumin Globulin Albumin/Globulin Ratio Crossmatch 02/03/17 02/03/17 02/03/17 03:45 03:45 07:23 WBC RBC Hgb Hct MCV MCH MCHC RDW Plt Count MPV Neut % (Auto) Lymph % (Auto) [place] % (Auto) Eos % (Auto) Baso % (Auto) Neut # (Auto) Lymph # (Auto) [place] # (Auto) Eos # (Auto) Baso # (Auto) Total Counted Immature Gran % Nucleated RBC % Immature Gran # Segmented Neutrophils Lymphocytes Monocytes Nucleated RBCs # Platelet Estimate Immature Plt Fraction Hypochromasia Anisocytosis Macrocytosis ABG pH 7.437 ABG pCO2 41.2 ABG pO2 95.8 H ABG HCO3 27.4 H ABG Total CO2 24.8 ABG O2 Saturation 97.8 ABG Base Excess 3.3 H VBG pH VBG pCO2 VBG pO2 VBG HCO3 VBG Total CO2 VBG O2 Saturation VBG Base Excess FiO2 Sodium 143 Potassium 4.3 Chloride 108 H Carbon Dioxide 30 Anion Gap 9.3 BUN 24 H Creatinine 0.90 GFR Calculation 93 BUN/Creatinine Ratio 26.00 H Glucose 167 H POC Glucose 166 H Calculated Osmolality 292.0 Calcium 8.2 L Magnesium 2.3 Total Bilirubin 0.70 Direct Bilirubin 0.220 H AST 159 H ALT 40 Alkaline Phosphatase 53 Total Creatine Kinase CK-MB (CK-2) CK and CKMB Interp Troponin I Total Protein 5.9 L Albumin 3.9 Globulin 2.0 L Albumin/Globulin Ratio 1.9 Crossmatch Quality Measures - VTE Contraindication to Pharmacological VTE Prophylaxis: Already on Theraputic Agent , No Prophylaxis Needed Specialty Discharge - Follow Up or Referrals
--- NOTE | 2017-02-03 08:27 | EKG Report ---
Stationary ECG Study [facility] Test Date: 02/03/2017 8:28:41 AM Pat Name: EDU MERA Department: Room: 109 Gender: M Dog[place]: : 1945 Requested by: Wesley Langford Order Number: [id number] Reading MD: BOLIVAR BLACKMON Intervals [place] Rate: 73 P: 73 [place]: 183 QRS: 28 QRSD: 90 T: 5 QT: 341 QTc: 367 Interpretive Statements SINUS RHYTHM POSSIBLE RIGHT VENTRICULAR CONDUCTION DELAY POSSIBLE INFERIOR MYOCARDIAL INFARCTION, OF INDETERMINATE AGE WITH POSTERIOR EXTENSION Electronically Signed On 02-08-17 10:40:29 CDT by BOLIVAR BLACKMON [email or web address]
[2017-02-03] MEDS: MIDAZOLAM 2 MG/2 ML VIAL IV PRN (08:36)
[2017-02-03] MEDS ORDERED: MORPHINE 2 MG/1 ML SYRINGE IV PRN (08:37)
[2017-02-03] MEDS ORDERED: GLUCAGON 1 MG VIAL IM PRN (08:37)
[2017-02-03] MEDS ORDERED: MAGNESIUM SULF RIDER 4 GM in PREMIX 1 EACH IV PRN (08:37)
[2017-02-03] MEDS ORDERED: MAGNESIUM HYDROXIDE SUSP 30 ML UDCUP PO PRN (08:37)
[2017-02-03] MEDS ORDERED: DEXTROSE 50% 25 GM/50 ML SYRINGE IV PRN (08:37)
[2017-02-03] MEDS ORDERED: ACETAMINOPHEN 325 MG TABLET PO PRN (08:37)
[2017-02-03] MEDS ORDERED: ALUMINUM/MAGNES/SIMETH MAX STR 30 ML UDCUP PO PRN (08:37)
[2017-02-03] MEDS ORDERED: ONDANSETRON 4 MG/2 ML VIAL IV PRN (08:37)
[2017-02-03] MEDS ORDERED: MAGNESIUM SULF RIDER 2 GM in PREMIX 1 EACH IV PRN (08:37)
[2017-02-03] MEDS ORDERED: ZALEPLON 5 MG CAPSULE PO PRN (08:37)
[2017-02-03] MEDS ORDERED: oxyCODONE/ACETAMINOPHEN 5-325 MG TABLET PO PRN (08:37)
[2017-02-03] MEDS: GLIMEPIRIDE 2 MG TABLET PO SCH (08:41)
[2017-02-03] MEDS: CHLORHEXIDINE 0.12% ORAL RINSE 60 ML BOTTLE SWISH/SPIT SCH ×3 (08:41→22:30)
[2017-02-03] MEDS: METOPROLOL SUCCINATE XL 25 MG TABLET PO SCH ×2 (08:42→22:12)
[2017-02-03] MEDS: LISINOPRIL 5 MG TABLET PO SCH ×2 (08:42→22:12)
[2017-02-03] MEDS: DOCUSATE SODIUM 100 MG CAPSULE PO SCH (08:48)
[2017-02-03] MEDS: SODIUM CHLOR 0.45% KCL 20 MEQ 20 MEQ/1,000 ML BAG IV SCH (08:49)
[2017-02-03] MEDS: PANTOPRAZOLE 40 MG TABLET PO SCH (08:49)
[2017-02-03] MEDS: ASPIRIN EC 325 MG TABLET PO SCH (08:49)
[2017-02-03] MEDS: FERROUS SULFATE 325 MG TABLET PO SCH (08:53)
[2017-02-03] MEDS: INSULIN REGULAR 100 UNIT/ML SUBCUT SCH (08:55)
[2017-02-03] MEDS: KETOROLAC 30 MG/1 ML VIAL IV SCH ×3 (10:04→22:18)
--- NOTE | 2017-02-03 10:44 | XRay Report ---
History is chest tube removal 02/03/2017 at 8:30 AM Comparison with earlier the same day The heart is enlarged. Letart-Vivian catheter has been removed. Right central line tip over the right atrium remains Chest tubes been removed. No pneumothorax or consolidation seen Impression: Interval removal of chest tubes and Letart-Vivian catheter otherwise Little change PROCEDURE INTERPRETED AT [facility] DEPARTMENT OF RADIOLOGY Final Report Signed by: Dr. Nan Myles
--- NOTE | 2017-02-03 11:43 | Hospitalist Progress Note ---
Assessment and Plan (1) Chest pain Status: Acute Assessment and plan: The patient is postoperative day #2 from bypass surgery. Glucose is well controlled. Current Visit: Yes (2) Hypertension Status: Chronic Current Visit: Yes (3) Diabetes mellitus Status: Chronic Current Visit: Yes Hospitalist: Subjective Interval history: Mr. Matos is on postoperative day #2 coronary artery bypass grafting. The patient is ready for transfer to the floor. He is awake alert and has no angina. The patient states that he had poor sleep last night. Exam - Constitutional Vitals: Period Temp Pulse Resp BP Sys/Espinal Pulse Ox Last 24 Hr 98 F-99.1 F 68-86 12-20 96-178/53-77 95-100 Exam: Constitutional System: Mild distress. No tremulousness. Head: Normocephalic, atraumatic. Ears, Nose and Throat System: No evidence of Otitis or Mastoiditis. No epistaxis or discharge Eyes System: Pupils equal, round, and reactive. Extraocular muscles intact. Neck: Supple, without adenopathy, No jugular venous distention. No thyromegaly , neck mass, or prior surgery apparent. Respiratory System: Chest clear to auscultation. Cardiovascular System: Heart with regular rate and rhythm. Systolic murmur resolved GI System: Abdomen soft, nontender. Normo active bowel sounds present. Results - Labs CBC & BMP: 02/03/17 03:45 02/03/17 03:45 Lab Results: I have reviewed the past 24 hour labs Quality Measures - VTE Contraindication to Pharmacological VTE Prophylaxis: Already on Theraputic Agent , No Prophylaxis Needed Specialty Discharge - Follow Up or Referrals
--- NOTE | 2017-02-03 11:52 | XRay Report ---
History is chest tube management postextubation Comparison 02/02/2017 The heart is enlarged. ET tube is been removed. NG tube is been removed. Anterior chest tubes present with no pneumothorax seen The heart is enlarged. No confluent infiltrate is seen. Impression: Interval removal of ET and NG tubes otherwise Little change PROCEDURE INTERPRETED AT [facility] DEPARTMENT OF RADIOLOGY Final Report Signed by: Dr. Nan Myles
[2017-02-03] MEDS: INSULIN LISPRO 100 UNIT/ML SUBCUT SCH ×2 (15:56→22:18)
[2017-02-03] MEDS: ROSUVASTATIN 20 MG TABLET PO SCH (22:12)
[2017-02-04] MEDS: KETOROLAC 30 MG/1 ML VIAL IV SCH ×4 (03:31→21:03)
[2017-02-04 04:37] LABS: Basophils % 0.1 % (0.0-0.8); Hematocrit 31.6 VOL% (42.0-52.0); Hemoglobin 10.7 GM/DL (14.0-18.0); Immature Granulocytes % 0.7 %; Immature Granulocytes Absolute 0.11 #; Lymphocytes # 1.1 10*3/uL (1.4-4.0); Lymphocytes % 7.1 % (21.2-54.2); Mean Corpuscular HGB Conc 33.9 GM/DL (32-36); Mean Corpuscular Hemoglobin 34 PG (27-34); Mean Corpuscular Volume 100.6 FL (87-102); Mean Platelet Volume 12.9 FL (9.6-12.0); Monocytes # 0.9 10*3/uL (0.11-0.8); Monocytes % 5.9 % (1.7-12.7); Neutrophils % 86.2 % (38.7-73.9); Red Blood Count 3.14 MC/CUMM (3.8-5.5); Red Cell Distribution Width 15.2 % (9.3-17.3)
[2017-02-04 04:39] LABS: Platelet Count 60 T/CUMM (130-400)
[2017-02-04 05:10] LABS: Albumin 3.6 G/DL (3.4-5.0); Bilirubin,Direct 0.26 MG/DL (0.0-0.20); Bilirubin,Indirect 0.4 MG/DL (0.0-1.0); Bilirubin,Total 0.7 MG/DL (0.2-1.0); CKMB % 2.1 %; Calcium 8.3 MG/DL (8.5-10.1); Magnesium 2.5 MG/DL (1.8-2.4); Potassium 3.9 MMOL/L (3.5-5.1); Total Protein 5.6 G/DL (6.4-8.3)
[2017-02-04] MEDS ORDERED: FUROSEMIDE 40 MG/4 ML VIAL IV ONE (06:00)
[2017-02-04 07:34] LABS: Lymphocytes 10 % (20-55); Segmented Neutrophils 82 % (50-85); Total Cells Counted 100
[2017-02-04 07:35] LABS: Hypochromasia 1+; Macrocytosis Slight; Platelet Estimate Decreased
--- NOTE | 2017-02-04 08:18 | Cardiothoracic Progress Note ---
Cardiothoracic Subjective Interval history: Patient is awake and alert today his vital signs have been stable and is breathing comfortably. His laboratory work and x-ray are essentially okay for postoperative day 3. His troponin is 14 today. It peaked at 30 and has trended down fairly rapidly. We will gradually try to increase his activities today as tolerated but overall I think his progress is satisfactory. Exam (Progress Note) - Constitutional Vitals: Period Temp Pulse Resp BP Sys/Espinal Pulse Ox Last 24 Hr 96.5 F-98.2 F 63-78 13-20 112-131/65-82 92-100 Result/EKG - Labs CBC & BMP: 02/04/17 02:35 02/04/17 02:35 Labs: Laboratory Results - last 24 hr 02/03/17 02/03/17 02/03/17 11:45 15:19 21:56 WBC RBC Hgb Hct MCV MCH MCHC RDW Plt Count MPV Neut % (Auto) Lymph % (Auto) [place] % (Auto) Eos % (Auto) Baso % (Auto) Neut # (Auto) Lymph # (Auto) [place] # (Auto) Eos # (Auto) Baso # (Auto) Total Counted Immature Gran % Nucleated RBC % Immature Gran # Segmented Neutrophils Lymphocytes Monocytes Nucleated RBCs # Platelet Estimate Immature Plt Fraction Hypochromasia Macrocytosis Morphology Comment Sodium Potassium Chloride Carbon Dioxide Anion Gap BUN Creatinine GFR Calculation BUN/Creatinine Ratio Glucose POC Glucose 243 H 244 H 182 H Calculated Osmolality Calcium Magnesium Total Bilirubin Direct Bilirubin Indirect Bilirubin AST ALT Alkaline Phosphatase Total Creatine Kinase CK-MB (CK-2) CK and CKMB Interp Troponin I Total Protein Albumin Globulin Albumin/Globulin Ratio 02/04/17 02/04/17 02/04/17 02:35 02:35 07:47 WBC 15.0 H RBC 3.14 L Hgb 10.7 L Hct 31.6 L MCV 100.6 MCH 34 MCHC 33.9 RDW 15.2 Plt Count 60 L MPV 12.9 H Neut % (Auto) 86.2 H Lymph % (Auto) 7.1 L [place] % (Auto) 5.9 Eos % (Auto) 0.0 Baso % (Auto) 0.1 Neut # (Auto) 13.0 H Lymph # (Auto) 1.1 L [place] # (Auto) 0.9 H Eos # (Auto) 0.0 Baso # (Auto) 0.0 Total Counted 100 Immature Gran % 0.7 Nucleated RBC % 0.0 Immature Gran # 0.11 Segmented Neutrophils 82 Lymphocytes 10 L Monocytes 8 Nucleated RBCs # 0.00 Platelet Estimate Decreased Immature Plt Fraction 9.6 H Hypochromasia 1+ Macrocytosis Slight Morphology Comment Sodium 143 Potassium 3.9 Chloride 106 Carbon Dioxide 32 Anion Gap 8.9 BUN 27 H Creatinine 0.80 GFR Calculation 99 BUN/Creatinine Ratio 33.00 H Glucose 150 H POC Glucose 192 H Calculated Osmolality 292.0 Calcium 8.3 L Magnesium 2.5 H Total Bilirubin 0.70 Direct Bilirubin 0.260 H Indirect Bilirubin 0.4 AST 88 H ALT 42 Alkaline Phosphatase 67 Total Creatine Kinase 704 H D CK-MB (CK-2) 15.1 H D CK and CKMB Interp 2.1 Troponin I 14.000 H D Total Protein 5.6 L Albumin 3.6 Globulin 2.0 L Albumin/Globulin Ratio 1.8 Quality Measures - VTE Contraindication to Pharmacological VTE Prophylaxis: Already on Theraputic Agent , No Prophylaxis Needed Specialty Discharge - Follow Up or Referrals
--- NOTE | 2017-02-04 08:39 | Cardiology Progress Note ---
Assessment and Plan (1) Unstable angina Status: Acute Assessment and plan: 1. Postop day #2 after CABG alert and oriented without complaint and hemodynamically stable 2. No evidence of dysrhythmia 3. Thrombocytopenia consistent with postoperative state 4. Given troponin elevation will check follow-up EKG; HESS was placed in diagonal row that LAD likely because the LAD has a significant intramyocardial course; the LAD would be somewhat difficult to intervene upon percutaneously given its smaller size and bridging. Continue medical therapy with high intensity statin, beta-tono, and antiplatelet therapy. February 04, 2017: 1. Postop day #3 after CABG doing fairly well clinically and is hemodynamically stable 2. Maintain normal sinus rhythm 3. Stable thrombocytopenia with platelet count of 60,000 4. Troponin trended down from 30-14; HESS was placed in the diagonal above some severe LAD disease due to the LAD is intramyocardial course/"bridging" 5. He is on good medical therapy 6. Gradually increase activity level while avoiding falls. Current Visit: Yes (2) Hypertension Status: Chronic Current Visit: Yes (3) Coronary artery disease Status: Acute Current Visit: Yes Cardiology - PN: Subj Interval history: Mr. Matos had a bit of difficulty sleeping "is pretty a lot out there". He is not having shortness of breath nausea diaphoresis or palpitations. He has a usual sternal soreness. He has not had a very good appetite yet. Exam (Progress Note) - Constitutional Vitals: Period Temp Pulse Resp BP Sys/Espinal Pulse Ox Last 24 Hr 96.5 F-98.2 F 63-78 13-20 112-131/65-82 92-100 General appearance: normal weight, no acute distress - Head Head exam: Present: normal inspection, normocephalic, atraumatic - Neck Neck exam: Present: normal inspection - Respiratory Respiratory exam: Present: rales. Absent: stridor, wheezes - Cardiovascular Cardiovascular exam: Present: regular rate and rhythm. Absent: diastolic murmur , rubs - GI/Abdominal GI/Abdominal exam: Present: soft. Absent: tenderness - Extremities Exam Extremities exam: Present: other (Drain noted at lower extremity incision site) . Absent: edema Result/EKG - Labs CBC & BMP: 02/04/17 02:35 02/04/17 02:35 Labs: Laboratory Results - last 24 hr 02/03/17 02/03/17 02/03/17 11:45 15:19 21:56 WBC RBC Hgb Hct MCV MCH MCHC RDW Plt Count MPV Neut % (Auto) Lymph % (Auto) [place] % (Auto) Eos % (Auto) Baso % (Auto) Neut # (Auto) Lymph # (Auto) [place] # (Auto) Eos # (Auto) Baso # (Auto) Total Counted Immature Gran % Nucleated RBC % Immature Gran # Segmented Neutrophils Lymphocytes Monocytes Nucleated RBCs # Platelet Estimate Immature Plt Fraction Hypochromasia Macrocytosis Morphology Comment Sodium Potassium Chloride Carbon Dioxide Anion Gap BUN Creatinine GFR Calculation BUN/Creatinine Ratio Glucose POC Glucose 243 H 244 H 182 H Calculated Osmolality Calcium Magnesium Total Bilirubin Direct Bilirubin Indirect Bilirubin AST ALT Alkaline Phosphatase Total Creatine Kinase CK-MB (CK-2) CK and CKMB Interp Troponin I Total Protein Albumin Globulin Albumin/Globulin Ratio 02/04/17 02/04/17 02/04/17 02:35 02:35 07:47 WBC 15.0 H RBC 3.14 L Hgb 10.7 L Hct 31.6 L MCV 100.6 MCH 34 MCHC 33.9 RDW 15.2 Plt Count 60 L MPV 12.9 H Neut % (Auto) 86.2 H Lymph % (Auto) 7.1 L [place] % (Auto) 5.9 Eos % (Auto) 0.0 Baso % (Auto) 0.1 Neut # (Auto) 13.0 H Lymph # (Auto) 1.1 L [place] # (Auto) 0.9 H Eos # (Auto) 0.0 Baso # (Auto) 0.0 Total Counted 100 Immature Gran % 0.7 Nucleated RBC % 0.0 Immature Gran # 0.11 Segmented Neutrophils 82 Lymphocytes 10 L Monocytes 8 Nucleated RBCs # 0.00 Platelet Estimate Decreased Immature Plt Fraction 9.6 H Hypochromasia 1+ Macrocytosis Slight Morphology Comment Sodium 143 Potassium 3.9 Chloride 106 Carbon Dioxide 32 Anion Gap 8.9 BUN 27 H Creatinine 0.80 GFR Calculation 99 BUN/Creatinine Ratio 33.00 H Glucose 150 H POC Glucose 192 H Calculated Osmolality 292.0 Calcium 8.3 L Magnesium 2.5 H Total Bilirubin 0.70 Direct Bilirubin 0.260 H Indirect Bilirubin 0.4 AST 88 H ALT 42 Alkaline Phosphatase 67 Total Creatine Kinase 704 H D CK-MB (CK-2) 15.1 H D CK and CKMB Interp 2.1 Troponin I 14.000 H D Total Protein 5.6 L Albumin 3.6 Globulin 2.0 L Albumin/Globulin Ratio 1.8 Quality Measures - VTE Contraindication to Pharmacological VTE Prophylaxis: Already on Theraputic Agent , No Prophylaxis Needed Specialty Discharge - Follow Up or Referrals
[2017-02-04] MEDS: SODIUM CHLOR 0.45% KCL 20 MEQ 20 MEQ/1,000 ML BAG IV SCH (08:53)
[2017-02-04] MEDS: INSULIN LISPRO 100 UNIT/ML SUBCUT SCH ×4 (09:13→21:03)
[2017-02-04] MEDS: METOPROLOL SUCCINATE XL 25 MG TABLET PO SCH ×2 (09:14→21:02)
[2017-02-04] MEDS: FERROUS SULFATE 325 MG TABLET PO SCH (09:14)
[2017-02-04] MEDS: GLIMEPIRIDE 2 MG TABLET PO SCH (09:15)
[2017-02-04] MEDS: LISINOPRIL 5 MG TABLET PO SCH ×2 (09:15→21:02)
[2017-02-04] MEDS: DOCUSATE SODIUM 100 MG CAPSULE PO SCH (09:15)
[2017-02-04] MEDS: PANTOPRAZOLE 40 MG TABLET PO SCH (09:15)
[2017-02-04] MEDS: CHLORHEXIDINE 0.12% ORAL RINSE 60 ML BOTTLE SWISH/SPIT SCH ×2 (09:15→21:08)
[2017-02-04] MEDS: ASPIRIN EC 325 MG TABLET PO SCH (09:15)
--- NOTE | 2017-02-04 10:21 | Hospitalist Progress Note ---
Assessment and Plan (1) Chest pain Status: Acute Assessment and plan: The patient is postoperative day #3 from bypass surgery. Glucose is well controlled. Current Visit: Yes (2) Hypertension Status: Chronic Current Visit: Yes (3) Diabetes mellitus Status: Chronic Current Visit: Yes Hospitalist: Subjective Interval history: Mr. Matos is resting quietly in bed today. He does not complain of shortness of breath or angina. He has some postoperative discomfort as expected. He is conversational and optimistic. Exam - Constitutional Vitals: Period Temp Pulse Resp BP Sys/Espinal Pulse Ox Last 24 Hr 96.5 F-98.2 F 63-78 13-20 112-131/65-82 92-100 Exam: Constitutional System: Mild distress. No tremulousness. Head: Normocephalic, atraumatic. Ears, Nose and Throat System: No evidence of Otitis or Mastoiditis. No epistaxis or discharge Eyes System: Pupils equal, round, and reactive. Extraocular muscles intact. Neck: Supple, without adenopathy, No jugular venous distention. No thyromegaly , neck mass, or prior surgery apparent. Respiratory System: Chest clear to auscultation. Cardiovascular System: Heart with regular rate and rhythm. Systolic murmur resolved GI System: Abdomen soft, nontender. Normo active bowel sounds present. Results - Labs CBC & BMP: 02/04/17 02:35 02/04/17 02:35 Lab Results: I have reviewed the past 24 hour labs Quality Measures - VTE Contraindication to Pharmacological VTE Prophylaxis: Already on Theraputic Agent , No Prophylaxis Needed Specialty Discharge - Follow Up or Referrals
--- NOTE | 2017-02-04 11:44 | XRay Report ---
Portable chest Exam date: 02/04/2017 4:00 AM Indication: Shortness of breath, cough Comparison: Previous day at 0828 hours Findings: Cardiomediastinal contours are stable with sternotomy wires and midline, underlying cardiomegaly and no change in central venous catheter placement. Improved aeration of the lung bases. No acute osseous abnormalities. Visualized upper abdomen demonstrates no acute pathology. Impression: Improved aeration of the lung bases PROCEDURE INTERPRETED AT [facility] DEPARTMENT OF RADIOLOGY Final Report Signed by: Villa Blackwood
[2017-02-04] MEDS: ROSUVASTATIN 20 MG TABLET PO SCH (21:03)
[2017-02-05] MEDS: KETOROLAC 30 MG/1 ML VIAL IV SCH ×4 (02:42→21:38)
[2017-02-05 05:04] LABS: Basophils % 0.1 % (0.0-0.8); Eosinophils % 0.1 % (0.00-10.9); Hematocrit 32.3 VOL% (42.0-52.0); Hemoglobin 10.8 GM/DL (14.0-18.0); Immature Granulocytes % 0.5 %; Immature Granulocytes Absolute 0.08 #; Lymphocytes # 1.8 10*3/uL (1.4-4.0); Lymphocytes % 11.8 % (21.2-54.2); Mean Corpuscular HGB Conc 33.4 GM/DL (32-36); Mean Corpuscular Hemoglobin 33 PG (27-34); Mean Corpuscular Volume 99.1 FL (87-102); Mean Platelet Volume 12.7 FL (9.6-12.0); Monocytes # 1.2 10*3/uL (0.11-0.8); Neutrophils # 11.8 10*3/uL (1.4-7.4); Neutrophils % 79.5 % (38.7-73.9); Red Blood Count 3.26 MC/CUMM (3.8-5.5); Red Cell Distribution Width 14.5 % (9.3-17.3); White Blood Count 14.9 T/CUMM (4-12)
[2017-02-05 05:10] LABS: Platelet Count 64 T/CUMM (130-400)
[2017-02-05 05:41] LABS: Albumin 3.6 G/DL (3.4-5.0); Bilirubin,Direct 0.21 MG/DL (0.0-0.20); Bilirubin,Indirect 0.6 MG/DL (0.0-1.0); Bilirubin,Total 0.8 MG/DL (0.2-1.0); CKMB % 1.2 %; Calcium 8.3 MG/DL (8.5-10.1); Magnesium 2.8 MG/DL (1.8-2.4); Osmolality,Calculated 285.3 MOS/KG (273-304); Potassium 3.6 MMOL/L (3.5-5.1); Total Protein 5.7 G/DL (6.4-8.3)
[2017-02-05 05:42] LABS: Troponin I Only 11.8 NG/ML (0.00-0.045)
[2017-02-05 05:56] LABS: Giant Platelets Few; Hypochromasia 1+; Lymphocytes 15 % (20-55); Ovalocytes Slight; Platelet Estimate Decreased; Segmented Neutrophils 77 % (50-85); Total Cells Counted 100
[2017-02-05 05:57] LABS: Macrocytosis Slight
--- NOTE | 2017-02-05 08:06 | Cardiothoracic Progress Note ---
Cardiothoracic Subjective Interval history: Patient looks and feels better this morning. Vital signs are stable and is breathing comfortably. Laboratory work and chest x-ray all look acceptable for postoperative day 4. We will try to increase his activities today according to routine postoperative protocol but overall his progress appears satisfactory. Exam (Progress Note) - Constitutional Vitals: Period Temp Pulse Resp BP Sys/Espinal Pulse Ox Last 24 Hr 96.1 F-98.9 F 61-74 16-20 133-140/62-83 90-96 Result/EKG - Labs CBC & BMP: 02/05/17 04:00 02/05/17 04:00 Labs: Laboratory Results - last 24 hr 01/31/17 02/04/17 02/04/17 05:15 11:42 19:58 WBC RBC Hgb Hct MCV MCH MCHC RDW Plt Count MPV Neut % (Auto) Lymph % (Auto) [place] % (Auto) Eos % (Auto) Baso % (Auto) Neut # (Auto) Lymph # (Auto) [place] # (Auto) Eos # (Auto) Baso # (Auto) Total Counted Immature Gran % Nucleated RBC % Immature Gran # Segmented Neutrophils Lymphocytes Monocytes Nucleated RBCs # Platelet Estimate Giant Platelets Immature Plt Fraction Hypochromasia Macrocytosis Ovalocytes Morphology Comment Sodium Potassium Chloride Carbon Dioxide Anion Gap BUN Creatinine GFR Calculation BUN/Creatinine Ratio Glucose POC Glucose 217 H 208 H Calculated Osmolality Calcium Magnesium Total Bilirubin Direct Bilirubin Indirect Bilirubin AST ALT Alkaline Phosphatase Total Creatine Kinase CK-MB (CK-2) CK and CKMB Interp Troponin I Total Protein Albumin Globulin Albumin/Globulin Ratio Crossmatch See Detail 02/05/17 02/05/17 04:00 04:00 WBC 14.9 H RBC 3.26 L Hgb 10.8 L Hct 32.3 L MCV 99.1 MCH 33 MCHC 33.4 RDW 14.5 Plt Count 64 L MPV 12.7 H Neut % (Auto) 79.5 H Lymph % (Auto) 11.8 L [place] % (Auto) 8.0 Eos % (Auto) 0.1 Baso % (Auto) 0.1 Neut # (Auto) 11.8 H Lymph # (Auto) 1.8 Charles # (Auto) 1.2 H Eos # (Auto) 0.0 Baso # (Auto) 0.0 Total Counted 100 Immature Gran % 0.5 Nucleated RBC % 0.0 Immature Gran # 0.08 Segmented Neutrophils 77 Lymphocytes 15 L Monocytes 8 Nucleated RBCs # 0.00 Platelet Estimate Decreased Giant Platelets Few Immature Plt Fraction 0.0 Hypochromasia 1+ Macrocytosis Slight Ovalocytes Slight Morphology Comment Sodium 141 Potassium 3.6 Chloride 105 Carbon Dioxide 32 Anion Gap 7.6 BUN 27 H Creatinine 1.00 GFR Calculation 83 BUN/Creatinine Ratio 27.00 H Glucose 106 POC Glucose Calculated Osmolality 285.3 Calcium 8.3 L Magnesium 2.8 H Total Bilirubin 0.80 Direct Bilirubin 0.210 H Indirect Bilirubin 0.6 AST 65 H ALT 44 Alkaline Phosphatase 75 Total Creatine Kinase 472 H D CK-MB (CK-2) 5.8 H D CK and CKMB Interp 1.2 Troponin I 11.800 H Total Protein 5.7 L Albumin 3.6 Globulin 2.1 L Albumin/Globulin Ratio 1.7 Crossmatch Quality Measures - VTE Contraindication to Pharmacological VTE Prophylaxis: Already on Theraputic Agent , No Prophylaxis Needed Specialty Discharge - Follow Up or Referrals
[2017-02-05] MEDS: INSULIN LISPRO 100 UNIT/ML SUBCUT SCH ×4 (08:14→21:39)
--- NOTE | 2017-02-05 09:55 | XRay Report ---
History: Shortness of breath Date: 02/05/2017 Study: Chest x-ray AP portable Comparison exam: 02/04/2017 The right IJ central line is stable in position. There is continued cardiomegaly. The mediastinal contours are unchanged in this patient status post prior median sternotomy. The pulmonary vasculature is not engorged. There is mild platelike scar or subsegmental atelectasis in the left lower lobe as before. There is some mild increased strandy and hazy atelectasis/infiltrate in the right lung base on the current study. There is no pleural effusion. Osseous structures are unchanged. Impression: Mildly increased hazy atelectasis/infiltrate in the right lung base on the current exam. Mild pneumonia cannot be excluded. Follow-up films recommended PROCEDURE INTERPRETED AT [facility] DEPARTMENT OF RADIOLOGY Final Report Signed by: Dr. Velia Schreiber
[2017-02-05] MEDS: GLIMEPIRIDE 2 MG TABLET PO SCH (10:08)
[2017-02-05] MEDS: ASPIRIN EC 325 MG TABLET PO SCH (10:10)
[2017-02-05] MEDS: DOCUSATE SODIUM 100 MG CAPSULE PO SCH (10:11)
[2017-02-05] MEDS: FERROUS SULFATE 325 MG TABLET PO SCH (10:12)
[2017-02-05] MEDS: LISINOPRIL 5 MG TABLET PO SCH ×2 (10:12→21:38)
[2017-02-05] MEDS: METOPROLOL SUCCINATE XL 25 MG TABLET PO SCH ×2 (10:13→21:38)
[2017-02-05] MEDS: PANTOPRAZOLE 40 MG TABLET PO SCH (10:14)
[2017-02-05] MEDS: CHLORHEXIDINE 0.12% ORAL RINSE 60 ML BOTTLE SWISH/SPIT SCH ×2 (10:15→21:39)
--- NOTE | 2017-02-05 11:47 | Cardiology Progress Note ---
<Charlene Vickers - Last Filed: 02/05/17 11:32> Assessment and Plan (1) S/P CABG x 3 Status: Acute Assessment and plan: SEE PLAN OF CARE LISTED BELOW. Current Visit: Yes (2) Coronary artery disease Status: Acute Assessment and plan: SEE PLAN OF CARE LISTED BELOW. Current Visit: Yes (3) Obstructive sleep apnea Status: Chronic Assessment and plan: SEE PLAN OF CARE LISTED BELOW. Current Visit: Yes (4) Diabetes mellitus Status: Chronic Assessment and plan: SEE PLAN OF CARE LISTED BELOW. Current Visit: Yes (5) Hyperlipidemia Status: Chronic Assessment and plan: SEE PLAN OF CARE LISTED BELOW. Current Visit: Yes (6) Hypertension Status: Chronic Assessment and plan: SEE PLAN OF CARE LISTED BELOW. Current Visit: Yes (7) Thrombocytopenia Status: Acute Assessment and plan: SEE PLAN OF CARE LISTED BELOW. Current Visit: Yes Cardiology - PN: Subj Interval history: [employer]: new to Dr. Cardona SUMMARY Mr. Matos is a 71-year-old WM who was not previously known to cardiology. He is admitted to the hospital with sudden onset chest pain, atypical. He had an abnormal stress test and underwent cardiac catheterization which revealed severe 3 vessel coronary artery disease. He was referred to Dr. Rose for CABG. He underwent CABG February 01, 2017 with a HESS to diagonal, SVG to obtuse marginal and SVG to right PDA. 2016 Mr. Matos is seen and examined on the telemetry unit. Post op day #4 from CABG with HESS to diagonal, SVG to obtuse marginal and SVG to right PDA. Patient is doing well postoperatively. He is without complaints this morning. He was seen sitting up in chair in no acute distress. Without complaints of chest pain, heaviness or tightness. Troponin trending down. Denies heart racing/palpitations. No arrhythmias noted on national secretary. Hemodynamically stable. Tolerating aspirin, beta-blockade, SURAJ inhibitor and lipid-lowering agent well. No evidence of arrhythmia on national secretary. Encourage incentive spirometry. Encourage increase in activity as tolerated. I will further discuss Dr. Steele and await his additional recommendations. IMPRESSION/PLAN: 1. CORONARY ARTERY DISEASE, STATUS POST CABG X 3: Patient is post operative day #4 from CABG x3 with HESS to diagonal, SVG to obtuse marginal, and SVG to right PDA. Doing well postoperatively. Tolerating aspirin, beta-blockade, SURAJ inhibitor and lipid-lowering agent well. No evidence of arrhythmia on national secretary. Encourage incentive spirometry. Encourage increase in activity as tolerated. I will further discuss Dr. Steele and await his additional recommendations. 2. HYPERTENSION: Blood pressure is well controlled. Continue current plan of care. Tolerating beta-blockade and SURAJ inhibitor well. 3. DIABETES MELLITUS: Hospital medicine following. 4. HYPERLIPIDEMIA: LDL 96. Statin was increased to high intensity this hospitalization. Patient will need repeat lipid panel in 4-6 weeks. 5. THROMBOCYTOPENIA - Monitor daily. 6. SOHAN - Dr. Warner has been consulted. Plan to follow-up as an outpatient. Exam (Progress Note) - Constitutional Vitals: Period Temp Pulse Resp BP Sys/Espinal Pulse Ox Last 24 Hr 96.1 F-98.9 F 61-74 16-20 125-140/62-83 90-96 Exam: General: Appears well with no apparent distress. Pleasant and cooperative. Appears comfortable. HEENT: PERRL, normocephalic, atraumatic. Mucous membranes moist. No jaundice noted. Conjunctiva moist and clear, sclerae anicteric Neck: No JVD/HJR, no thyromegaly or lymphadenopathy noted. No carotid bruit appreciated Cardiac: Regular rate and rhythm. No murmur rub or gallop. Midsternal chest dressing clean dry and intact. Lungs: Clear to auscultation without accessory muscle use to assist the respiratory pattern. Requiring oxygen intermittently. Abdomen: Soft, bowel sounds present. Nontender and nondistended. No abdominal bruit or thrill noted. No masses noted. Extremities: No clubbing, cyanosis noted. Trace edema to bilateral lower extremities. Upper extremity pulses 2+. Lower extremity pulses 2+. Capillary refill less than 3 seconds. Surgical incision to bilateral lower extremities healing well without signs of infection. Marcos intact. Skin: No unusual lesions or rashes. No skin breakdown appreciated. Neuro: Awake, alert and oriented 3. Moves all extremities well without hemiparesis or paralysis. No essential tremor is appreciated. Result/EKG - Labs CBC & BMP: 02/05/17 04:00 02/05/17 04:00 Lab Results: I have reviewed the past 24 hour labs Labs: Laboratory Results - last 24 hr 01/31/17 02/04/17 02/04/17 05:15 11:42 19:58 WBC RBC Hgb Hct MCV MCH MCHC RDW Plt Count MPV Neut % (Auto) Lymph % (Auto) [place] % (Auto) Eos % (Auto) Baso % (Auto) Neut # (Auto) Lymph # (Auto) [place] # (Auto) Eos # (Auto) Baso # (Auto) Total Counted Immature Gran % Nucleated RBC % Immature Gran # Segmented Neutrophils Lymphocytes Monocytes Nucleated RBCs # Platelet Estimate Giant Platelets Immature Plt Fraction Hypochromasia Macrocytosis Ovalocytes Morphology Comment Sodium Potassium Chloride Carbon Dioxide Anion Gap BUN Creatinine GFR Calculation BUN/Creatinine Ratio Glucose POC Glucose 217 H 208 H Calculated Osmolality Calcium Magnesium Total Bilirubin Direct Bilirubin Indirect Bilirubin AST ALT Alkaline Phosphatase Total Creatine Kinase CK-MB (CK-2) CK and CKMB Interp Troponin I Total Protein Albumin Globulin Albumin/Globulin Ratio Crossmatch See Detail 02/05/17 02/05/17 02/05/17 04:00 04:00 08:04 WBC 14.9 H RBC 3.26 L Hgb 10.8 L Hct 32.3 L MCV 99.1 MCH 33 MCHC 33.4 RDW 14.5 Plt Count 64 L MPV 12.7 H Neut % (Auto) 79.5 H Lymph % (Auto) 11.8 L [place] % (Auto) 8.0 Eos % (Auto) 0.1 Baso % (Auto) 0.1 Neut # (Auto) 11.8 H Lymph # (Auto) 1.8 [place] # (Auto) 1.2 H Eos # (Auto) 0.0 Baso # (Auto) 0.0 Total Counted 100 Immature Gran % 0.5 Nucleated RBC % 0.0 Immature Gran # 0.08 Segmented Neutrophils 77 Lymphocytes 15 L Monocytes 8 Nucleated RBCs # 0.00 Platelet Estimate Decreased Giant Platelets Few Immature Plt Fraction 0.0 Hypochromasia 1+ Macrocytosis Slight Ovalocytes Slight Morphology Comment Sodium 141 Potassium 3.6 Chloride 105 Carbon Dioxide 32 Anion Gap 7.6 BUN 27 H Creatinine 1.00 GFR Calculation 83 BUN/Creatinine Ratio 27.00 H Glucose 106 POC Glucose 111 H Calculated Osmolality 285.3 Calcium 8.3 L Magnesium 2.8 H Total Bilirubin 0.80 Direct Bilirubin 0.210 H Indirect Bilirubin 0.6 AST 65 H ALT 44 Alkaline Phosphatase 75 Total Creatine Kinase 472 H D CK-MB (CK-2) 5.8 H D CK and CKMB Interp 1.2 Troponin I 11.800 H Total Protein 5.7 L Albumin 3.6 Globulin 2.1 L Albumin/Globulin Ratio 1.7 Crossmatch 02/05/17 11:00 WBC RBC Hgb Hct MCV MCH MCHC RDW Plt Count MPV Neut % (Auto) Lymph % (Auto) [place] % (Auto) Eos % (Auto) Baso % (Auto) Neut # (Auto) Lymph # (Auto) [place] # (Auto) Eos # (Auto) Baso # (Auto) Total Counted Immature Gran % Nucleated RBC % Immature Gran # Segmented Neutrophils Lymphocytes Monocytes Nucleated RBCs # Platelet Estimate Giant Platelets Immature Plt Fraction Hypochromasia Macrocytosis Ovalocytes Morphology Comment Sodium Potassium Chloride Carbon Dioxide Anion Gap BUN Creatinine GFR Calculation BUN/Creatinine Ratio Glucose POC Glucose 200 H Calculated Osmolality Calcium Magnesium Total Bilirubin Direct Bilirubin Indirect Bilirubin AST ALT Alkaline Phosphatase Total Creatine Kinase CK-MB (CK-2) CK and CKMB Interp Troponin I Total Protein Albumin Globulin Albumin/Globulin Ratio Crossmatch Quality Measures - VTE Contraindication to Pharmacological VTE Prophylaxis: Already on Theraputic Agent , No Prophylaxis Needed Specialty Discharge - Follow Up or Referrals <Sulaiman Steele - Last Filed: 02/05/17 15:52> Cardiology - PN: Subj Interval history: Patient personally interviewed and examined chart review. He continues to make good progress post bypass surgery. Surgical wounds are done well. The patient was having issues with bowel movements but today had a good bowel movement with the help of medication. The patient is had no palpitations. His vital signs and hemodynamics remain stable. He is making good progress with physical therapy walking ambulating the simpsno. The present continue his present therapy. Exam (Progress Note) - Constitutional Vitals: Period Temp Pulse Resp BP Sys/Espinal Pulse Ox Last 24 Hr 96.1 F-97.8 F 60-74 16-20 110-140/62-83 90-98 Result/EKG - Labs CBC & BMP: 02/05/17 04:00 02/05/17 04:00 Labs: Laboratory Results - last 24 hr 01/31/17 02/04/17 02/05/17 05:15 19:58 04:00 WBC 14.9 H RBC 3.26 L Hgb 10.8 L Hct 32.3 L MCV 99.1 MCH 33 MCHC 33.4 RDW 14.5 Plt Count 64 L MPV 12.7 H Neut % (Auto) 79.5 H Lymph % (Auto) 11.8 L [place] % (Auto) 8.0 Eos % (Auto) 0.1 Baso % (Auto) 0.1 Neut # (Auto) 11.8 H Lymph # (Auto) 1.8 [place] # (Auto) 1.2 H Eos # (Auto) 0.0 Baso # (Auto) 0.0 Total Counted 100 Immature Gran % 0.5 Nucleated RBC % 0.0 Immature Gran # 0.08 Segmented Neutrophils 77 Lymphocytes 15 L Monocytes 8 Nucleated RBCs # 0.00 Platelet Estimate Decreased Giant Platelets Few Immature Plt Fraction 0.0 Hypochromasia 1+ Macrocytosis Slight Ovalocytes Slight Morphology Comment Sodium Potassium Chloride Carbon Dioxide Anion Gap BUN Creatinine GFR Calculation BUN/Creatinine Ratio Glucose POC Glucose 208 H Calculated Osmolality Calcium Magnesium Total Bilirubin Direct Bilirubin Indirect Bilirubin AST ALT Alkaline Phosphatase Total Creatine Kinase CK-MB (CK-2) CK and CKMB Interp Troponin I Total Protein Albumin Globulin Albumin/Globulin Ratio Crossmatch See Detail 02/05/17 02/05/17 02/05/17 04:00 08:04 11:00 WBC RBC Hgb Hct MCV MCH MCHC RDW Plt Count MPV Neut % (Auto) Lymph % (Auto) [place] % (Auto) Eos % (Auto) Baso % (Auto) Neut # (Auto) Lymph # (Auto) [place] # (Auto) Eos # (Auto) Baso # (Auto) Total Counted Immature Gran % Nucleated RBC % Immature Gran # Segmented Neutrophils Lymphocytes Monocytes Nucleated RBCs # Platelet Estimate Giant Platelets Immature Plt Fraction Hypochromasia Macrocytosis Ovalocytes Morphology Comment Sodium 141 Potassium 3.6 Chloride 105 Carbon Dioxide 32 Anion Gap 7.6 BUN 27 H Creatinine 1.00 GFR Calculation 83 BUN/Creatinine Ratio 27.00 H Glucose 106 POC Glucose 111 H 200 H Calculated Osmolality 285.3 Calcium 8.3 L Magnesium 2.8 H Total Bilirubin 0.80 Direct Bilirubin 0.210 H Indirect Bilirubin 0.6 AST 65 H ALT 44 Alkaline Phosphatase 75 Total Creatine Kinase 472 H D CK-MB (CK-2) 5.8 H D CK and CKMB Interp 1.2 Troponin I 11.800 H Total Protein 5.7 L Albumin 3.6 Globulin 2.1 L Albumin/Globulin Ratio 1.7 Crossmatch
--- NOTE | 2017-02-05 14:46 | Hospitalist Progress Note ---
Assessment and Plan (1) Hypertension Status: Chronic Assessment and plan: Continue medications. Improved control. Current Visit: Yes Qualifiers: Hypertension type: essential hypertension Qualified Code(s): I10 - Essential (primary) hypertension (2) Diabetes mellitus Status: Chronic Assessment and plan: Add Lantus 10 units subcu daily. Add hemoglobin A1c. Continue sliding scale insulin and Accu-Cheks. Continue Amaryl. 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 Current Visit: Yes Hospitalist: Subjective Interval history: Patient seen and examined. No acute events overnight. Case discussed with nursing staff. Labs reviewed. Hemoglobin A1c has been ordered and Lantus added. Patient has had fluctuating blood glucoses from 111-250. His Amaryl dose was resumed. Exam - Constitutional Vitals: Period Temp Pulse Resp BP Sys/Espinal Pulse Ox Last 24 Hr 96.1 F-97.8 F 60-74 16-20 110-140/62-83 90-98 Exam: Constitutional System: No distress. No tremulousness. Head: Normocephalic, atraumatic. Ears, Nose and Throat System: No pain or tenderness. No epistaxis or discharge Eyes System: Pupils equal, round, and reactive. Extraocular muscles intact. Neck: Supple, without adenopathy, No jugular venous distention. Respiratory System: Chest clear to auscultation. Cardiovascular System: Heart with regular rate and rhythm. No murmur. Postop changes noted GI System: Abdomen soft, nontender. Normo active bowel sounds present. Musculoskeletal System: limbs with no pedal edema. Full distal pulses. Normal capillary refill. Neurological System: No discernable sensory deficit. No aphasia Psychiatric System: Conversation is rational Results - Labs CBC & BMP: 02/05/17 04:00 02/05/17 04:00 Lab Results: I have reviewed the past 24 hour labs Quality Measures - VTE Contraindication to Pharmacological VTE Prophylaxis: Already on Theraputic Agent , No Prophylaxis Needed Specialty Discharge - Follow Up or Referrals
--- NOTE | 2017-02-05 15:42 | Sleep Medicine Progress Note ---
Assessment and Plan (1) Obstructive sleep apnea Status: Chronic Assessment and plan: We will schedule follow-up in sleep clinic in 4-6 weeks. Current Visit: Yes (2) Hypertension Status: Chronic Current Visit: Yes Qualifiers: Hypertension type: essential hypertension Qualified Code(s): I10 - Essential (primary) hypertension (3) Diabetes mellitus Status: Chronic Current Visit: Yes Qualifiers: Diabetes mellitus type: type 2 Diabetes mellitus complication status: with hyperglycemia Diabetes mellitus assistant terminal manager insulin use: without snf use Qualified Code(s): E11.65 - Type 2 diabetes mellitus with hyperglycemia Sleep Medicine Subjective Interval history: Patient doing well postop bypass surgery. He anticipates discharge later this week. I had talked with him about his obstructive sleep apnea that was difficult control. It is felt that he likely has a component of treatment emergent central sleep apnea. He is a difficult case and rather than trying to get him retreated here postop, I recommended that we set him up for postop follow-up in the sleep clinic and go from there. He would like to postpone this for 4-6 weeks until he is recovered from his surgery. We we will contact him at that time for follow-up. Exam (Progress Note) - Constitutional Vitals: Period Temp Pulse Resp BP Sys/Espinal Pulse Ox Last 24 Hr 96.1 F-97.8 F 60-74 16-20 110-140/62-83 90-98 Exam: Patient alert and responsive. He answers all questions appropriately. Results - Labs CBC & BMP: 02/05/17 04:00 02/05/17 04:00 Lab Results: I have reviewed the past 24 hour labs Specialty Discharge - Follow Up or Referrals
[2017-02-05] MEDS: ROSUVASTATIN 20 MG TABLET PO SCH (21:38)
[2017-02-05] MEDS: INSULIN GLARGINE 100 UNIT/ML SUBCUT SCH (21:39)
[2017-02-06] MEDS: KETOROLAC 30 MG/1 ML VIAL IV SCH (03:17)
[2017-02-06 05:17] LABS: Basophils % 0.1 % (0.0-0.8); Eosinophils # 0.1 10*3/uL (0.0-0.87); Eosinophils % 1.2 % (0.00-10.9); Hemoglobin 10.7 GM/DL (14.0-18.0); Immature Granulocytes % 0.3 %; Immature Granulocytes Absolute 0.03 #; Lymphocytes % 18.9 % (21.2-54.2); Mean Corpuscular HGB Conc 34.5 GM/DL (32-36); Mean Corpuscular Hemoglobin 34 PG (27-34); Mean Platelet Volume 12.3 FL (9.6-12.0); Monocytes % 9.7 % (1.7-12.7); Neutrophils # 7.5 10*3/uL (1.4-7.4); Neutrophils % 69.8 % (38.7-73.9); Red Blood Count 3.13 MC/CUMM (3.8-5.5); Red Cell Distribution Width 14.4 % (9.3-17.3); White Blood Count 10.8 T/CUMM (4-12)
[2017-02-06 05:19] LABS: Platelet Count 93 T/CUMM (130-400)
[2017-02-06 05:57] LABS: Calcium 7.9 MG/DL (8.5-10.1); Magnesium 2.8 MG/DL (1.8-2.4); Osmolality,Calculated 286.1 MOS/KG (273-304); Potassium 3.5 MMOL/L (3.5-5.1)
[2017-02-06 05:58] LABS: Eosinophils 2 % (0-10); Total Cells Counted 100
[2017-02-06 05:59] LABS: Hypochromasia 2+; Lymphocytes 17 % (20-55); Platelet Estimate Decreased; Segmented Neutrophils 74 % (50-85)
--- NOTE | 2017-02-06 06:38 | Cardiothoracic Progress Note ---
Cardiothoracic Subjective Interval history: Patient had a comfortable night. Vital signs have been stable and he has been breathing comfortably. He is gradually increasing his activities. We will encourage that to continue today according to routine postoperative protocol and hopefully he will be ready for discharge before long. Exam (Progress Note) - Constitutional Vitals: Period Temp Pulse Resp BP Sys/Espinal Pulse Ox Last 24 Hr 97.4 F-98.1 F 60-71 16-20 110-138/67-83 93-98 Result/EKG - Labs CBC & BMP: 02/06/17 05:11 02/06/17 Unknown Labs: Laboratory Results - last 24 hr 02/05/17 02/05/17 02/05/17 08:04 11:00 15:33 WBC RBC Hgb Hct MCV MCH MCHC RDW Plt Count MPV Neut % (Auto) Lymph % (Auto) [place] % (Auto) Eos % (Auto) Baso % (Auto) Neut # (Auto) Lymph # (Auto) [place] # (Auto) Eos # (Auto) Baso # (Auto) Total Counted Immature Gran % Nucleated RBC % Immature Gran # Segmented Neutrophils Lymphocytes Monocytes Eosinophils Nucleated RBCs # Platelet Estimate Immature Plt Fraction Hypochromasia Sodium Potassium Chloride Carbon Dioxide Anion Gap BUN Creatinine GFR Calculation BUN/Creatinine Ratio Glucose POC Glucose 111 H 200 H 146 H Hemoglobin A1c Calculated Osmolality Calcium Magnesium 02/05/17 02/06/17 02/06/17 20:45 05:11 05:11 WBC 10.8 RBC 3.13 L Hgb 10.7 L Hct 31.0 L MCV 99.0 MCH 34 MCHC 34.5 RDW 14.4 Plt Count 93 L D MPV 12.3 H Neut % (Auto) 69.8 Lymph % (Auto) 18.9 L [place] % (Auto) 9.7 Eos % (Auto) 1.2 Baso % (Auto) 0.1 Neut # (Auto) 7.5 H Lymph # (Auto) 2.0 [place] # (Auto) 1.0 H Eos # (Auto) 0.1 Baso # (Auto) 0.0 Total Counted 100 Immature Gran % 0.3 Nucleated RBC % 0.0 Immature Gran # 0.03 Segmented Neutrophils 74 Lymphocytes 17 L Monocytes 7 Eosinophils 2 Nucleated RBCs # 0.00 Platelet Estimate Decreased Immature Plt Fraction 0.0 Hypochromasia 2+ Sodium Potassium Chloride Carbon Dioxide Anion Gap BUN Creatinine GFR Calculation BUN/Creatinine Ratio Glucose POC Glucose 116 H Hemoglobin A1c 6.9 H Calculated Osmolality Calcium Magnesium 02/06/17 Unknown WBC RBC Hgb Hct MCV MCH MCHC RDW Plt Count MPV Neut % (Auto) Lymph % (Auto) [place] % (Auto) Eos % (Auto) Baso % (Auto) Neut # (Auto) Lymph # (Auto) [place] # (Auto) Eos # (Auto) Baso # (Auto) Total Counted Immature Gran % Nucleated RBC % Immature Gran # Segmented Neutrophils Lymphocytes Monocytes Eosinophils Nucleated RBCs # Platelet Estimate Immature Plt Fraction Hypochromasia Sodium 142 Potassium 3.5 Chloride 105 Carbon Dioxide 31 Anion Gap 9.5 BUN 27 H Creatinine 0.80 GFR Calculation 99 BUN/Creatinine Ratio 33.00 H Glucose 73 L POC Glucose Hemoglobin A1c Calculated Osmolality 286.1 Calcium 7.9 L Magnesium 2.8 H Quality Measures - VTE Contraindication to Pharmacological VTE Prophylaxis: Already on Theraputic Agent , No Prophylaxis Needed Specialty Discharge - Follow Up or Referrals
[2017-02-06] MEDS: LISINOPRIL 5 MG TABLET PO SCH ×2 (08:26→20:51)
[2017-02-06] MEDS: FERROUS SULFATE 325 MG TABLET PO SCH (08:26)
[2017-02-06] MEDS: DOCUSATE SODIUM 100 MG CAPSULE PO SCH (08:26)
[2017-02-06] MEDS: ASPIRIN EC 325 MG TABLET PO SCH (08:26)
[2017-02-06] MEDS: PANTOPRAZOLE 40 MG TABLET PO SCH (08:26)
[2017-02-06] MEDS: METOPROLOL SUCCINATE XL 25 MG TABLET PO SCH ×2 (08:26→20:50)
[2017-02-06] MEDS: CHLORHEXIDINE 0.12% ORAL RINSE 60 ML BOTTLE SWISH/SPIT SCH ×2 (08:27→20:51)
[2017-02-06] MEDS: INSULIN LISPRO 100 UNIT/ML SUBCUT SCH ×4 (08:27→20:51)
[2017-02-06] MEDS: GLIMEPIRIDE 2 MG TABLET PO SCH ×2 (08:28→09:29)
--- NOTE | 2017-02-06 11:38 | Cardiology Progress Note ---
Assessment and Plan (1) S/P CABG x 3 Status: Acute Assessment and plan: SEE PLAN OF CARE LISTED BELOW. Current Visit: Yes (2) Coronary artery disease Status: Acute Assessment and plan: SEE PLAN OF CARE LISTED BELOW. Current Visit: Yes (3) Obstructive sleep apnea Status: Chronic Assessment and plan: SEE PLAN OF CARE LISTED BELOW. Current Visit: Yes (4) Diabetes mellitus Status: Chronic Assessment and plan: SEE PLAN OF CARE LISTED BELOW. Current Visit: Yes Qualifiers: Diabetes mellitus type: type 2 Diabetes mellitus complication status: with hyperglycemia Diabetes mellitus detention insulin use: without termite renewal inspector use Qualified Code(s): E11.65 - Type 2 diabetes mellitus with hyperglycemia (5) Hyperlipidemia Status: Chronic Assessment and plan: SEE PLAN OF CARE LISTED BELOW. Current Visit: Yes (6) Hypertension Status: Chronic Assessment and plan: SEE PLAN OF CARE LISTED BELOW. Current Visit: Yes Qualifiers: Hypertension type: essential hypertension Qualified Code(s): I10 - Essential (primary) hypertension (7) Thrombocytopenia Status: Acute Assessment and plan: SEE PLAN OF CARE LISTED BELOW. Current Visit: Yes (8) Hypokalemia Status: Acute Assessment and plan: SEE PLAN OF CARE LISTED BELOW. Current Visit: Yes Cardiology - PN: Subj Interval history: TIME CLOCK MECHANIC: new to Dr. Cadrona SUMMARY Mr. Matos is a 71-year-old WM who was not previously known to cardiology. He is admitted to the hospital with sudden onset chest pain, atypical. He had an abnormal stress test and underwent cardiac catheterization which revealed severe 3 vessel coronary artery disease. He was referred to Dr. Rose for CABG. He underwent CABG February 01, 2017 with a HESS to diagonal, SVG to obtuse marginal and SVG to right PDA. 2016 Mr. Matos is seen and examined on the telemetry unit. Post op day #5 from CABG with HESS to diagonal, SVG to obtuse marginal and SVG to right PDA. Patient is doing well postoperatively. He is without complaints this morning. Denies chest pain, heaviness or tightness. Denies shortness of breath or dyspnea on exertion. air sampling and monitoring reviewed. No overt arrhythmias. He is hemodynamically stable. Tolerating aspirin, beta-tono, SURAJ inhibitor and lipid-lowering agent well. He has been ambulating without difficulty. I have encouraged to increase activity as tolerated and to continue using incentive spirometry. Potassium is 3.5 today. This will be replaced per protocol. Will continue to optimize electrolytes to decrease patient's risk of postoperative atrial fibrillation. I will further discuss with Dr. Steele and await his additional recommendations. IMPRESSION/PLAN: 1. CORONARY ARTERY DISEASE, STATUS POST CABG X 3: Patient is post operative day #5 from CABG x3 with HESS to diagonal, SVG to obtuse marginal, and SVG to right PDA. Doing well postoperatively. Tolerating aspirin, beta-blockade, SURAJ inhibitor and lipid-lowering agent well. No evidence of arrhythmia on court monitor. Encourage incentive spirometry. Encourage increase in activity as tolerated. I will further discuss Dr. Steele and await his additional recommendations. 2. HYPERTENSION: Blood pressure is well controlled. Continue current plan of care. Tolerating beta-blockade and SURAJ inhibitor well. 3. DIABETES MELLITUS: Hospital medicine following. Hemoglobin A1c 6.9. 4. HYPERLIPIDEMIA: LDL 96. Statin was increased to high intensity this hospitalization. Patient will need repeat lipid panel in 4-6 weeks. 5. THROMBOCYTOPENIA - Monitor daily. 6. SOHAN - Dr. Warner has been consulted. Plan to follow-up as an outpatient. 7. HYPOKALEMIA - Replaced per protocol. Exam (Progress Note) - Constitutional Vitals: Period Temp Pulse Resp BP Sys/Espinal Pulse Ox Last 24 Hr 97.4 F-98.1 F 60-71 16-20 106-138/67-83 94-99 Exam: General: Appears well with no apparent distress. Pleasant and cooperative. Appears comfortable. HEENT: PERRL, normocephalic, atraumatic. Mucous membranes moist. No jaundice noted. Conjunctiva moist and clear, sclerae anicteric Neck: No JVD/HJR, no thyromegaly or lymphadenopathy noted. No carotid bruit appreciated Cardiac: Regular rate and rhythm. No murmur rub or gallop. Midsternal surgical incision healing well without signs of infection. Lungs: Clear to auscultation without accessory muscle use to assist the respiratory pattern. Requiring oxygen intermittently. Abdomen: Soft, bowel sounds present. Nontender and nondistended. No abdominal bruit or thrill noted. No masses noted. Extremities: No clubbing, cyanosis noted. Trace edema to bilateral lower extremities. Upper extremity pulses 2+. Lower extremity pulses 2+. Capillary refill less than 3 seconds. Surgical incision to bilateral lower extremities healing well without signs of infection. Marcos intact. Skin: No unusual lesions or rashes. No skin breakdown appreciated. Neuro: Awake, alert and oriented 3. Moves all extremities well without hemiparesis or paralysis. No essential tremor is appreciated. Result/EKG - Labs CBC & BMP: 02/06/17 05:11 02/06/17 Unknown Lab Results: I have reviewed the past 24 hour labs Labs: Laboratory Results - last 24 hr 02/05/17 02/05/17 02/06/17 15:33 20:45 05:11 WBC 10.8 RBC 3.13 L Hgb 10.7 L Hct 31.0 L MCV 99.0 MCH 34 MCHC 34.5 RDW 14.4 Plt Count 93 L D MPV 12.3 H Neut % (Auto) 69.8 Lymph % (Auto) 18.9 L [place] % (Auto) 9.7 Eos % (Auto) 1.2 Baso % (Auto) 0.1 Neut # (Auto) 7.5 H Lymph # (Auto) 2.0 [place] # (Auto) 1.0 H Eos # (Auto) 0.1 Baso # (Auto) 0.0 Total Counted 100 Immature Gran % 0.3 Nucleated RBC % 0.0 Immature Gran # 0.03 Segmented Neutrophils 74 Lymphocytes 17 L Monocytes 7 Eosinophils 2 Nucleated RBCs # 0.00 Platelet Estimate Decreased Immature Plt Fraction 0.0 Hypochromasia 2+ Sodium Potassium Chloride Carbon Dioxide Anion Gap BUN Creatinine GFR Calculation BUN/Creatinine Ratio Glucose POC Glucose 146 H 116 H Hemoglobin A1c Calculated Osmolality Calcium Magnesium 02/06/17 02/06/17 02/06/17 05:11 07:17 09:07 WBC RBC Hgb Hct MCV MCH MCHC RDW Plt Count MPV Neut % (Auto) Lymph % (Auto) [place] % (Auto) Eos % (Auto) Baso % (Auto) Neut # (Auto) Lymph # (Auto) [place] # (Auto) Eos # (Auto) Baso # (Auto) Total Counted Immature Gran % Nucleated RBC % Immature Gran # Segmented Neutrophils Lymphocytes Monocytes Eosinophils Nucleated RBCs # Platelet Estimate Immature Plt Fraction Hypochromasia Sodium Potassium Chloride Carbon Dioxide Anion Gap BUN Creatinine GFR Calculation BUN/Creatinine Ratio Glucose POC Glucose 68 L 199 H Hemoglobin A1c 6.9 H Calculated Osmolality Calcium Magnesium 02/06/17 02/06/17 11:28 Unknown WBC RBC Hgb Hct MCV MCH MCHC RDW Plt Count MPV Neut % (Auto) Lymph % (Auto) [place] % (Auto) Eos % (Auto) Baso % (Auto) Neut # (Auto) Lymph # (Auto) [place] # (Auto) Eos # (Auto) Baso # (Auto) Total Counted Immature Gran % Nucleated RBC % Immature Gran # Segmented Neutrophils Lymphocytes Monocytes Eosinophils Nucleated RBCs # Platelet Estimate Immature Plt Fraction Hypochromasia Sodium 142 Potassium 3.5 Chloride 105 Carbon Dioxide 31 Anion Gap 9.5 BUN 27 H Creatinine 0.80 GFR Calculation 99 BUN/Creatinine Ratio 33.00 H Glucose 73 L POC Glucose 140 H Hemoglobin A1c Calculated Osmolality 286.1 Calcium 7.9 L Magnesium 2.8 H Quality Measures - VTE Contraindication to Pharmacological VTE Prophylaxis: Already on Theraputic Agent , No Prophylaxis Needed Specialty Discharge - Follow Up or Referrals
[2017-02-06] MEDS: ROSUVASTATIN 20 MG TABLET PO SCH (20:50)
[2017-02-06] MEDS: INSULIN GLARGINE 100 UNIT/ML SUBCUT SCH (20:51)
[2017-02-06] MEDS: POTASSIUM CHLORIDE 20 MEQ TABLET PO PRN ×2 (21:35→23:10)
[2017-02-07 05:06] LABS: Basophils % 0.1 % (0.0-0.8); Eosinophils # 0.3 10*3/uL (0.0-0.87); Eosinophils % 3.5 % (0.00-10.9); Hematocrit 32.4 VOL% (42.0-52.0); Immature Granulocytes % 0.4 %; Immature Granulocytes Absolute 0.04 #; Lymphocytes # 2.2 10*3/uL (1.4-4.0); Lymphocytes % 23.8 % (21.2-54.2); Mean Corpuscular Hemoglobin 33 PG (27-34); Mean Corpuscular Volume 98.5 FL (87-102); Mean Platelet Volume 12.7 FL (9.6-12.0); Monocytes # 0.9 10*3/uL (0.11-0.8); Monocytes % 9.3 % (1.7-12.7); Neutrophils # 5.8 10*3/uL (1.4-7.4); Neutrophils % 62.9 % (38.7-73.9); Platelet Count 110 T/CUMM (130-400); Red Blood Count 3.29 MC/CUMM (3.8-5.5); Red Cell Distribution Width 14.3 % (9.3-17.3); White Blood Count 9.2 T/CUMM (4-12)
--- NOTE | 2017-02-07 06:18 | Cardiothoracic Progress Note ---
Cardiothoracic Subjective Interval history: Patient looks and feels better. Vital signs have been stable and is breathing comfortably. I think he may be ready for discharge either later today or tomorrow morning. I will see him again later this morning. Exam (Progress Note) - Constitutional Vitals: Period Temp Pulse Resp BP Sys/Espinal Pulse Ox Last 24 Hr 97.1 F-97.9 F 60-73 16-18 106-137/59-83 90-99 Result/EKG - Labs CBC & BMP: 02/07/17 04:04 02/06/17 Unknown Labs: Laboratory Results - last 24 hr 02/06/17 02/06/17 02/06/17 07:17 09:07 11:28 WBC RBC Hgb Hct MCV MCH MCHC RDW Plt Count MPV Neut % (Auto) Lymph % (Auto) [place] % (Auto) Eos % (Auto) Baso % (Auto) Neut # (Auto) Lymph # (Auto) [place] # (Auto) Eos # (Auto) Baso # (Auto) Immature Gran % Nucleated RBC % Immature Gran # Nucleated RBCs # Immature Plt Fraction POC Glucose 68 L 199 H 140 H 02/06/17 02/06/17 02/07/17 15:44 19:22 04:04 WBC 9.2 RBC 3.29 L Hgb 11.0 L Hct 32.4 L MCV 98.5 MCH 33 MCHC 34.0 RDW 14.3 Plt Count 110 L MPV 12.7 H Neut % (Auto) 62.9 Lymph % (Auto) 23.8 [place] % (Auto) 9.3 Eos % (Auto) 3.5 Baso % (Auto) 0.1 Neut # (Auto) 5.8 Lymph # (Auto) 2.2 [place] # (Auto) 0.9 H Eos # (Auto) 0.3 Baso # (Auto) 0.0 Immature Gran % 0.4 Nucleated RBC % 0.0 Immature Gran # 0.04 Nucleated RBCs # 0.00 Immature Plt Fraction 0.0 POC Glucose 181 H 177 H Quality Measures - VTE Contraindication to Pharmacological VTE Prophylaxis: Already on Theraputic Agent , No Prophylaxis Needed Specialty Discharge - Follow Up or Referrals
[2017-02-07 06:48] LABS: Alanine Aminotransferase 64 U/L (16-61); Alkaline Phosphatase 94 U/L (45-117); Aspartate Amino Transferase 42 U/L (0-37); Bilirubin,Indirect 0.9 MG/DL (0.0-1.0); Blood Urea Nitrogen 19 MG/DL (7-18); Calcium 8.1 MG/DL (8.5-10.1); Glucose 85 MG/DL (74-106); Magnesium 2.4 MG/DL (1.8-2.4); Osmolality,Calculated 283.1 MOS/KG (273-304); Potassium 3.7 MMOL/L (3.5-5.1); Sodium 142 MMOL/L (136-145); Total Protein 5.2 G/DL (6.4-8.3)
--- NOTE | 2017-02-07 07:20 | XRay Report ---
Exam: XR chest 2V Date: 02/07/2017 4:00 AM Indication: Shortness of breath Comparison: 02/05/2017 Technical: PA lateral Findings: Cardiomegaly is present with previous sternotomy. A right IJ catheter is present. Improving aeration with decreasing interstitial edema present with small tiny right pleural effusion. No pneumothorax. Mediastinum is intact. Impression: 1. Improving aeration with decreased interstitial edema however small effusion persist in the right base 2. Underlying cardiomegaly and previous sternotomy with stable position of the right IJ catheter PROCEDURE INTERPRETED AT [facility] DEPARTMENT OF RADIOLOGY Final Report Signed by: Dr. Sergio Vidal
[2017-02-07] MEDS: INSULIN LISPRO 100 UNIT/ML SUBCUT SCH ×4 (08:11→20:51)
[2017-02-07] MEDS: PANTOPRAZOLE 40 MG TABLET PO SCH (08:50)
[2017-02-07] MEDS: DOCUSATE SODIUM 100 MG CAPSULE PO SCH (08:50)
[2017-02-07] MEDS: ASPIRIN EC 325 MG TABLET PO SCH (08:50)
[2017-02-07] MEDS: GLIMEPIRIDE 2 MG TABLET PO SCH (08:50)
[2017-02-07] MEDS: METOPROLOL SUCCINATE XL 25 MG TABLET PO SCH ×2 (08:50→20:50)
[2017-02-07] MEDS: LISINOPRIL 5 MG TABLET PO SCH ×2 (08:50→20:50)
[2017-02-07] MEDS: FERROUS SULFATE 325 MG TABLET PO SCH (08:51)
[2017-02-07] MEDS: CHLORHEXIDINE 0.12% ORAL RINSE 60 ML BOTTLE SWISH/SPIT SCH ×2 (08:51→20:50)
--- NOTE | 2017-02-07 11:56 | Cardiology Progress Note ---
<Charlene Vickers - Last Filed: 02/07/17 11:53> Assessment and Plan (1) S/P CABG x 3 Status: Acute Assessment and plan: SEE PLAN OF CARE LISTED BELOW. Current Visit: Yes (2) Coronary artery disease Status: Acute Assessment and plan: SEE PLAN OF CARE LISTED BELOW. Current Visit: Yes (3) Obstructive sleep apnea Status: Chronic Assessment and plan: SEE PLAN OF CARE LISTED BELOW. Current Visit: Yes (4) Diabetes mellitus Status: Chronic Assessment and plan: SEE PLAN OF CARE LISTED BELOW. Current Visit: Yes Qualifiers: Diabetes mellitus type: type 2 Diabetes mellitus complication status: with hyperglycemia Diabetes mellitus intermediate accountant insulin use: without intermediate accountant use Qualified Code(s): E11.65 - Type 2 diabetes mellitus with hyperglycemia (5) Hyperlipidemia Status: Chronic Assessment and plan: SEE PLAN OF CARE LISTED BELOW. Current Visit: Yes (6) Hypertension Status: Chronic Assessment and plan: SEE PLAN OF CARE LISTED BELOW. Current Visit: Yes Qualifiers: Hypertension type: essential hypertension Qualified Code(s): I10 - Essential (primary) hypertension (7) Thrombocytopenia Status: Acute Assessment and plan: SEE PLAN OF CARE LISTED BELOW. Current Visit: Yes (8) Hypokalemia Status: Acute Assessment and plan: SEE PLAN OF CARE LISTED BELOW. Current Visit: Yes Cardiology - PN: Subj Interval history: DIRECTOR RECREATION: new to Dr. Cardona SUMMARY Mr. Matos is a 71-year-old WM who was not previously known to cardiology. He is admitted to the hospital with sudden onset chest pain, atypical. He had an abnormal stress test and underwent cardiac catheterization which revealed severe 3 vessel coronary artery disease. He was referred to Dr. Rose for CABG. He underwent CABG February 01, 2017 with a HESS to diagonal, SVG to obtuse marginal and SVG to right PDA. 2016 Mr. Matos is seen and examined on the telemetry unit. Post op day #6 from CABG with HESS to diagonal, SVG to obtuse marginal and SVG to right PDA. Patient continues to do well postoperatively. He is without complaints this morning. Denies chest pain, heaviness or tightness. Denies shortness of breath or dyspnea on exertion. He reports that he has walked several times around the telemetry unit this morning without difficulty. automotive mechanical engineer reviewed. No overt arrhythmias. He is hemodynamically stable. Tolerating aspirin, beta-tono, SURAJ inhibitor and lipid-lowering agent well. Potassium is 3.7 today. Continue to replace per protocol. Troponin continues to trend down. According to Dr. Segovia note, patient may be discharged later today or tomorrow morning if he continues to do well. I will further discuss with Dr. Steele and await his additional recommendations. IMPRESSION/PLAN: 1. CORONARY ARTERY DISEASE, STATUS POST CABG X 3: Patient is post operative day #6 from CABG x3 with HESS to diagonal, SVG to obtuse marginal, and SVG to right PDA. Doing well postoperatively. Tolerating aspirin, beta-blockade, SURAJ inhibitor and lipid-lowering agent well. No evidence of arrhythmia on form coverer. Encourage incentive spirometry. Encourage increase in activity as tolerated. I will further discuss Dr. Steele and await his additional recommendations. 2. HYPERTENSION: Blood pressure is well controlled. Continue current plan of care. Tolerating beta-blockade and SURAJ inhibitor well. 3. DIABETES MELLITUS: Hospital medicine following. Hemoglobin A1c 6.9. 4. HYPERLIPIDEMIA: LDL 96. Continue lipid-lowering agent. Patient will need repeat lipid panel in 4-6 weeks. 5. THROMBOCYTOPENIA - Improving. Monitor daily. 6. SOHAN - Dr. Warner has been consulted. Plan to follow-up as an outpatient. 7. HYPOKALEMIA - Improving. Replaced per protocol. Exam (Progress Note) - Constitutional Vitals: Period Temp Pulse Resp BP Sys/Espinal Pulse Ox Last 24 Hr 97.1 F-97.9 F 62-92 16-20 112-137/59-78 90-98 Exam: General: Appears well with no apparent distress. Pleasant and cooperative. Appears comfortable. HEENT: PERRL, normocephalic, atraumatic. Mucous membranes moist. No jaundice noted. Conjunctiva moist and clear, sclerae anicteric Neck: No JVD/HJR, no thyromegaly or lymphadenopathy noted. No carotid bruit appreciated Cardiac: Regular rate and rhythm. No murmur rub or gallop. Midsternal surgical incision healing well without signs of infection. Lungs: Clear to auscultation without accessory muscle use to assist the respiratory pattern. Requiring oxygen intermittently. Abdomen: Soft, bowel sounds present. Nontender and nondistended. No abdominal bruit or thrill noted. No masses noted. Extremities: No clubbing, cyanosis noted. Trace edema to bilateral lower extremities. Upper extremity pulses 2+. Lower extremity pulses 2+. Capillary refill less than 3 seconds. Surgical incision to bilateral lower extremities healing well without signs of infection. Marcos intact. Skin: No unusual lesions or rashes. No skin breakdown appreciated. Neuro: Awake, alert and oriented 3. Moves all extremities well without hemiparesis or paralysis. No essential tremor is appreciated. Result/EKG - Labs CBC & BMP: 02/07/17 04:04 02/07/17 04:04 Lab Results: I have reviewed the past 24 hour labs Labs: Laboratory Results - last 24 hr 02/06/17 02/06/17 02/07/17 15:44 19:22 04:04 WBC 9.2 RBC 3.29 L Hgb 11.0 L Hct 32.4 L MCV 98.5 MCH 33 MCHC 34.0 RDW 14.3 Plt Count 110 L MPV 12.7 H Neut % (Auto) 62.9 Lymph % (Auto) 23.8 [place] % (Auto) 9.3 Eos % (Auto) 3.5 Baso % (Auto) 0.1 Neut # (Auto) 5.8 Lymph # (Auto) 2.2 [place] # (Auto) 0.9 H Eos # (Auto) 0.3 Baso # (Auto) 0.0 Immature Gran % 0.4 Nucleated RBC % 0.0 Immature Gran # 0.04 Nucleated RBCs # 0.00 Immature Plt Fraction 0.0 Sodium Potassium Chloride Carbon Dioxide Anion Gap BUN Creatinine GFR Calculation BUN/Creatinine Ratio Glucose POC Glucose 181 H 177 H Calculated Osmolality Calcium Magnesium Total Bilirubin Direct Bilirubin Indirect Bilirubin AST ALT Alkaline Phosphatase Total Creatine Kinase CK-MB (CK-2) Troponin I Total Protein Albumin Globulin Albumin/Globulin Ratio 02/07/17 02/07/17 04:04 07:08 WBC RBC Hgb Hct MCV MCH MCHC RDW Plt Count MPV Neut % (Auto) Lymph % (Auto) [place] % (Auto) Eos % (Auto) Baso % (Auto) Neut # (Auto) Lymph # (Auto) [place] # (Auto) Eos # (Auto) Baso # (Auto) Immature Gran % Nucleated RBC % Immature Gran # Nucleated RBCs # Immature Plt Fraction Sodium 142 Potassium 3.7 Chloride 106 Carbon Dioxide 30 Anion Gap 9.7 BUN 19 H Creatinine 0.80 GFR Calculation 99 BUN/Creatinine Ratio 23.00 H Glucose 85 POC Glucose 95 Calculated Osmolality 283.1 Calcium 8.1 L Magnesium 2.4 Total Bilirubin 1.10 H Direct Bilirubin 0.230 H Indirect Bilirubin 0.9 AST 42 H ALT 64 H Alkaline Phosphatase 94 Total Creatine Kinase 183 D CK-MB (CK-2) 1.7 Troponin I 8.240 H D Total Protein 5.2 L Albumin 3.0 L Globulin 2.2 L Albumin/Globulin Ratio 1.3 Quality Measures - VTE Contraindication to Pharmacological VTE Prophylaxis: Already on Theraputic Agent , No Prophylaxis Needed Specialty Discharge - Follow Up or Referrals Follow up with: Rigoberto Cardona MD [Physician] - 2 Weeks () <Sulaiman Steele Chad - Last Filed: 02/07/17 17:12> Cardiology - PN: Subj Interval history: Patient personally interviewed and examined and chart reviewed. Discussed this case with Charlene Vickers HOST AND HOSTESS. Agree with the evaluation and assessment and plan. The patient is doing well post CABG and is on day 6 postop. His appetite is improving is having good bowel movements now. He is actually been ambulating now even down the first floor. He has had no dysrhythmias. His vital signs been stable. I think this patient is reaching maximal hospital benefit and should do well at home. Exam (Progress Note) - Constitutional Vitals: Period Temp Pulse Resp BP Sys/Espinal Pulse Ox Last 24 Hr 97.1 F-99.1 F 62-92 16-20 112-137/61-78 90-98 Result/EKG - Labs CBC & BMP: 02/07/17 04:04 02/07/17 04:04 Labs: Laboratory Results - last 24 hr 02/06/17 02/07/17 02/07/17 19:22 04:04 04:04 WBC 9.2 RBC 3.29 L Hgb 11.0 L Hct 32.4 L MCV 98.5 MCH 33 MCHC 34.0 RDW 14.3 Plt Count 110 L MPV 12.7 H Neut % (Auto) 62.9 Lymph % (Auto) 23.8 [place] % (Auto) 9.3 Eos % (Auto) 3.5 Baso % (Auto) 0.1 Neut # (Auto) 5.8 Lymph # (Auto) 2.2 [place] # (Auto) 0.9 H Eos # (Auto) 0.3 Baso # (Auto) 0.0 Immature Gran % 0.4 Nucleated RBC % 0.0 Immature Gran # 0.04 Nucleated RBCs # 0.00 Immature Plt Fraction 0.0 Sodium 142 Potassium 3.7 Chloride 106 Carbon Dioxide 30 Anion Gap 9.7 BUN 19 H Creatinine 0.80 GFR Calculation 99 BUN/Creatinine Ratio 23.00 H Glucose 85 POC Glucose 177 H Calculated Osmolality 283.1 Calcium 8.1 L Magnesium 2.4 Total Bilirubin 1.10 H Direct Bilirubin 0.230 H Indirect Bilirubin 0.9 AST 42 H ALT 64 H Alkaline Phosphatase 94 Total Creatine Kinase 183 D CK-MB (CK-2) 1.7 Troponin I 8.240 H D Total Protein 5.2 L Albumin 3.0 L Globulin 2.2 L Albumin/Globulin Ratio 1.3 02/07/17 02/07/17 02/07/17 07:08 11:36 14:54 WBC RBC Hgb Hct MCV MCH MCHC RDW Plt Count MPV Neut % (Auto) Lymph % (Auto) [place] % (Auto) Eos % (Auto) Baso % (Auto) Neut # (Auto) Lymph # (Auto) [place] # (Auto) Eos # (Auto) Baso # (Auto) Immature Gran % Nucleated RBC % Immature Gran # Nucleated RBCs # Immature Plt Fraction Sodium Potassium Chloride Carbon Dioxide Anion Gap BUN Creatinine GFR Calculation BUN/Creatinine Ratio Glucose POC Glucose 95 136 H 236 H Calculated Osmolality Calcium Magnesium Total Bilirubin Direct Bilirubin Indirect Bilirubin AST ALT Alkaline Phosphatase Total Creatine Kinase CK-MB (CK-2) Troponin I Total Protein Albumin Globulin Albumin/Globulin Ratio
--- NOTE | 2017-02-07 12:04 | Hospitalist Progress Note ---
Assessment and Plan (1) Hypertension Status: Chronic Assessment and plan: Continue medications. Improved control. Current Visit: Yes Qualifiers: Hypertension type: essential hypertension Qualified Code(s): I10 - Essential (primary) hypertension (2) Diabetes mellitus Status: Chronic Assessment and plan: Continue Lantus 10 units subcu daily. hemoglobin A1c. 6.9 Continue sliding scale insulin and Accu-Cheks. Continue Amaryl. Current Visit: Yes Qualifiers: Diabetes mellitus type: type 2 Diabetes mellitus complication status: with hyperglycemia Diabetes mellitus terminal block assembler insulin use: without terminal block assembler use Qualified Code(s): E11.65 - Type 2 diabetes mellitus with hyperglycemia (3) Hyperlipidemia Status: Chronic Current Visit: Yes Qualifiers: Hyperlipidemia type: unspecified Qualified Code(s): E78.5 - Hyperlipidemia , unspecified (4) Coronary artery disease Status: Acute Current Visit: Yes (5) Obstructive sleep apnea Status: Chronic Current Visit: Yes (6) S/P CABG x 3 Status: Acute Assessment and plan: Routine postop care. Current Visit: Yes Hospitalist: Subjective Interval history: Patient seen and examined. No acute events overnight. Case discussed with nursing staff. Labs reviewed. Blood sugars improved. Exam - Constitutional Vitals: Period Temp Pulse Resp BP Sys/Espinal Pulse Ox Last 24 Hr 97.1 F-97.9 F 62-92 16-20 112-137/59-78 90-98 Exam: Constitutional System: No distress. No tremulousness. Head: Normocephalic, atraumatic. Ears, Nose and Throat System: No pain or tenderness. No epistaxis or discharge Eyes System: Pupils equal, round, and reactive. Extraocular muscles intact. Neck: Supple, without adenopathy, No jugular venous distention. Respiratory System: Chest clear to auscultation. Cardiovascular System: Heart with regular rate and rhythm. No murmur. Postop changes noted GI System: Abdomen soft, nontender. Normo active bowel sounds present. Musculoskeletal System: limbs with no pedal edema. Full distal pulses. Normal capillary refill. Neurological System: No discernable sensory deficit. No aphasia Psychiatric System: Conversation is rational Results - Labs CBC & BMP: 02/07/17 04:04 02/07/17 04:04 Lab Results: I have reviewed the past 24 hour labs Quality Measures - VTE Contraindication to Pharmacological VTE Prophylaxis: Already on Theraputic Agent , No Prophylaxis Needed Specialty Discharge - Follow Up or Referrals Follow up with: Rigoberto Cardona MD [Physician] - 2 Weeks ()
[2017-02-07] MEDS: ROSUVASTATIN 20 MG TABLET PO SCH (20:50)
[2017-02-07] MEDS: INSULIN GLARGINE 100 UNIT/ML SUBCUT SCH (20:51)
[2017-02-08 05:07] LABS: Basophils % 0.1 % (0.0-0.8); Eosinophils # 0.3 10*3/uL (0.0-0.87); Hematocrit 34.6 VOL% (42.0-52.0); Hemoglobin 12.1 GM/DL (14.0-18.0); Immature Granulocytes % 0.6 %; Immature Granulocytes Absolute 0.06 #; Lymphocytes # 1.8 10*3/uL (1.4-4.0); Lymphocytes % 19.1 % (21.2-54.2); Mean Corpuscular Hemoglobin 34 PG (27-34); Mean Corpuscular Volume 97.2 FL (87-102); Mean Platelet Volume 12.1 FL (9.6-12.0); Monocytes # 0.9 10*3/uL (0.11-0.8); Neutrophils # 6.3 10*3/uL (1.4-7.4); Neutrophils % 67.2 % (38.7-73.9); Platelet Count 132 T/CUMM (130-400); Red Blood Count 3.56 MC/CUMM (3.8-5.5); Red Cell Distribution Width 14.1 % (9.3-17.3); White Blood Count 9.3 T/CUMM (4-12)
[2017-02-08 05:41] LABS: Alanine Aminotransferase 63 U/L (16-61); Albumin 3.1 G/DL (3.4-5.0); Alkaline Phosphatase 101 U/L (45-117); Aspartate Amino Transferase 36 U/L (0-37); Bilirubin,Indirect 0.6 MG/DL (0.0-1.0); Blood Urea Nitrogen 15 MG/DL (7-18); Calcium 8.1 MG/DL (8.5-10.1); Glucose 115 MG/DL (74-106); Magnesium 2.4 MG/DL (1.8-2.4); Osmolality,Calculated 278.5 MOS/KG (273-304); Potassium 3.7 MMOL/L (3.5-5.1); Sodium 139 MMOL/L (136-145); Total Protein 5.6 G/DL (6.4-8.3)
--- NOTE | 2017-02-08 07:19 | Order Completion Report ---
See report scanned to EMR
[2017-02-08] MEDS: INSULIN LISPRO 100 UNIT/ML SUBCUT SCH ×4 (08:45→21:36)
--- NOTE | 2017-02-08 08:45 | XRay Report ---
XR chest 2V Date: 02/08/2017 4:00 AM History: Shortness of breath Comparison: 02/07/2017 Technique: PA and lateral chest Findings: The heart is minimally enlarged with prior median sternotomy. Stable right IJ CVP line. Persistent relative elevation of the right hemidiaphragm with residual atelectasis and small pleural effusions at the lung bases. Left pneumothorax which measures 22 mm from the pleural line to the lung apex. There is an additional right pneumothorax which measures 24 mm from the pleural line to the lung apex. Stable mediastinum and osseous structures. Impression: Status post median sternotomy with residual atelectasis at the lung bases with small pleural effusions. Small bilateral pneumothoraces that measure 24 mm on the right and 22 mm on the left from the pleural line to the lung apex. This report was called the patient's nurse Jay at 8:45 AM on 02/07/2017. Critical test results PROCEDURE INTERPRETED AT [facility] DEPARTMENT OF RADIOLOGY Final Report Signed by: Dr. Sandra Zayas
[2017-02-08] MEDS: GLIMEPIRIDE 2 MG TABLET PO SCH (08:46)
[2017-02-08] MEDS: METOPROLOL SUCCINATE XL 25 MG TABLET PO SCH ×2 (08:46→21:36)
[2017-02-08] MEDS: CHLORHEXIDINE 0.12% ORAL RINSE 60 ML BOTTLE SWISH/SPIT SCH ×2 (08:46→21:37)
[2017-02-08] MEDS: ASPIRIN EC 325 MG TABLET PO SCH (08:46)
[2017-02-08] MEDS: LISINOPRIL 5 MG TABLET PO SCH ×2 (08:46→21:36)
[2017-02-08] MEDS: FERROUS SULFATE 325 MG TABLET PO SCH (08:46)
[2017-02-08] MEDS: PANTOPRAZOLE 40 MG TABLET PO SCH (08:46)
[2017-02-08] MEDS: DOCUSATE SODIUM 100 MG CAPSULE PO SCH (08:46)
--- NOTE | 2017-02-08 08:57 | Cardiothoracic Progress Note ---
Cardiothoracic Subjective Interval history: Patient looks and feels well this morning. Vital signs are stable and is breathing comfortably and has been off O2 since yesterday. His chest x-ray today is read by radiology as showing small bilateral apical pneumothoraces. I think that these were present yesterday but they were difficult to see and are difficult even to see on today's films. He is otherwise ready to go home but I would feel a little better about keeping him another 24 hours and repeating his chest x-ray in the morning before sending him home. Otherwise his progress is satisfactory. Exam (Progress Note) - Constitutional Vitals: Period Temp Pulse Resp BP Sys/Espinal Pulse Ox Last 24 Hr 97.1 F-99.1 F 62-77 16-20 108-141/57-71 92-97 Result/EKG - Labs CBC & BMP: 02/08/17 04:57 02/08/17 04:57 Labs: Laboratory Results - last 24 hr 02/07/17 02/07/17 02/07/17 11:36 14:54 19:07 WBC RBC Hgb Hct MCV MCH MCHC RDW Plt Count MPV Neut % (Auto) Lymph % (Auto) [place] % (Auto) Eos % (Auto) Baso % (Auto) Neut # (Auto) Lymph # (Auto) [place] # (Auto) Eos # (Auto) Baso # (Auto) Immature Gran % Nucleated RBC % Immature Gran # Nucleated RBCs # Immature Plt Fraction Sodium Potassium Chloride Carbon Dioxide Anion Gap BUN Creatinine GFR Calculation BUN/Creatinine Ratio Glucose POC Glucose 136 H 236 H 169 H Calculated Osmolality Calcium Magnesium Total Bilirubin Direct Bilirubin Indirect Bilirubin AST ALT Alkaline Phosphatase Total Creatine Kinase CK-MB (CK-2) Troponin I Total Protein Albumin Globulin Albumin/Globulin Ratio 02/08/17 02/08/17 02/08/17 04:52 04:57 04:57 WBC 9.3 RBC 3.56 L Hgb 12.1 L Hct 34.6 L MCV 97.2 MCH 34 MCHC 35.0 RDW 14.1 Plt Count 132 MPV 12.1 H Neut % (Auto) 67.2 Lymph % (Auto) 19.1 L [place] % (Auto) 10.0 Eos % (Auto) 3.0 Baso % (Auto) 0.1 Neut # (Auto) 6.3 Lymph # (Auto) 1.8 [place] # (Auto) 0.9 H Eos # (Auto) 0.3 Baso # (Auto) 0.0 Immature Gran % 0.6 Nucleated RBC % 0.0 Immature Gran # 0.06 Nucleated RBCs # 0.00 Immature Plt Fraction 0.0 Sodium 139 Potassium 3.7 Chloride 104 Carbon Dioxide 28 Anion Gap 10.7 BUN 15 Creatinine 0.80 GFR Calculation 99 BUN/Creatinine Ratio 18.00 Glucose 115 H POC Glucose 126 H Calculated Osmolality 278.5 Calcium 8.1 L Magnesium 2.4 Total Bilirubin 0.90 Direct Bilirubin 0.300 H Indirect Bilirubin 0.6 AST 36 ALT 63 H Alkaline Phosphatase 101 Total Creatine Kinase 128 D CK-MB (CK-2) 2.1 Troponin I 4.900 H D Total Protein 5.6 L Albumin 3.1 L Globulin 2.5 Albumin/Globulin Ratio 1.2 02/08/17 08:25 WBC RBC Hgb Hct MCV MCH MCHC RDW Plt Count MPV Neut % (Auto) Lymph % (Auto) [place] % (Auto) Eos % (Auto) Baso % (Auto) Neut # (Auto) Lymph # (Auto) [place] # (Auto) Eos # (Auto) Baso # (Auto) Immature Gran % Nucleated RBC % Immature Gran # Nucleated RBCs # Immature Plt Fraction Sodium Potassium Chloride Carbon Dioxide Anion Gap BUN Creatinine GFR Calculation BUN/Creatinine Ratio Glucose POC Glucose 139 H Calculated Osmolality Calcium Magnesium Total Bilirubin Direct Bilirubin Indirect Bilirubin AST ALT Alkaline Phosphatase Total Creatine Kinase CK-MB (CK-2) Troponin I Total Protein Albumin Globulin Albumin/Globulin Ratio Quality Measures - VTE Contraindication to Pharmacological VTE Prophylaxis: Already on Theraputic Agent , No Prophylaxis Needed Specialty Discharge - Follow Up or Referrals Follow up with: Rigoberto Cardona MD [Physician] - 2 Weeks ()
--- NOTE | 2017-02-08 10:59 | Cardiology Progress Note ---
<Charlene Vickers - Last Filed: 02/08/17 10:41> Assessment and Plan (1) S/P CABG x 3 Status: Acute Assessment and plan: SEE PLAN OF CARE LISTED BELOW. Current Visit: Yes (2) Coronary artery disease Status: Acute Assessment and plan: SEE PLAN OF CARE LISTED BELOW. Current Visit: Yes (3) Obstructive sleep apnea Status: Chronic Assessment and plan: SEE PLAN OF CARE LISTED BELOW. Current Visit: Yes (4) Diabetes mellitus Status: Chronic Assessment and plan: SEE PLAN OF CARE LISTED BELOW. Current Visit: Yes Qualifiers: Diabetes mellitus type: type 2 Diabetes mellitus complication status: with hyperglycemia Diabetes mellitus termite renewal inspector insulin use: without termite renewal inspector use Qualified Code(s): E11.65 - Type 2 diabetes mellitus with hyperglycemia (5) Hyperlipidemia Status: Chronic Assessment and plan: SEE PLAN OF CARE LISTED BELOW. Current Visit: Yes Qualifiers: Hyperlipidemia type: unspecified Qualified Code(s): E78.5 - Hyperlipidemia , unspecified (6) Hypertension Status: Chronic Assessment and plan: SEE PLAN OF CARE LISTED BELOW. Current Visit: Yes Qualifiers: Hypertension type: essential hypertension Qualified Code(s): I10 - Essential (primary) hypertension (7) Thrombocytopenia Status: Acute Assessment and plan: SEE PLAN OF CARE LISTED BELOW. Current Visit: Yes (8) Hypokalemia Status: Acute Assessment and plan: SEE PLAN OF CARE LISTED BELOW. Current Visit: Yes (9) Bilateral pneumothoraces Status: Acute Assessment and plan: SEE PLAN OF CARE LISTED BELOW. Current Visit: Yes Cardiology - PN: Subj Interval history: CRABBER: new to Dr. Cardona SUMMARY Mr. Matos is a 71-year-old WM who was not previously known to cardiology. He is admitted to the hospital with sudden onset chest pain, atypical. He had an abnormal stress test and underwent cardiac catheterization which revealed severe 3 vessel coronary artery disease. He was referred to Dr. Rose for CABG. He underwent CABG February 01, 2017 with a HESS to diagonal, SVG to obtuse marginal and SVG to right PDA. 2016 Mr. Matos is seen and examined on the telemetry unit. Post op day #7 from CABG with HESS to diagonal, SVG to obtuse marginal and SVG to right PDA. He is hemodynamically stable. Doing well on room air this morning. Patient had chest x-ray this morning which revealed small bilateral pneumothoraces. Dr. Rose feels as though these were present yesterday but were difficult to see. He is otherwise ready for discharge home. Dr. Rose with a little bit about giving him at least another 24 hours and repeat chest x-ray in the morning. Patient is asymptomatic. Denies chest pain, heaviness or tightness. Denies shortness of breath or dyspnea on exertion. He has been without overt arrhythmia. Hemodynamically stable. Tolerating aspirin, beta-tono, SURAJ inhibitor and lipid-lowering agent well. Potassium is 3.7 today. Continue to replace per protocol. Troponin continues to trend down. Patient may be a little for discharge tomorrow morning if x-ray improves. I will discuss with Dr. Steele and await his additional recommendations. REVIEW OF SYSTEMS: Denies chest pain, heaviness or tightness. Denies heart racing or palpitations. Denies shortness of breath, dyspnea on exertion, pain with inspiration IMPRESSION/PLAN: 1. CORONARY ARTERY DISEASE, STATUS POST CABG X 3: Patient is post operative day #7 from CABG x3 with HESS to diagonal, SVG to obtuse marginal, and SVG to right PDA. Doing well postoperatively. Tolerating aspirin, beta-blockade, SURAJ inhibitor and lipid-lowering agent well. No evidence of arrhythmia on equipment monitor phototypesetting. Encourage incentive spirometry. Encourage increase in activity as tolerated. I will further discuss Dr. Steele and await his additional recommendations. 2. HYPERTENSION: Blood pressure is well controlled. Continue current plan of care. Tolerating beta-blockade and SURAJ inhibitor well. 3. DIABETES MELLITUS: Hospital medicine following. Hemoglobin A1c 6.9. 4. HYPERLIPIDEMIA: LDL 96. Continue lipid-lowering agent. Patient will need repeat lipid panel in 4-6 weeks. 5. THROMBOCYTOPENIA - Resolved. 6. SOHAN - Dr. Warner has been consulted. Plan to follow-up as an outpatient. 7. HYPOKALEMIA - Improving. Continue to replaced per protocol. 8. SMALL BILATERAL PNEUMOTHORACES - Patient is asymptomatic. Repeat chest x- ray in the morning. Exam (Progress Note) - Constitutional Vitals: Period Temp Pulse Resp BP Sys/Espinal Pulse Ox Last 24 Hr 97.1 F-99.1 F 62-77 16-20 108-141/57-71 92-97 Exam: General: Appears well with no apparent distress. Pleasant and cooperative. Appears comfortable. HEENT: PERRL, normocephalic, atraumatic. Mucous membranes moist. No jaundice noted. Conjunctiva moist and clear, sclerae anicteric Neck: No JVD/HJR, no thyromegaly or lymphadenopathy noted. No carotid bruit appreciated Cardiac: Regular rate and rhythm. No murmur rub or gallop. Midsternal surgical incision healing well without signs of infection. Lungs: Clear to auscultation without accessory muscle use to assist the respiratory pattern. Requiring oxygen intermittently. Abdomen: Soft, bowel sounds present. Nontender and nondistended. No abdominal bruit or thrill noted. No masses noted. Extremities: No clubbing, cyanosis noted. Trace edema to bilateral lower extremities. Upper extremity pulses 2+. Lower extremity pulses 2+. Capillary refill less than 3 seconds. Surgical incision to bilateral lower extremities healing well without signs of infection. Skin: No unusual lesions or rashes. No skin breakdown appreciated. Neuro: Awake, alert and oriented 3. Moves all extremities well without hemiparesis or paralysis. No essential tremor is appreciated. Result/EKG - Labs CBC & BMP: 02/08/17 04:57 02/08/17 04:57 Lab Results: I have reviewed the past 24 hour labs Labs: Laboratory Results - last 24 hr 02/07/17 02/07/17 02/07/17 11:36 14:54 19:07 WBC RBC Hgb Hct MCV MCH MCHC RDW Plt Count MPV Neut % (Auto) Lymph % (Auto) [place] % (Auto) Eos % (Auto) Baso % (Auto) Neut # (Auto) Lymph # (Auto) [place] # (Auto) Eos # (Auto) Baso # (Auto) Immature Gran % Nucleated RBC % Immature Gran # Nucleated RBCs # Immature Plt Fraction Sodium Potassium Chloride Carbon Dioxide Anion Gap BUN Creatinine GFR Calculation BUN/Creatinine Ratio Glucose POC Glucose 136 H 236 H 169 H Calculated Osmolality Calcium Magnesium Total Bilirubin Direct Bilirubin Indirect Bilirubin AST ALT Alkaline Phosphatase Total Creatine Kinase CK-MB (CK-2) Troponin I Total Protein Albumin Globulin Albumin/Globulin Ratio 02/08/17 02/08/17 02/08/17 04:52 04:57 04:57 WBC 9.3 RBC 3.56 L Hgb 12.1 L Hct 34.6 L MCV 97.2 MCH 34 MCHC 35.0 RDW 14.1 Plt Count 132 MPV 12.1 H Neut % (Auto) 67.2 Lymph % (Auto) 19.1 L [place] % (Auto) 10.0 Eos % (Auto) 3.0 Baso % (Auto) 0.1 Neut # (Auto) 6.3 Lymph # (Auto) 1.8 [place] # (Auto) 0.9 H Eos # (Auto) 0.3 Baso # (Auto) 0.0 Immature Gran % 0.6 Nucleated RBC % 0.0 Immature Gran # 0.06 Nucleated RBCs # 0.00 Immature Plt Fraction 0.0 Sodium 139 Potassium 3.7 Chloride 104 Carbon Dioxide 28 Anion Gap 10.7 BUN 15 Creatinine 0.80 GFR Calculation 99 BUN/Creatinine Ratio 18.00 Glucose 115 H POC Glucose 126 H Calculated Osmolality 278.5 Calcium 8.1 L Magnesium 2.4 Total Bilirubin 0.90 Direct Bilirubin 0.300 H Indirect Bilirubin 0.6 AST 36 ALT 63 H Alkaline Phosphatase 101 Total Creatine Kinase 128 D CK-MB (CK-2) 2.1 Troponin I 4.900 H D Total Protein 5.6 L Albumin 3.1 L Globulin 2.5 Albumin/Globulin Ratio 1.2 02/08/17 08:25 WBC RBC Hgb Hct MCV MCH MCHC RDW Plt Count MPV Neut % (Auto) Lymph % (Auto) [place] % (Auto) Eos % (Auto) Baso % (Auto) Neut # (Auto) Lymph # (Auto) [place] # (Auto) Eos # (Auto) Baso # (Auto) Immature Gran % Nucleated RBC % Immature Gran # Nucleated RBCs # Immature Plt Fraction Sodium Potassium Chloride Carbon Dioxide Anion Gap BUN Creatinine GFR Calculation BUN/Creatinine Ratio Glucose POC Glucose 139 H Calculated Osmolality Calcium Magnesium Total Bilirubin Direct Bilirubin Indirect Bilirubin AST ALT Alkaline Phosphatase Total Creatine Kinase CK-MB (CK-2) Troponin I Total Protein Albumin Globulin Albumin/Globulin Ratio Quality Measures - VTE Contraindication to Pharmacological VTE Prophylaxis: Already on Theraputic Agent , No Prophylaxis Needed Specialty Discharge - Follow Up or Referrals Follow up with: Rigoberto Cardona MD [Physician] - 2 Weeks () <Sulaiman Steele - Last Filed: 02/08/17 15:02> Cardiology - PN: Subj Interval history: Patient personally interviewed and examined and chart reviewed. Discussed this case with Charlene Vickers NP. Agree with the assessment and evaluation and plan. The patient was asked to set up to be discharged today but there appears to be some small pneumothoraxes bilaterally. Anyway the patient has been asymptomatic. He is having good bowel movements now. Cardiac johnson was done well without any dysrhythmias. His hemodynamics remained stable. The patient continues to be active walking. This I think is cardiac is stable and hopefully be discharged soon. Follow-up as an outpatient continue risk factor modification. Exam (Progress Note) - Constitutional Vitals: Period Temp Pulse Resp BP Sys/Espinal Pulse Ox Last 24 Hr 97.1 F-99.1 F 64-77 16-20 108-141/57-72 92-97 Result/EKG - Labs CBC & BMP: 02/08/17 04:57 02/08/17 04:57 Labs: Laboratory Results - last 24 hr 02/07/17 02/07/17 02/08/17 14:54 19:07 04:52 WBC RBC Hgb Hct MCV MCH MCHC RDW Plt Count MPV Neut % (Auto) Lymph % (Auto) [place] % (Auto) Eos % (Auto) Baso % (Auto) Neut # (Auto) Lymph # (Auto) [place] # (Auto) Eos # (Auto) Baso # (Auto) Immature Gran % Nucleated RBC % Immature Gran # Nucleated RBCs # Immature Plt Fraction Sodium Potassium Chloride Carbon Dioxide Anion Gap BUN Creatinine GFR Calculation BUN/Creatinine Ratio Glucose POC Glucose 236 H 169 H 126 H Calculated Osmolality Calcium Magnesium Total Bilirubin Direct Bilirubin Indirect Bilirubin AST ALT Alkaline Phosphatase Total Creatine Kinase CK-MB (CK-2) Troponin I Total Protein Albumin Globulin Albumin/Globulin Ratio 02/08/17 02/08/17 02/08/17 04:57 04:57 08:25 WBC 9.3 RBC 3.56 L Hgb 12.1 L Hct 34.6 L MCV 97.2 MCH 34 MCHC 35.0 RDW 14.1 Plt Count 132 MPV 12.1 H Neut % (Auto) 67.2 Lymph % (Auto) 19.1 L [place] % (Auto) 10.0 Eos % (Auto) 3.0 Baso % (Auto) 0.1 Neut # (Auto) 6.3 Lymph # (Auto) 1.8 [place] # (Auto) 0.9 H Eos # (Auto) 0.3 Baso # (Auto) 0.0 Immature Gran % 0.6 Nucleated RBC % 0.0 Immature Gran # 0.06 Nucleated RBCs # 0.00 Immature Plt Fraction 0.0 Sodium 139 Potassium 3.7 Chloride 104 Carbon Dioxide 28 Anion Gap 10.7 BUN 15 Creatinine 0.80 GFR Calculation 99 BUN/Creatinine Ratio 18.00 Glucose 115 H POC Glucose 139 H Calculated Osmolality 278.5 Calcium 8.1 L Magnesium 2.4 Total Bilirubin 0.90 Direct Bilirubin 0.300 H Indirect Bilirubin 0.6 AST 36 ALT 63 H Alkaline Phosphatase 101 Total Creatine Kinase 128 D CK-MB (CK-2) 2.1 Troponin I 4.900 H D Total Protein 5.6 L Albumin 3.1 L Globulin 2.5 Albumin/Globulin Ratio 1.2 02/08/17 12:17 WBC RBC Hgb Hct MCV MCH MCHC RDW Plt Count MPV Neut % (Auto) Lymph % (Auto) [place] % (Auto) Eos % (Auto) Baso % (Auto) Neut # (Auto) Lymph # (Auto) [place] # (Auto) Eos # (Auto) Baso # (Auto) Immature Gran % Nucleated RBC % Immature Gran # Nucleated RBCs # Immature Plt Fraction Sodium Potassium Chloride Carbon Dioxide Anion Gap BUN Creatinine GFR Calculation BUN/Creatinine Ratio Glucose POC Glucose 161 H Calculated Osmolality Calcium Magnesium Total Bilirubin Direct Bilirubin Indirect Bilirubin AST ALT Alkaline Phosphatase Total Creatine Kinase CK-MB (CK-2) Troponin I Total Protein Albumin Globulin Albumin/Globulin Ratio
[2017-02-08] MEDS: INSULIN GLARGINE 100 UNIT/ML SUBCUT SCH (21:36)
[2017-02-08] MEDS: ROSUVASTATIN 20 MG TABLET PO SCH (21:36)
[2017-02-09 05:59] LABS: Basophils % 0.1 % (0.0-0.8); Eosinophils # 0.3 10*3/uL (0.0-0.87); Eosinophils % 3.1 % (0.00-10.9); Hematocrit 32.5 VOL% (42.0-52.0); Hemoglobin 11.5 GM/DL (14.0-18.0); Immature Granulocytes % 0.6 %; Immature Granulocytes Absolute 0.05 #; Lymphocytes # 1.6 10*3/uL (1.4-4.0); Lymphocytes % 19.4 % (21.2-54.2); Mean Corpuscular HGB Conc 35.4 GM/DL (32-36); Mean Corpuscular Hemoglobin 34 PG (27-34); Mean Corpuscular Volume 96.2 FL (87-102); Mean Platelet Volume 11.7 FL (9.6-12.0); Monocytes # 0.8 10*3/uL (0.11-0.8); Neutrophils # 5.7 10*3/uL (1.4-7.4); Neutrophils % 67.8 % (38.7-73.9); Platelet Count 171 T/CUMM (130-400); Red Blood Count 3.38 MC/CUMM (3.8-5.5); White Blood Count 8.4 T/CUMM (4-12)
[2017-02-09 06:32] LABS: Magnesium 2.4 MG/DL (1.8-2.4); Osmolality,Calculated 276.7 MOS/KG (273-304); Potassium 3.7 MMOL/L (3.5-5.1)
[2017-02-09 07:50] VITALS: BP 116/65
--- NOTE | 2017-02-09 08:37 | Discharge Summary ---
Hospital Course - Hospital Course Hospital Course: Patient is a 71-year-old man who presented to the emergency room with acute onset of substernal chest discomfort. He was admitted for treatment and evaluation including cardiac catheterization which demonstrated severe critical three-vessel coronary disease. Patient was advised to have bypass surgery and was referred for that purpose. He has been generally healthy in the past without significant medical or surgical illnesses. Past medical history review of systems social history and family history are documented in his admission note. Hospital course patient was taken to surgery with three-vessel bypass grafting was carried out with a left internal mammary graft to the diagonal coronary artery saphenous vein grafts to the obtuse marginal and right posterior descending coronary vessels. Patient's postoperative course was essentially uncomplicated and he was discharged home on the eighth postoperative day with instructions to return for follow-up in 1 month. Discharge medications are listed below. Specialty Discharge - Follow Up or Referrals Follow up with: Rigoberto Cardona MD [Physician] - 2 Weeks () Jay Rose MD [Physician] - 1 Month Discharge Plan - Discharge Data Disposition: Disch To Home/Self Care Condition at Discharge: Stable Discharge Diet: advance to your usual diet Activity: resume usual activities as tolerated Hygiene: no restrictions Weight Bearing at Discharge: full weight bearing Driving: not for (10 days) - Discharge Medications Continue Rosuvastatin Calcium 10 mg PO QAM Aspirin 162.5 mg PO QAM Metoprolol Succinate Xl [Toprol Xl] 100 mg PO QAM Glimepiride 2 mg PO QAM - Follow Up or Referral Follow Up: Rigoberto Cardona MD [Physician] - 2 Weeks () - Forms/Instructions Instructions: Heart Healthy Diet (GEN), Coronary Artery Bypass Graft, Design Printing Machine Set Up Operator (GEN), Sternal Precautions (GEN) Exam - Constitutional Vitals: Period Temp Pulse Resp BP Sys/Espinal Pulse Ox Last 24 Hr 97.9 F-99.6 F 72-84 16-20 113-144/65-72 90-94 Discharge Results Procedures and tests throughout hospitalization: Pending Orders 01/28/17 15:03 Occult Blood, Stool Routine 01/31/17 05:15 Fresh Frozen Plasma IN AM Red Blood Cells Leuko Red IN AM Single Donor Platelets IN AM Type and Screen IN AM 02/09/17 04:00 XR chest 2V IN AM Labs on day of discharge: Labs from last 24 hours 0902/09/17 02/09/17 07:43 04:45 04:45 WBC 8.4 RBC 3.38 L Hgb 11.5 L Hct 32.5 L MCV 96.2 MCH 34 MCHC 35.4 RDW 14.0 Plt Count 171 D MPV 11.7 Neut % (Auto) 67.8 Lymph % (Auto) 19.4 L [place] % (Auto) 9.0 Eos % (Auto) 3.1 Baso % (Auto) 0.1 Neut # (Auto) 5.7 Lymph # (Auto) 1.6 [place] # (Auto) 0.8 Eos # (Auto) 0.3 Baso # (Auto) 0.0 Immature Gran % 0.6 Nucleated RBC % 0.0 Immature Gran # 0.05 Nucleated RBCs # 0.00 Immature Plt Fraction 0.0 Sodium 138 Potassium 3.7 Chloride 103 Carbon Dioxide 27 Anion Gap 11.7 BUN 14 Creatinine 0.80 GFR Calculation 99 BUN/Creatinine Ratio 17.00 Glucose 120 H POC Glucose 191 H Calculated Osmolality 276.7 Calcium 8.0 L Magnesium 2.4 02/08/17 02/08/17 02/08/17 20:47 16:01 12:17 WBC RBC Hgb Hct MCV MCH MCHC RDW Plt Count MPV Neut % (Auto) Lymph % (Auto) [place] % (Auto) Eos % (Auto) Baso % (Auto) Neut # (Auto) Lymph # (Auto) [place] # (Auto) Eos # (Auto) Baso # (Auto) Immature Gran % Nucleated RBC % Immature Gran # Nucleated RBCs # Immature Plt Fraction Sodium Potassium Chloride Carbon Dioxide Anion Gap BUN Creatinine GFR Calculation BUN/Creatinine Ratio Glucose POC Glucose 202 H 208 H 161 H Calculated Osmolality Calcium Magnesium DS: Provider Date of admission: 01/30/17 11:47 Primary care physician: . No PCP Attending physician on admission: Spencer Au MD Consults: 01/28/17 10:24 Consult to Diabetes Center, Educator [CONS] Routine Reason for Inspector Watch Train: Diabetes Education 02/03/17 08:37 Consult to Cardiac Rehabilitation [CONS] Routine Reason for Cardiac Rehabilitation: Other Consult Comment: Post CABG/heart surgery Consult to Diabetes Center, Educator [CONS] Routine Reason for Inspector Watch Train: Diabetes Education Initial Insulin Education Consult Comment: insulin education Consult to Dietitian [CONS] Routine Reason for Dietitian: Dietary Consult Consult Comment: Cardiac, low salt, low cholesterol diet Consult to Physical Therapy [CONS] Routine Reason for Physical Therapy: Other Consult Comment: CV Rehab 02/06/17 08:12 Consult to Sleep Center [CONS] Routine Reason for Sleep Center: Technologist Assist Other Consult Comment: contact pt. for scheduling appt. in 4 to 6 weeks Discharging clinician: Jay Rose MD Expected date of discharge: 02/09/17
--- NOTE | 2017-02-09 08:45 | XRay Report ---
XR chest 2V Date: 02/09/2017 4:00 AM History: Follow-up pneumothorax Comparison: 02/08/2017 Technique: PA and lateral chest Findings: The heart remains minimally enlarged with recent median sternotomy. Smaller pneumothoraces. There is a residual left pneumothorax which measures 10 mm from the pleural line to the lung apex compared to 22 mm on the previous exam. Interval development of subcutaneous emphysema in the anterior chest and neck location. Residual atelectasis at the lung bases with small pleural effusions.. Impression: Smaller pneumothoraces with progressive subcutaneous emphysema. Status post median sternotomy with stable right IJ CVP line. Residual atelectasis at the lung bases with small pleural effusions. Follow-up chest x-ray recommended. PROCEDURE INTERPRETED AT [facility] DEPARTMENT OF RADIOLOGY Final Report Signed by: Dr. Sandra Zayas
[2017-02-09] MEDS: INSULIN LISPRO 100 UNIT/ML SUBCUT SCH (08:52)
[2017-02-09] MEDS: PANTOPRAZOLE 40 MG TABLET PO SCH (08:54)
[2017-02-09] MEDS: ASPIRIN EC 325 MG TABLET PO SCH (08:54)
[2017-02-09] MEDS: LISINOPRIL 5 MG TABLET PO SCH (08:54)
[2017-02-09] MEDS: DOCUSATE SODIUM 100 MG CAPSULE PO SCH (08:54)
[2017-02-09] MEDS: GLIMEPIRIDE 2 MG TABLET PO SCH (08:54)
[2017-02-09] MEDS: METOPROLOL SUCCINATE XL 25 MG TABLET PO SCH (08:54)
[2017-02-09] MEDS: FERROUS SULFATE 325 MG TABLET PO SCH (08:54)
[2017-02-09] MEDS: CHLORHEXIDINE 0.12% ORAL RINSE 60 ML BOTTLE SWISH/SPIT SCH (08:55)
--- NOTE | 2017-02-09 09:17 | Cardiology Progress Note ---
<Charlene Vickers - Last Filed: 02/09/17 09:21> Assessment and Plan (1) S/P CABG x 3 Status: Acute Assessment and plan: SEE PLAN OF CARE LISTED BELOW. (2) Coronary artery disease Status: Acute Assessment and plan: SEE PLAN OF CARE LISTED BELOW. (3) Obstructive sleep apnea Status: Chronic Assessment and plan: SEE PLAN OF CARE LISTED BELOW. (4) Diabetes mellitus Status: Chronic Assessment and plan: SEE PLAN OF CARE LISTED BELOW. Qualifiers: Diabetes mellitus type: type 2 Diabetes mellitus complication status: with hyperglycemia Diabetes mellitus adjunct faculty for medical terminology insulin use: without adjunct faculty for medical terminology use Qualified Code(s): E11.65 - Type 2 diabetes mellitus with hyperglycemia (5) Hyperlipidemia Status: Chronic Assessment and plan: SEE PLAN OF CARE LISTED BELOW. Qualifiers: Hyperlipidemia type: unspecified Qualified Code(s): E78.5 - Hyperlipidemia , unspecified (6) Hypertension Status: Chronic Assessment and plan: SEE PLAN OF CARE LISTED BELOW. Qualifiers: Hypertension type: essential hypertension Qualified Code(s): I10 - Essential (primary) hypertension (7) Thrombocytopenia Status: Acute Assessment and plan: SEE PLAN OF CARE LISTED BELOW. (8) Hypokalemia Status: Acute Assessment and plan: SEE PLAN OF CARE LISTED BELOW. (9) Bilateral pneumothoraces Status: Acute Assessment and plan: SEE PLAN OF CARE LISTED BELOW. Cardiology - PN: Subj Interval history: COLLATOR HAND: new to Dr. Cardona SUMMARY Mr. Matos is a 71-year-old WM who was not previously known to cardiology. He is admitted to the hospital with sudden onset chest pain, atypical. He had an abnormal stress test and underwent cardiac catheterization which revealed severe 3 vessel coronary artery disease. He was referred to Dr. Rose for CABG. He underwent CABG February 01, 2017 with a HESS to diagonal, SVG to obtuse marginal and SVG to right PDA. 2016 Mr. Matos is seen and examined on the telemetry unit. Post op day #8 from CABG with HESS to diagonal, SVG to obtuse marginal and SVG to right PDA. He is hemodynamically stable. Repeat chest x-ray this morning revealed smaller pneumothoraces. Dr. Rose has reviewed this and feels that patient is stable for discharge home today. He is hemodynamically stable. Continues to do well on room air. He is without complaint of chest pain, heaviness or tightness. Denies shortness of breath or dyspnea on exertion. Telemetry continues to be without overt arrhythmia. Tolerating aspirin, beta-tono, SURAJ inhibitor and lipid-lowering agent well. Patient is stable for discharge home today from a cardiac standpoint. I will further discuss with Dr. Steele and await his additional recommendations. REVIEW OF SYSTEMS: Denies chest pain, heaviness or tightness. Denies heart racing or palpitations. Denies shortness of breath, dyspnea on exertion, pain with inspiration IMPRESSION/PLAN: 1. CORONARY ARTERY DISEASE, STATUS POST CABG X 3: Patient is post operative day #8 from CABG x3 with HESS to diagonal, SVG to obtuse marginal, and SVG to right PDA. Doing well postoperatively. Tolerating aspirin, beta-blockade, SURAJ inhibitor and lipid-lowering agent well. Patient is stable for discharge home from a cardiac standpoint. I will further discuss with Dr. Steele and await his additional recommendations. 2. HYPERTENSION: Blood pressure is well controlled. Continue current plan of care. Tolerating beta-blockade and SURAJ inhibitor well. 3. DIABETES MELLITUS: Hospital medicine following. Hemoglobin A1c 6.9. 4. HYPERLIPIDEMIA: LDL 96. Continue lipid-lowering agent. Patient will need repeat lipid panel in 4-6 weeks. 5. THROMBOCYTOPENIA - Resolved. 6. SOHAN - Dr. Warner has been consulted. Plan to follow-up as an outpatient. 7. HYPOKALEMIA - 3.7 today. 8. SMALL BILATERAL PNEUMOTHORACES - Patient is asymptomatic. Repeat chest x- ray reveals smaller pneumothoraces. Patient is stable for discharge home today. I have printed patient prescription for lisinopril 5 mg p.o. daily as he was on this medication in the hospital and tolerated this medication well. He will benefit from being on SURAJ inhibitor as he is diabetic with history of CAD. I have decreased his Toprol-XL to 50 mg daily as this is what he was on in the hospital and was tolerating well. I have educated patient and nurse of medication changes. They verbalized understanding. Exam (Progress Note) - Constitutional Vitals: Period Temp Pulse Resp BP Sys/Espinal Pulse Ox Last 24 Hr 97.9 F-99.6 F 72-84 16-20 113-144/65-72 90-94 Exam: General: Appears well with no apparent distress. Pleasant and cooperative. Appears comfortable. HEENT: PERRL, normocephalic, atraumatic. Mucous membranes moist. No jaundice noted. Conjunctiva moist and clear, sclerae anicteric Neck: No JVD/HJR, no thyromegaly or lymphadenopathy noted. No carotid bruit appreciated Cardiac: Regular rate and rhythm. No murmur rub or gallop. Midsternal surgical incision healing well without signs of infection. Lungs: Clear to auscultation without accessory muscle use to assist the respiratory pattern. Not requiring oxygen Abdomen: Soft, bowel sounds present. Nontender and nondistended. No abdominal bruit or thrill noted. No masses noted. Extremities: No clubbing, cyanosis noted. Trace edema to bilateral lower extremities. Upper extremity pulses 2+. Lower extremity pulses 2+. Capillary refill less than 3 seconds. Surgical incision to bilateral lower extremities healing well without signs of infection. Skin: No unusual lesions or rashes. No skin breakdown appreciated. Neuro: Awake, alert and oriented 3. Moves all extremities well without hemiparesis or paralysis. No essential tremor is appreciated. Result/EKG - Labs CBC & BMP: 02/09/17 04:45 02/09/17 04:45 Lab Results: I have reviewed the past 24 hour labs Labs: Laboratory Results - last 24 hr 02/08/17 02/08/17 02/08/17 12:17 16:01 20:47 WBC RBC Hgb Hct MCV MCH MCHC RDW Plt Count MPV Neut % (Auto) Lymph % (Auto) [place] % (Auto) Eos % (Auto) Baso % (Auto) Neut # (Auto) Lymph # (Auto) [place] # (Auto) Eos # (Auto) Baso # (Auto) Immature Gran % Nucleated RBC % Immature Gran # Nucleated RBCs # Immature Plt Fraction Sodium Potassium Chloride Carbon Dioxide Anion Gap BUN Creatinine GFR Calculation BUN/Creatinine Ratio Glucose POC Glucose 161 H 208 H 202 H Calculated Osmolality Calcium Magnesium 02/09/17 02/09/17 02/09/17 04:45 04:45 07:43 WBC 8.4 RBC 3.38 L Hgb 11.5 L Hct 32.5 L MCV 96.2 MCH 34 MCHC 35.4 RDW 14.0 Plt Count 171 D MPV 11.7 Neut % (Auto) 67.8 Lymph % (Auto) 19.4 L [place] % (Auto) 9.0 Eos % (Auto) 3.1 Baso % (Auto) 0.1 Neut # (Auto) 5.7 Lymph # (Auto) 1.6 [place] # (Auto) 0.8 Eos # (Auto) 0.3 Baso # (Auto) 0.0 Immature Gran % 0.6 Nucleated RBC % 0.0 Immature Gran # 0.05 Nucleated RBCs # 0.00 Immature Plt Fraction 0.0 Sodium 138 Potassium 3.7 Chloride 103 Carbon Dioxide 27 Anion Gap 11.7 BUN 14 Creatinine 0.80 GFR Calculation 99 BUN/Creatinine Ratio 17.00 Glucose 120 H POC Glucose 191 H Calculated Osmolality 276.7 Calcium 8.0 L Magnesium 2.4 Quality Measures - VTE Contraindication to Pharmacological VTE Prophylaxis: Already on Theraputic Agent , No Prophylaxis Needed Specialty Discharge - Follow Up or Referrals Follow up with: Rigoberto Cardona MD [Physician] - 02/22/17 1:00 pm () Jay Rose MD [Physician] - 1 Month <Sulaiman Steele - Last Filed: 02/10/17 02:47> Cardiology - PN: Subj Interval history: Patient personally seen by me examined chart reviewed and case discussed with Charlene Vickers [employer]IL WORK[employer]. Patient stable cardiac stable and okay for discharge as noted. Exam (Progress Note) - Constitutional Vitals: Period Temp Pulse Resp BP Sys/Espinal Pulse Ox Last 24 Hr 97.9 F-99.6 F 74-78 18-20 116-144/65-71 91-94 Result/EKG - Labs CBC & BMP: 02/09/17 04:45 02/09/17 04:45 Labs: Laboratory Results - last 24 hr 02/09/17 02/09/17 02/09/17 04:45 04:45 07:43 WBC 8.4 RBC 3.38 L Hgb 11.5 L Hct 32.5 L MCV 96.2 MCH 34 MCHC 35.4 RDW 14.0 Plt Count 171 D MPV 11.7 Neut % (Auto) 67.8 Lymph % (Auto) 19.4 L [place] % (Auto) 9.0 Eos % (Auto) 3.1 Baso % (Auto) 0.1 Neut # (Auto) 5.7 Lymph # (Auto) 1.6 [place] # (Auto) 0.8 Eos # (Auto) 0.3 Baso # (Auto) 0.0 Immature Gran % 0.6 Nucleated RBC % 0.0 Immature Gran # 0.05 Nucleated RBCs # 0.00 Immature Plt Fraction 0.0 Sodium 138 Potassium 3.7 Chloride 103 Carbon Dioxide 27 Anion Gap 11.7 BUN 14 Creatinine 0.80 GFR Calculation 99 BUN/Creatinine Ratio 17.00 Glucose 120 H POC Glucose 191 H Calculated Osmolality 276.7 Calcium 8.0 L Magnesium 2.4
== END 2017-02-09 12:30 | disposition home or self-care (01) | DRG 234 ==
LOC: N.EDINP 04:24 → N.ED 04:24 → SUATTDRO 08:11 → N.EDINP 09:58 → N.TELEN 10:14 → SUATTDRO 01-30 11:47 → N.CVR 02-01 12:55 → N.ICU 02-02 07:28 → N.TELES 02-03 10:48
PROVIDERS: ADMIT Internal Medicine; ATTEND Family Medicine